=== PATIENT | male | born 1945 | race Caucasian/White ===

== ENCOUNTER → 2017-11-02 11:19 | Outpatient (CLI) | payer MEDICARE, OTHER, SELFPAY ==
--- NOTE | 2017-11-02 | DI.CT.S_ITS ---
PROCEDURE: CT CHEST WO CON INDICATIONS: Pneumonia. TECHNIQUE: Noncontrast 5 mm thick sections acquired from the pulmonary apices to the posterior costophrenic angles. 7 mm thick coronal and sagittal MIP reformats were then acquired. For radiation dose reduction, the following was used: automated exposure control, adjustment of mA and/or kV according to patient size. COMPARISON: None. FINDINGS: Image quality: Excellent. Lungs and pleura: No pleural effusion or pneumothorax. Left basilar subpleural ill-defined nodularity and surrounding groundglass attenuation. Elsewhere, scattered scarring/atelectasis. Central airways appear grossly patent. Mediastinum: Heart size is normal. No pericardial effusion. Coronary artery calcifications. No mediastinal adenopathy by size criteria. Thoracic aorta and central pulmonary arteries are normal in size. Esophagus is normal in caliber. No hiatal hernia. Bones and chest wall: No suspicious bony lesions. No vertebral body compression fractures. No axillary or supraclavicular adenopathy by size criteria. Thyroid gland negative. Abdomen: Visualized upper abdominal solid organs and bowel loops appear normal in the absence of contrast. IMPRESSION: Left basilar subpleural ill-defined 1 cm nodularity and surrounding groundglass attenuation which could represent bronchopneumonia however cannot exclude malignant/metastatic pulmonary nodule; recommend followup noncontrast chest CT in 2 months after treatment. Please correlate clinically. Dictated by: Chris Rico M.D. on 11/02/2017 at 15:23 Approved by: Chris Rico M.D. on 11/02/2017 at 15:32
--- NOTE | 2017-11-03 16:30 | DI.NM.S_ITS ---
DATE OF SERVICE: 11/02/2017 PROCEDURE: Pharmacologic perfusion study. INDICATIONS: Atrial flutter. RADIOPHARMACEUTICAL: 25.1 mCi of technetium-99m Myoview IV was injected at stress, and 24.9 mCi of technetium-99m Myoview IV was injected at rest. CARDIAC STRESS: Initially patient attempted exercise stress test but was able to walk only 1 minute 40 seconds and developed shortness of breath. Oxygen saturation dropped to 88%. The patient was converted to Lexiscan perfusion study. The patient received IV Lexiscan as per standard protocol under the supervision of an attending staff. He remained hemodynamically stable. Baseline rhythm was atypical atrial flutter with controlled ventricular rate with underlying right bundle branch block. There were some nonspecific ST-T changes. During stress, the patient remained in atrial flutter with nonspecific ST-T changes. No new convincing significant inducible ischemic changes or new arrhythmias. The patient didn't have any chest pain; however, he had shortness of breath. RAW DATA: The patient's weight is 220 pounds. There was increased subdiaphragmatic activity. GATED STUDY: Resting LV ejection fraction 58% and stress LV ejection fraction 63%. I don't see any obvious wall motion abnormalities. Resting end-diastolic volume 135 mL. No transient ischemic dilatation. TID ratio is 1.01, which is within normal limits. Lung/heart ratio is 0.32, which is within normal limits. MYOCARDIAL PERFUSION SCAN: Stress supine and resting supine images were compared to each other. Please note that this patient does not have any prone images. The patient was imaged with the right arm down. There appears to be predominantly fixed small-sized mildly decreased perfusion of base-to-mid inferior wall without any obvious reversible ischemia. CONCLUSION: There is a fixed small-sized mildly decreased perfusion of base-to- mid inferior wall. The patient does not have any prone images; hence, it is difficult to comment whether this is a true defect or attenuation artifact. However, inferior wall motion is preserved. There is no significant inferior wall motion abnormality, which goes against a diagnosis of previous transmural myocardial infarction involving inferior wall. His weight is 220 pounds. There is increased subdiaphragmatic activity. Hence, the likelihood that we are dealing with diaphragmatic tissue attenuation artifact is high. There is no reversible ischemia on perfusion scan. Overall LV function is preserved; hence, perfusion scan appears to a low risk myocardial perfusion scan. The patient has poor exercise tolerance. He developed hypoxemia during exertion. I would recommend ruling out a pulmonary etiology. Also, get 2-D echo to rule out any significant structural heart disease or diastolic dysfunction. Clinical correlation is recommended. Sebastien Erickson - EMMANUEL/carmelita/debbi doc#: [id number]/job#: [id number] dd: 11/03/2017 12:56:00 dt: 11/03/2017 15:22:00 DICTATING MD/COPIES TO: Sina Mooney MD COPIES MNE: MIKHAIL
== END ==
PROVIDERS: Family Provider Family Medicine; PCP Family Medicine; Visit Provider Family Medicine
DX: J18.9 Pneumonia, unspecified organism (principal); R91.8 Other nonspecific abnormal finding of lung field; I48.92 Unspecified atrial flutter
CPT/HCPCS: 71250; 78452; 93016; 93017; 93018; A9502; J2785

== ENCOUNTER → 2018-01-24 12:30 | Outpatient (CLI) | payer MEDICARE, OTHER, SELFPAY ==
--- NOTE | 2018-01-24 | DI.CT.S_ITS ---
PROCEDURE: CT CHEST WO CON INDICATIONS: MASS OF LOWER LOBE TECHNIQUE: Noncontrast 5 mm thick sections acquired from the pulmonary apices to the posterior costophrenic angles. 7 mm thick coronal and sagittal MIP reformats were then acquired. For radiation dose reduction, the following was used: automated exposure control, adjustment of mA and/or kV according to patient size. COMPARISON: [facility], CR, CHEST 2 VIEW, 08/25/2014, 17:13. [facility], CT, CT CHEST WO CON, 11/02/2017, 14:07. FINDINGS: Image quality: Excellent. Lungs and pleura: The subpleural nodule in the left lower lobe seen on 11/02/2017 has decreased in size, most likely round atelectasis. There are no bilateral patchy ground glass infiltrates involving both upper and lower lobes, consistent with pneumonitis or pneumonia. No pleural effusions or pneumothorax. Central and peripheral airways are patent and normal in caliber. Mediastinum: Heart size is normal. No pericardial effusion. There is moderate to severe coronary artery calcification. No mediastinal adenopathy by size criteria. Thoracic aorta and central pulmonary arteries are normal in size. Esophagus is normal in caliber. No hiatal hernia. Bones and chest wall: No suspicious bony lesions. No vertebral body compression fractures. No axillary or supraclavicular adenopathy by size criteria. Thyroid gland is normal. Abdomen: Visualized upper abdominal solid organs and bowel loops appear normal in the absence of contrast. IMPRESSION: 1. The subpleural nodular density in the left lower lobe has decreased in size, most likely round atelectasis. 2. New bilateral patchy groundglass infiltrates consistent with pneumonitis or pneumonia. Dictated by: Ady Estrada M.D. on 01/24/2018 at 13:06 Approved by: Ady Estrada M.D. on 01/24/2018 at 13:22
== END ==
PROVIDERS: PCP Family Medicine; Visit Provider Family Medicine
DX: R91.8 Other nonspecific abnormal finding of lung field (principal)
CPT/HCPCS: 71250

== ENCOUNTER → 2020-09-16 09:11 | Outpatient (CLI) | payer MEDICARE, OTHER, SELFPAY ==
--- NOTE | 2020-09-16 | DI.RAD.S_ITS ---
PROCEDURE: XR KNEE LT 3V INDICATIONS: LEFT KNEE PAIN TECHNIQUE: 3 views of the knee were acquired. COMPARISON: None. FINDINGS: Bones: No fractures or dislocations. No suspicious bony lesions. Note is made of a moderately severe degree of medial compartment joint space narrowing and also similar narrowing at the lateral facet of the patellofemoral joint. On the lateral view there is calcification posterior to the knee potentially intra-articular loose bodies. The largest is seen at the knee joint space level, measuring up to 1.6 cm in maximal dimension. Soft tissues: No joint effusion. No suspicious soft tissue calcifications. IMPRESSION: Moderately severe knee joint osteoarthritis at the medial compartment and lateral facet of the patellofemoral joint. Suspect intra-articular loose body at the posterior border of the knee joint measuring up to 1.6 cm. Dictated by: Ham Dixon M.D. on 09/16/2020 at 10:38 Approved by: Ham Dixon M.D. on 09/16/2020 at 10:39
[2020-09-16 09:54] LABS: Bacteria Urine None Seen; WBC Urine None Seen (0-5/HPF)
[2020-09-16 10:31] LABS: Add Manual Diff / Slide Review NO; Basophils Absolute Auto 0 /uL (0-100); Basophils Percent Auto 0.6 % (0-2); Eosinophils Absolute Auto 100 /uL (0-450); Hematocrit 48.6 % (41-53); Lymphocytes Absolute Auto 1600 /uL (1100-4500); Lymphocytes Percent Auto 21.3 % (25-40); Mean Corpuscular HGB Conc 32.9 % (30-36); Mean Corpuscular Hemoglobin 29.8 PG (26-34); Mean Corpuscular Volume 90.5 fL (80-100); Monocytes Absolute Auto 500 /uL (0-900); Monocytes Percent Auto 6.6 % (3-14); Neutrophils Absolute Auto 5100 /uL (1500-7000); Neutrophils Percent Auto 69.5 % (50-75); Platelet Count 198 X10^3/uL (150-400); Red Blood Cell Count 5.37 X10^6/uL (4.5-5.9); Red Cell Distribution Width 14.6 % (11.6-14.8); White Blood Cell Count 7.4 X10^3/uL (4.5-11.0)
[2020-09-16 10:36] LABS: Appearance Urine UA CLEAR; Bilirubin Urine UA NEGATIVE (NEGATIVE); Color Urine UA YELLOW; Glucose Urine UA NEGATIVE (Negative); Ketones Urine UA NEGATIVE (NEGATIVE); Leukocyte Esterase Urine UA NEGATIVE (NEGATIVE); Nitrite Urine UA NEGATIVE (Negative); Occult Blood Urine UA 1+ (Negative); Protein Urine UA NEGATIVE (Negative); Urobilinogen Urine UA 0.2 E.U./dL (0.2)
[2020-09-16 10:44] LABS: Alanine Aminotransferase 22 IU/L (<50); Albumin 4.3 g/dL (3.5-5.0); Albumin Globulin Ratio 1.1 (1.0-2.8); Alkaline Phosphatase 72 U/L (38-126); Aspartate Aminotransferase 27 IU/L (17-59); BUN Creatinine Ratio 28.2 (6-22); Bilirubin Total 1.2 mg/dL (0.2-1.3); Blood Urea Nitrogen 24 mg/dL (9-20); Calcium 9.5 mg/dL (8.4-10.2); Carbon Dioxide 31 mmol/L (22-32); Chloride 99 mmol/L (98-107); Culture Indicated Urine Cult Not Indicated; Estimated Glomerular Filt Rate > 60.0 mL/min (>60); Glucose 112 mg/dL (80-110); HEMOLYSIS < 15 (0-50); Magnesium 1.8 mg/dL (1.6-2.3); Potassium 4.3 mmol/L (3.4-5.1); RBC Urine 0-1/HPF (0-5/HPF); Sodium 137 mmol/L (137-145); Total Protein 8.3 g/dL (6.3-8.2)
[2020-09-16 10:56] LABS: Iron 127 ug/dL (49-181)
[2020-09-16 10:57] LABS: Erythrocyte Sedimentation Rate 2 MM/HR (0-15)
[2020-09-16 11:03] LABS: Creatinine Urine Random 53.5 mg/dL
[2020-09-16 11:06] LABS: Microalbumi Creatinin Ratio Ur 97.1 ug/mg CR (<30); Microalbumin Urine Random 5.2 mg/dL (0-1.6); Total Iron Binding Capacity 390 ug/dL (261-462)
[2020-09-16 11:16] LABS: Ferritin 17 ng/mL (18-464)
[2020-09-16 11:27] LABS: Thyroid Stimulating Hormone 1.27 uIU/mL (0.47-4.68)
[2020-09-16 11:46] LABS: Folate 11.9 ng/mL (2.76-20.0); Vitamin B12 378 pg/mL (239-931)
[2020-09-17 12:09] LABS: Homocysteine 12.3 umol/L (0.0-19.2); PSA Free % 34.4 % (.); PSA, Total 0.9 ng/mL (0.0-4.0)
[2020-09-18 00:56] LABS: Methylmalonic Acid,Serum 257 nmol/L (0-378)
== END ==
PROVIDERS: PCP Family Medicine; Referring Provider Family Medicine; Visit Provider Family Medicine
DX: M25.562 Pain in left knee (principal); M17.12 Unilateral primary osteoarthritis, left knee; I48.91 Unspecified atrial fibrillation; I48.3 Typical atrial flutter
CPT/HCPCS: 36415; 73562; 80053; 81001; 82043; 82570; 82607; 82728; 82746; 83090; 83540; 83550; 83735; 83921; 84153; 84154; 84443; 85025; 85651

== ENCOUNTER → 2020-11-20 13:12 | Outpatient (CLI) | payer MEDICARE, OTHER, SELFPAY ==
--- NOTE | 2020-11-20 | DI.ECHO.S_ITS ---
[facility]---------+ [facility] +---------+ : : [address] [place] : : : : [id number] : : : : Phone: [phone]+ Echocardiogram Report + + :Name: JENNIFER CARLOS Study Date: 11/20/2020 Height: 71 in : :[facility] ReadingLocation: Weight: 215 lb : : Gender: Male BSA: 2.2 m2 : :: 1945 Age: 75 yrs BP: 161/82 mmHg: :Reason For Study: Congestive Heart Failure : :Ordering Physician: SARINA, : :TIP Gordillo Performed By: Stephen Greenberg : :Referring: TIP BRANCH : + + Interpretation Summary Left ventricular systolic function is normal with an estimated ejection fraction of 60 to 65% without any focal wall motion abnormalities although the interventricular septum is flattened, consistent with a right ventricular pressure overload condition. Left ventricular size and wall thickness are normal. Diastolic function could not be accurately assessed because of his relatively rapid heart rate. The right ventricle is moderately enlarged and mildly hypokinetic. There is moderate pulmonary hypertension with the right ventricular systolic pressure estimated at 49 mmHg with a CVP of 3 mmHg. Left atrial size is normal while the right atrium is likely mild to moderately enlarged. There is moderate aortic valve sclerosis but no stenosis and mild to moderate tricuspid regurgitation but no other significant valvular abnormality. Procedure: A two-dimensional transthoracic echocardiogram with color flow and Doppler was performed. The study quality was technically adequate. There is no prior echocardiogram noted for this patient. The patient was in sinus rhythm with heart rates between 90-100 bpm during the exam. Left Ventricle: The left ventricle appears normal in size, wall thickness, and systolic function without any focal wall motion abnormalities. The ejection fraction is estimated to be 60-65%. The interventricular septum is flattened, consistent with a right ventricular pressure overload condition. Diastolic function could not be accurately assessed due to tachycardia. Right Ventricle: The right ventricle is moderately dilated. Right ventricular systolic function is mildly reduced. Atria: The left atrial size is normal. The right atrium is mild to moderately dilated. There is no Doppler evidence for an interatrial shunt. Mitral Valve: The mitral valve is normal in structure and function. There is mild mitral annular calcification. There is no mitral regurgitation noted. Aortic Valve: There is moderate aortic valve sclerosis. The aortic valve is moderately calcified. There is minimally reduced leaflet mobility. No aortic regurgitation is present. Tricuspid Valve: The tricuspid valve is normal in structure and function. There is mild to moderate tricuspid regurgitation. The right ventricular systolic pressure is estimated to be at least 49 mmHg based on an estimated right atrial pressure of 3 mm Hg. Pulmonic Valve: The pulmonic valve is normal in structure and function. There is a trace or physiologic amount of pulmonic regurgitation. Great Vessels: The aortic root is normal size. The dimensions of the ascending aorta are normal. The IVC is of normal diameter and collapses greater than 50% with a sniff. This suggests a low right atrial pressure of 3 mm Hg. Pericardium/ Pleura There is no pericardial effusion. There is no pleural effusion. MMode/2D Measurements & Calculations LVIDd: 5.0 cm LVOT diam: 2.1 cm LVIDs: 3.2 cm Ao root diam: 3.4 cm FS: 36.6 % asc Aorta Diam: 3.1 cm IVSd: 1.2 cm LVPWd: 1.0 cm LV alonzo. diameter/BSA (cm/m^2): 2.3 LV sys. diameter/BSA (cm/m^2): 1.5 LA A2 area: 14.0 cm2 RA area: 23.4 cm2 LA A4 area: 15.0 cm2 IVC diam: 1.5 cm LA length (vol): 4.8 cm LA vol: 37.0 ml LA vol index: 17.0 ml/m2 RVD1 (basal): 4.9 cm TAPSE: 1.5 cm Doppler Measurements & Calculations Ao V2 max: 175.7 cm/sec LVOT Max Chris: 109.9 cm/sec Ao V2 mean: 132.4 cm/sec LV V1 max P.8 mmHg Ao max P.3 mmHg LV V1 VTI: 18.6 cm Ao mean P.6 mmHg ERIC(I,D): 2.3 cm2 Ao V2 VTI: 27.8 cm ERIC(V,D): 2.2 cm2 sev ratio: 0.67 ERIC indexed to BSA (cm^2/m^2): 1.1 MV E max chris: 95.9 cm/sec TR max chris: 337.9 cm/sec MV A max chris: 130.7 cm/sec TR max P.7 mmHg MV E/A: 0.73 PA V2 max: 92.2 cm/sec MV dec time: 0.23 sec PA V2 mean: 65.0 cm/sec PA mean P.9 mmHg PA pr(Accel): 39.6 mmHg [facility] 63.9 ml Reading Physician:05:10 PM
== END ==
PROVIDERS: PCP Family Medicine; Referring Provider Family Medicine; Visit Provider Family Medicine
DX: I50.32 Chronic diastolic (congestive) heart failure (principal)
CPT/HCPCS: 93306

== ENCOUNTER → 2020-12-03 12:55 | Outpatient (CLI) | payer MEDICARE, OTHER, SELFPAY ==
--- NOTE | 2020-12-03 12:57 | DI.CT.S_ITS ---
PROCEDURE: CT CHEST WO CON INDICATIONS: Panlobular emphysema TECHNIQUE: Noncontrast 5 mm thick sections acquired from the pulmonary apices to the posterior costophrenic angles. 1 mm lung window, 5 mm thick coronal and sagittal and 7 mm axial MIP reformats were then acquired. For radiation dose reduction, the following was used: automated exposure control, adjustment of mA and/or kV according to patient size. COMPARISON: [facility], CT, CT CHEST WO CON, 01/24/2018, 12:31. [facility], CT, CT CHEST WO CON, 11/02/2017, 14:07. FINDINGS: Image quality: Excellent. Lungs and pleura: No acute air space opacities found. No evidence of early manifestation of lung malignancy. There is a chronic interstitial prominence and slight alveolitis superimposed, with centrilobular emphysema and no sign of chronic bronchitis or bronchiectasis. No pleural effusions or pneumothorax. Central and peripheral airways are patent and normal in caliber. Mediastinum: Heart size is normal. No pericardial effusion. No mediastinal adenopathy by size criteria. Thoracic aorta and central pulmonary arteries are normal in size. Esophagus is normal in caliber. No hiatal hernia. Bones and chest wall: No suspicious bony lesions. No vertebral body compression fractures. No axillary or supraclavicular adenopathy by size criteria. Thyroid gland is not well seen . Abdomen: Visualized upper abdominal solid organs and bowel loops appear normal in the absence of contrast. IMPRESSION: Stable interstitial lung disease and mild chronic alveolitis, without appreciable change from the earlier study in January of 2018. No sign of progression to pulmonary fibrosis. No pneumonia or neoplasm found. Dictated by: Ham Dixon M.D. on 12/03/2020 at 15:23 Approved by: Ham Dixon M.D. on 12/03/2020 at 15:27
== END ==
PROVIDERS: PCP Family Medicine; Referring Provider Family Medicine; Visit Provider Family Medicine
DX: J43.1 Panlobular emphysema (principal); J84.9 Interstitial pulmonary disease, unspecified; R91.8 Other nonspecific abnormal finding of lung field
CPT/HCPCS: 71250

== ENCOUNTER → 2021-03-26 08:11 | Outpatient (CLI) | payer MEDICARE, OTHER, SELFPAY ==
[2021-03-26 20:43] LABS: COVID19 - ORCAS (NP or Nasal) Negative (Negative)
== END ==
PROVIDERS: PCP Family Medicine; Visit Provider Family Medicine
DX: Z20.822 Contact with and (suspected) exposure to COVID-19 (principal)
CPT/HCPCS: C9803; U0003

== ENCOUNTER → 2021-04-27 11:33 | Outpatient (CLI) | payer MEDICARE, OTHER, SELFPAY ==
[2021-04-27 19:03] LABS: Add Manual Diff / Slide Review NO; Basophils Absolute Auto 0 /uL (0-100); Basophils Percent Auto 0.4 % (0-2); Eosinophils Absolute Auto 200 /uL (0-450); Eosinophils Percent Auto 1.7 % (2-4); Hematocrit 37.9 % (41-53); Hemoglobin 12.5 g/dL (13.5-17.5); Lymphocytes Absolute Auto 2100 /uL (1100-4500); Lymphocytes Percent Auto 23.1 % (25-40); Mean Corpuscular HGB Conc 33.1 % (30-36); Mean Corpuscular Hemoglobin 31.1 PG (26-34); Mean Corpuscular Volume 94.1 fL (80-100); Monocytes Absolute Auto 700 /uL (0-900); Monocytes Percent Auto 7.2 % (3-14); Neutrophils Absolute Auto 6200 /uL (1500-7000); Neutrophils Percent Auto 67.6 % (50-75); Platelet Count 217 X10^3/uL (150-400); Red Blood Cell Count 4.03 X10^6/uL (4.5-5.9); Red Cell Distribution Width 14.1 % (11.6-14.8); White Blood Cell Count 9.2 X10^3/uL (4.5-11.0)
[2021-04-27 19:12] LABS: BUN Creatinine Ratio 31.3 (6-22); Blood Urea Nitrogen 21 mg/dL (9-20); Calcium 9.2 mg/dL (8.4-10.2); Carbon Dioxide 29 mmol/L (22-32); Chloride 101 mmol/L (98-107); Estimated Glomerular Filt Rate > 60.0 mL/min (>60); Glucose 101 mg/dL (80-110); HEMOLYSIS < 15 (0-50); Potassium 4.3 mmol/L (3.4-5.1); Sodium 136 mmol/L (137-145)
== END ==
PROVIDERS: PCP Family Medicine; Referring Provider Internal Medicine Cardiovascular Disease; Visit Provider Internal Medicine Cardiovascular Disease
DX: I25.10 Atherosclerotic heart disease of native coronary artery without angina pectoris (principal); R94.39 Abnormal result of other cardiovascular function study
CPT/HCPCS: 80048; 85025

== ENCOUNTER → 2021-05-24 08:18 | Outpatient (CLI) | payer MEDICARE, OTHER, SELFPAY ==
[2021-05-26 00:26] LABS: COVID19 - ORCAS (NP or Nasal) Negative (Negative)
== END ==
PROVIDERS: PCP Family Medicine; Visit Provider Family Medicine
DX: Z20.822 Contact with and (suspected) exposure to COVID-19 (principal)
CPT/HCPCS: C9803; U0003

== ENCOUNTER → 2021-07-19 09:33 | Outpatient (CLI) | payer MEDICARE, OTHER, SELFPAY ==
[2021-07-19 20:34] LABS: COVID19 - ORCAS (NP or Nasal) Negative (Negative)
== END ==
PROVIDERS: PCP Family Medicine; Visit Provider Physician Assistant
DX: Z01.812 Encounter for preprocedural laboratory examination (principal); Z20.822 Contact with and (suspected) exposure to COVID-19
CPT/HCPCS: C9803; U0003

== ENCOUNTER → 2021-09-10 09:00 | Outpatient (CLI) | payer MEDICARE, OTHER, SELFPAY ==
[2021-09-10 18:38] LABS: Add Manual Diff / Slide Review NO; Basophils Absolute Auto 0 /uL (0-100); Basophils Percent Auto 0.7 % (0-2); Eosinophils Absolute Auto 200 /uL (0-450); Eosinophils Percent Auto 2.9 % (2-4); Hematocrit 40.8 % (41-53); Hemoglobin 12.6 g/dL (13.5-17.5); Lymphocytes Absolute Auto 1800 /uL (1100-4500); Lymphocytes Percent Auto 24.7 % (25-40); Mean Corpuscular HGB Conc 30.9 % (30-36); Mean Corpuscular Hemoglobin 22.9 PG (26-34); Mean Corpuscular Volume 73.9 fL (80-100); Monocytes Absolute Auto 600 /uL (0-900); Monocytes Percent Auto 8.3 % (3-14); Neutrophils Absolute Auto 4600 /uL (1500-7000); Neutrophils Percent Auto 63.4 % (50-75); Platelet Count 180 X10^3/uL (150-400); Red Blood Cell Count 5.53 X10^6/uL (4.5-5.9); Red Cell Distribution Width 19.8 % (11.6-14.8); White Blood Cell Count 7.2 X10^3/uL (4.5-11.0)
[2021-09-10 18:47] LABS: Blood Urea Nitrogen 24 mg/dL (9-20); Calcium 9.1 mg/dL (8.4-10.2); Carbon Dioxide 32 mmol/L (22-32); Chloride 101 mmol/L (98-107); Estimated Glomerular Filt Rate > 60.0 mL/min (>60); Glucose 116 mg/dL (80-110); HEMOLYSIS < 15 (0-50); Potassium 4.5 mmol/L (3.4-5.1); Sodium 139 mmol/L (137-145)
[2021-09-10 18:51] LABS: Hemoglobin A1C% w Est Avg Glu 6.4 % (4.0-6.0)
== END ==
PROVIDERS: PCP Family Medicine; Visit Provider Orthopaedic Surgery
DX: R73.9 Hyperglycemia, unspecified (principal); Z01.812 Encounter for preprocedural laboratory examination
CPT/HCPCS: 80048; 83036; 85025

== ENCOUNTER → 2021-09-13 08:56 | Outpatient (CLI) | payer MEDICARE, OTHER, SELFPAY ==
[2021-09-13 20:50] LABS: COVID19 - ORCAS (NP or Nasal) Negative (Negative)
== END ==
PROVIDERS: PCP Family Medicine; Visit Provider Family Medicine
DX: Z01.818 Encounter for other preprocedural examination (principal)
CPT/HCPCS: C9803; U0003

== ENCOUNTER → 2021-09-16 10:58 | Outpatient (CLI) | payer MEDICARE, OTHER, SELFPAY ==
[2021-09-16 20:01] LABS: Prostate Specific Antigen Scrn 0.799 ng/mL (0.1-4.0)
[2021-09-17 08:26] LABS: Cholesterol 119 mg/dL (140-199); HDL Cholesterol 52 mg/dL (40-60); LDL Cholesterol Calculated 46 mg/dL (<100); Triglycerides 105 mg/dL (35-150)
== END ==
PROVIDERS: PCP Physician Assistant; Visit Provider Physician Assistant
DX: Z12.5 Encounter for screening for malignant neoplasm of prostate (principal); E78.2 Mixed hyperlipidemia
CPT/HCPCS: 80061; G0103

== ENCOUNTER → 2021-10-04 09:36 | Outpatient (CLI) | payer MEDICARE, OTHER, SELFPAY ==
[2021-10-04 18:33] LABS: BUN Creatinine Ratio 30.3 (6-22); Blood Urea Nitrogen 27 mg/dL (9-20); Calcium 9.2 mg/dL (8.4-10.2); Carbon Dioxide 31 mmol/L (22-32); Chloride 103 mmol/L (98-107); Estimated Glomerular Filt Rate > 60 mL/min (>60); Glucose 111 mg/dL (80-110); HEMOLYSIS < 15 (0-50); Potassium 4.5 mmol/L (3.4-5.1); Sodium 141 mmol/L (137-145)
[2021-10-04 18:37] LABS: Add Manual Diff / Slide Review NO; Basophils Absolute Auto 100 /uL (0-100); Basophils Percent Auto 0.7 % (0-2); Eosinophils Absolute Auto 200 /uL (0-450); Eosinophils Percent Auto 2.1 % (2-4); Hematocrit 43.4 % (41-53); Hemoglobin 13.6 g/dL (13.5-17.5); Lymphocytes Absolute Auto 1800 /uL (1100-4500); Lymphocytes Percent Auto 23.8 % (25-40); Mean Corpuscular HGB Conc 31.4 % (30-36); Mean Corpuscular Hemoglobin 24.9 PG (26-34); Mean Corpuscular Volume 79.2 fL (80-100); Monocytes Absolute Auto 600 /uL (0-900); Monocytes Percent Auto 8.3 % (3-14); Neutrophils Absolute Auto 4900 /uL (1500-7000); Neutrophils Percent Auto 65.1 % (50-75); Platelet Count 149 X10^3/uL (150-400); Red Blood Cell Count 5.47 X10^6/uL (4.5-5.9); Red Cell Distribution Width 25.7 % (11.6-14.8); White Blood Cell Count 7.5 X10^3/uL (4.5-11.0)
[2021-10-04 18:38] LABS: Hemoglobin A1C% w Est Avg Glu 5.9 % (4.0-6.0)
[2021-10-04 18:55] LABS: Anisocytosis 2+; Microcytosis 1+; Poikilocytosis 1+; Polychromasia 1+
[2021-10-04 19:52] LABS: COVID19 - ORCAS (NP or Nasal) Negative (Negative)
== END ==
PROVIDERS: Orthopaedic Surgery; PCP Physician Assistant; Visit Provider Physician Assistant
DX: R73.9 Hyperglycemia, unspecified (principal); Z01.812 Encounter for preprocedural laboratory examination; Z20.822 Contact with and (suspected) exposure to COVID-19; I50.9 Heart failure, unspecified; R73.03 Prediabetes; D64.9 Anemia, unspecified
CPT/HCPCS: 80048; 83036; 85025; C9803; U0003

== ENCOUNTER 2021-10-06 09:27 | Day surgery (SDC) | payer MEDICARE, OTHER, SELFPAY ==
[2021-09-28 09:47] VITALS: BMI 31.4
[2021-10-06] VITALS (17 sets, daily range): BP systolic 103–151; BP diastolic 73–93; PULSE 70–93; RESP 10–19; TEMP 36–37; O2SAT 91–98; BMI 31.4
--- NOTE | 2021-10-06 06:00 | DI.RAD.S_ITS ---
PROCEDURE: XR KNEE LT 1TO2V INDICATIONS: postop total knee TECHNIQUE: 2 view(s) of the knee acquired. COMPARISON: [facility], CR, XR KNEE LT 3V, 09/16/2020, 9:21. FINDINGS: Bones: Patient is status post knee joint arthroplasty. Hardware components are in expected positions. Visualized bony structures are intact. Soft tissues: Overlying postoperative changes are noted. Diffuse atherosclerotic vascular calcification noted. IMPRESSION: Left total knee arthroplasty in good position. Approved by: Ronal Davies M.D. on 10/06/2021 at 15:56
[2021-10-06] MEDS: PREGABALIN 75 MG CAPSULE PO (09:58)
[2021-10-06] MEDS: CELECOXIB 200 MG CAPSULE PO (09:58)
[2021-10-06] MEDS: ACETAMINOPHEN 325 MG TABLET 975 MG PO (09:58)
--- NOTE | 2021-10-06 10:40 | PM.PREOP ---
Pre-operative Note COVID-19 COVID-19 status: Negative Result date/Date tested (Pos, Neg/Pending): 10/04/21 Interval Note History & Physical reviewed/Exam performed by Physician: Yes Changes to H&P: No
[2021-10-06] MEDS: CEFAZOLIN 2 GM/20 ML SYRINGE IV (11:49)
[2021-10-06] MEDS: TRANEXAMIC ACID 1,000 MG VIAL 1000 MG INJ ×2 (11:49→12:55)
--- NOTE | 2021-10-06 12:03 | SUR.OPER ---
Supine on padded OR bed. Pillow under head, arms secured on padded armboards <90 degree abduction. Safety belt across torso. Non-operative leg secured with tape over blanket over lower leg. Operative leg secured in [place]. Foam padded brace at thigh of operative leg.
--- NOTE | 2021-10-06 12:05 | SUR.OPER ---
Left calf and ankle with dry, flaky skin and purplish discoloration. No break in skin around surgical site. Small abrasion on left forearm which was present prior to patient arrival to hospital. Covered with band-aid. Not visualized.
[2021-10-06] MEDS: MORPHINE 4 MG/ML INJ INJ (12:42)
[2021-10-06] MEDS: BUPIVACAINE LIPOSOME 266 MG/20 ML VIAL INJ (12:42)
[2021-10-06] MEDS: BUPIVACAINE 0.25% (PF) 60 ML, EPINEPHrine 0.3 MG INJ (12:42)
[2021-10-06] MEDS: LACTATED RINGERS 1,000 ML 42 ML IV (13:18)
--- NOTE | 2021-10-06 13:19 | P.OP_ITS ---
Operative Date/Time/Diagnoses Date of procedure: 10/06/21 Time of procedure: 13:00 Pre-op diagnosis: Left knee osteoarthritis Post-op diagnosis: same Procedure & Clinicians Procedure: Left total knee replacement Same procedure as scheduled: Yes Indications: The patient has had progressively worsening left knee pain with radiographic changes consistent with arthritis. Non-operative management has failed and the patient has requested total knee replacement. The risks, benefits and alternatives to surgery were discussed with the patient prior to proceeding. Risks discussed included, but were not limited to, failure to relieve pain, stiffness, infection, nerve damage, deep venous thrombosis, pulmonary embolism, stroke, coma, heart attack, permanent paralysis and , as well as the potential need for eventual revision of the prosthetic. Surgeon: Gutierrez Torres Chopper Gun Operator: Fay Azevedo Click Yes if Unassisted: No Anesthesia Type: General and Local Operative Notes Findings: Severe medial and patellofemoral osteoarthritis moderate lateral osteoarthritis. Closure Type: primary Specimen(s): none sent Prosthetic devices, grafts, tissues, transplants, or devices: Implants used in this procedure were manufactured by the [employer] and included the BCS II Journey total knee replacement with a size 7 left cobalt chromium femur, size 6 left non porous tibial base plate, a 9 mm cross-linked polyethylene tibial insert and a 35 mm oval Christina II patella. Applied: implant(s) Estimated Blood Loss (mL): 25 Blood products transfused: none Tourniquet time (min): 58 Procedure in detail: The patient was seen in the pre-operative area, where the left knee was identified as the operative site and this was marked with my initials. The patient received pre-operative antibiotics, and was taken to the operating room and placed on the operative table in the supine position. After satisfactory anesthesia, a realtime reporter out was performed. The left leg was encircled with a tourniquet about the proximal thigh, and the leg was prepared from the toes to the tourniquet with ChloroPrep in the usual fashion and draped through sterile drapes. The leg was elevated and exsanguinated with Eschmark bandage and the tourniquet inflated to 250 mmHg pressure. The knee was approached through an approximately 18 cm incision centered over the patella and carried into the knee through a medial parapatellar arthrotomy. The anterior osteophytes and soft tissues were removed. The rotational landmarks of Lissette's line and the transepicondylar axis were marked on the femur with electrocautery, and intramedullary guide holes for the femur and tibia were created. The distal femoral cut was made in 6 degrees of valgus using the intramedullary guide at the +2 cut setting due to a flexion contracture The proximal tibial cut was then made using the intramedullary guide, taking 9 mm of bone off the less involved side. The extension gap was checked and the rotation of the femoral component confirmed with the gap balancing blocks. The anterior, posterior and chamfer cuts were then made. The posterior osteophytes and soft tissues were then removed. The posterior capsule was injected with part of a mixture of 60 ml 0.25% Marcaine mixed with 20 ml Exparel and 4 mg of morphine for post-operative pain control. The remainder of this mixture was injected into the capsule and subcutaneous tissues during cement curing. The tibia was prepared with the rotation set by an extra medullary guide. Trial tibial and femoral components were then placed and the intercondylar notch cut through the femoral trial. Range of motion was 0-135 degrees, with good stability throughout the range. The patella was then cut to accommodate the patellar prosthetic. There was no need for a lateral release. The trials were then removed, and the femoral hole plugged with a bone plug. The bone was prepared with pulsatile lavage, and dried with a sponge. Cement was applied and the final prosthetics placed. Excess cement was removed during and after cement curing. After confirming there was no extruded cement posteriorly, the final tibial insert was placed. The knee was copiously irrigated and the tourniquet deflated. Hemostasis was obtained. The capsule was closed with interrupted # 2 polyester sutures. The subcutaneous layer was closed with 3-0 Vicryl, and the skin with a running 3-0 V-Lock suture and Dermabond. An Aquacel Ag dressing was applied and the patient was taken to recovery having tolerated the procedure well. Complications: none Post-operative Condition: stable Disposition: PACU Plan for aftercare: The patient will be maintained on a standard total knee replacement protocol with weight bearing as tolerated. The patient will receive aspirin and sequential compression devices for DVT prophylaxis. The patient will be discharged home when safe for the home environment.
[2021-10-06] MEDS: fentaNYL 100 MCG/2 ML INJ IV (13:44)
[2021-10-06] MEDS: OXYCODONE IR 5 MG TABLET PO (13:56)
[2021-10-06] MEDS: MEPERIDINE 50 MG/ML INJ 12.5 MG IV (13:58)
[2021-10-06] MEDS: LACTATED RINGERS 1,000 ML 100 ML IV (15:33)
[2021-10-06] MEDS: ACETAMINOPHEN 325 MG TABLET 650 MG PO ×2 (15:33→21:04)
[2021-10-06] MEDS: IBUPROFEN 400 MG TABLET PO ×2 (18:18→21:03)
--- NOTE | 2021-10-06 19:31 | PC.NURSE ---
Pt arrived from PACU at 1510, A&Ox4, VSS on 2L NC. C/o 3/10 pain to L knee, paul wrap to knee c/d/i. Lungs dim to auscultation, CMS intact, no c/o nausea. +1 pitting edema to L foot, pedal pulses bilat intact. Pt resting comfortably in bed, oriented to room and call sesay. Will continue to monitor.
[2021-10-06] MEDS: BUDESONIDE 0.5 MG/2 ML NEB INH (20:00)
[2021-10-06] MEDS: ALBUTEROL 2.5 MG/3 ML NEB (ADULT) INH (20:00)
[2021-10-06] MEDS: ATORVASTATIN 20 MG TABLET 40 MG PO (21:03)
[2021-10-06] MEDS: DOCUSATE 100 MG CAPSULE PO (21:04)
[2021-10-06] MEDS: METFORMIN XR 500 MG TABLET PO (21:52)
[2021-10-07 02:00] VITALS: BP 105/66; PULSE 89; RESP 21; TEMP 36.5; O2SAT 95
[2021-10-07] MEDS: IBUPROFEN 400 MG TABLET PO ×2 (05:16→09:03)
[2021-10-07 06:28] VITALS: BP 150/69; PULSE 80; RESP 19; TEMP 36.6; O2SAT 95
[2021-10-07 07:00] LABS: Hematocrit 38.4 % (41-53); Hemoglobin 11.9 g/dL (13.5-17.5)
[2021-10-07] MEDS: ALBUTEROL 2.5 MG/3 ML NEB (ADULT) INH ×2 (07:53→11:49)
[2021-10-07] MEDS: BUDESONIDE 0.5 MG/2 ML NEB INH (07:54)
[2021-10-07 07:56] VITALS: O2SAT 93
--- NOTE | 2021-10-07 08:05 | PM.DS.1 ---
History of Present Illness History of Present Illness Date Patient Seen: 10/07/21 Time Patient Seen: 08:06 Chief complaint: Left knee pain s/p left TKA Narrative: Patient is complaining of [id number] left knee pain. He denies any nausea or vomiting, no fevers, chills, night sweats. The patient notes his photovoltaic testing technician recommended stopping his Plavix and changing to Xarelto 20 mg daily. He has not worked with physical therapy yet, overall he is feeling good would like to be discharged home today. Discharge Providers Provider Discharge Date: 10/07/21 Primary care physician: Heidi Calzada PA-C Consults: 10/06/21 15:01 Consult to Discharge Planning Routine Comment: Consult to Physical Therapy Evaluate & Treat Comment: Physician Instructions: postop TKA protocol Consult to Respiratory Therapy Evaluate & Treat Comment: Physician Instructions: Evaluate and treat Discharge provider: Fay Azevedo PA-C Summary Hospital Course Discharge Diagnosis: Left knee osteoarthritis Hospital Course: Operative Date/Time/Diagnoses Date of procedure: 10/06/21 Time of procedure: 13:00 Procedure & Clinicians Procedure: Left total knee replacement Same procedure as scheduled: Yes Indications: The patient has had progressively worsening left knee pain with radiographic changes consistent with arthritis. Non-operative management has failed and the patient has requested total knee replacement. The risks, benefits and alternatives to surgery were discussed with the patient prior to proceeding. Risks discussed included, but were not limited to, failure to relieve pain, stiffness, infection, nerve damage, deep venous thrombosis, pulmonary embolism, stroke, coma, heart attack, permanent paralysis and , as well as the potential need for eventual revision of the prosthetic. Surgeon: Gutierrez Torres Sheet Metal Duct Worker Supervisor: Fay Azevedo Click Yes if Unassisted: No Anesthesia Type: General and Local Operative Notes Findings: Severe medial and patellofemoral osteoarthritis moderate lateral osteoarthritis. Closure Type: primary Specimen(s): none sent Prosthetic devices, grafts, tissues, transplants, or devices: Implants used in this procedure were manufactured by the [employer] and included the BCS II Journey total knee replacement with a size 7 left cobalt chromium femur, size 6 left non porous tibial base plate, a 9 mm cross-linked polyethylene tibial insert and a 35 mm oval Christina II patella. Applied: implant(s) Estimated Blood Loss (mL): 25 Blood products transfused: none Tourniquet time (min): 58 Status at Discharge Cognitive/behavioral status at discharge: oriented Functional status at discharge: uses cane/walker Overall status at discharge: patient is progressing back to baseline Exam Vital Signs (past 8 hours): - 10/07/21 02:00 10/07/21 06:28 10/07/21 07:56 Temperature 97.7 F 97.9 F Pulse Rate 89 80 Respiratory Rate 21 19 Blood Pressure 105/66 150/69 H Pulse Oximetry 95 95 93 Oxygen Delivery Method Nasal Cannula Oxygen Flow Rate 2 Narrative Exam Narrative: Pleasant 76-year-old male, resting comfortably in bed, no acute distress. Dressing is clean, dry, intact. Bilateral lower extremity: Motor functions are grossly intact, sensation is grossly intact to light touch, calves are soft and nontender to palpation. Objective Labs Result Diagrams: 10/07/21 06:40 Labs: Laboratory Results - last 24 hr 10/07/21 06:40 Hgb 11.9 L Hct 38.4 L PFSH Medical History Afib (~2017) Anesthesia Anticoagulant long-term use (~2017) CAD (coronary artery disease) COPD (chronic obstructive pulmonary disease) Current every day smoker ILD (interstitial lung disease) Normal esophagogastroduodenoscopy (EGD) (2020) PNA (pneumonia) Psoriasis Surgical History History of arthroplasty of right knee (08/23/16) History of cardiac cath History of surgery Hx of appendectomy Hx of colonoscopy Hx of heart artery stent (03/29/21) Hx of hernia repair Hx of skin graft Social History household members: spouse Smoking Status: Former smoker alcohol intake: current Discharge Assessment & Plan Assessment and Plan Assessment: Stable status post left total knee arthroplasty Plan of Treatment: -mobilize with PT. Weightbearing as tolerated front wheel walker -continue with multimodal pain management -discontinue Plavix and aspirin, begin Xarelto 20 mg daily, per photovoltaic testing technician -continue to monitor oxygen levels, the patient was in the mid 70s this morning. Encourage incentive spirometer more frequently as well as sitting up in a chair. -likely DC home today if cleared by PT in oxygenation is better. Discharge Plan Discharge Plan Patient Disposition: Home Discharge orders & Medications Discharge Orders: Discharge (Order); Ordered 10/07/21 Ordered By: Fay Azevedo Prescriptions: New acetaminophen 500 mg capsule 500 mg PO Q4H MDD Max 3000 mg per day PRN (Reason: fever or pain) Qty: 90 0RF docusate sodium 100 mg Capsule 100 mg PO BID PRN (Reason: constipation) Qty: 20 0RF oxycodone 5 mg Tablet 5 mg PO Q3HR PRN (Reason: Pain, Moderate (4-6)) Qty: 42 0RF Xarelto 20 mg tablet 20 mg PO DAILY Qty: 30 0RF Rx Instructions: must administer with evening meal Continued fluticasone propionate 50 mcg/actuation spray,suspension 2 spray Intranasal QDAY Qty: 16 3RF Breo Ellipta 100-25 mcg/dose blister with device 1 inh inhalation DAILY Qty: 30 5RF rosuvastatin 20 mg Tablet 20 mg PO DAILY 0RF metoprolol succinate 25 mg tablet extended release 24 hr 12.5 mg PO DAILY 0RF albuterol sulfate [Ventolin HFA] 90 mcg/actuation HFA aerosol inhaler 2 puff INHALATION Q4-6H PRN (Reason: Shortness Of Breath) Qty: 8.5 5RF ferrous sulfate 325 mg (65 mg iron) tablet 325 mg PO DAILY Qty: 90 0RF Rx Instructions: Take with Vitamin C ascorbic acid (vitamin C) 500 mg tablet 500 mg PO DAILY Qty: 90 0RF Rx Instructions: Take with iron metformin 500 mg tablet,ER tim.retention 24 hr 500 mg PO BID Qty: 60 5RF Discontinued clopidogrel 75 mg Tablet 75 mg PO DAILY 0RF acetaminophen [Tylenol Extra Strength] 500 mg tablet 500 mg PO Q6H PRN (Reason: Pain) 0RF Follow up/Referrals: Gutierrez Torres MD [Physician] - 2 Weeks Heidi Calzada PA-C [Primary Care Provider] - Diet/Activity/Treatments Diet: Diet as Tolerated Other treatments: Medications: -OTC Tylenol 500 mg 1 tablet every 4 hours as needed for pain/fever. Max 6 tablets per day. -Oxycodone 5 mg take 1-2 tablets every 4 hours as needed for moderate-severe pain (narcotic pain medication). -Xarelto per photovoltaic testing technician to prevent blood clots -As needed medications: -Ducolax and /or MiraLax as needed for constipation from narcotic pain medications. -Pepcid AC as needed for stomach upset (usually from aspirin or ibuprofen). Dressing/Wound care: -Remove the [place] wrap 48 hours after surgery. -Keep Aquacell dressing in place until postoperative follow-up office visit. -Okay to shower. Keep wound out of direct water stream. No soaking or submerging until all the scabs fall off (approximately 6 weeks). -Please call the office if dressing becomes wet, soiled, or saturated. Activities: -Weight-bearing as tolerated. Use front wheeled walker, and progress to cane when safe. -Continue with home exercises as directed by your physical therapist. -Elevate ?toes above the nose if you have significant swelling in your lower leg. (A wedge pillow is easiest.) -Ice your incision as needed for pain/inflammation/swelling. Protect your skin with a folded pillowcase. Follow-up: -Follow-up with your surgeon or PA in the office in 10-14 days after surgery. -Follow-up with your surgeon 6 weeks postoperatively. Call the office if you have chest pain, shortness of breath, significant swelling that will not resolve with elevating, fever over 101?, significantly worsening pain. [facility]: [phone] Skin/Wound/Dressing Care Report to your healthcare provider any signs of infection, such as:: chills, fever, night sweats, unusual drainage and unusual redness Visit Report/Discharge Packet Instructions: DI for Knee Replacement Stand Alone Forms: Surgery Discharge Discharge Data Primary Care Provider: Heidi Calzada Attending Provider: Gutierrez Torres Quality VTE Deep Vein Thrombosis/Pulmonary Embolism Present on Admission: No
[2021-10-07 09:00] VITALS: BP 120/65; PULSE 101; RESP 18; TEMP 36.7; O2SAT 92
[2021-10-07] MEDS: RIVAROXABAN 10 MG TABLET 20 MG PO (09:02)
[2021-10-07] MEDS: FERROUS SULFATE 325 MG TABLET PO (09:02)
[2021-10-07 09:03] VITALS: BP 120/65; PULSE 103
[2021-10-07] MEDS: ASCORBIC ACID 500 MG TABLET PO (09:03)
[2021-10-07] MEDS: METOPROLOL ER 25 MG TABLET 12.5 MG PO (09:03)
[2021-10-07] MEDS: METFORMIN XR 500 MG TABLET PO (09:03)
[2021-10-07] MEDS: ACETAMINOPHEN 325 MG TABLET 650 MG PO ×2 (09:07→14:28)
--- NOTE | 2021-10-07 09:15 | PT.IIE ---
Current Diagnoses Unilateral primary osteoarthritis, left knee (10/06/21) Presence of right artificial knee joint (10/06/21) Surgery Performed Operation Date: 10/06/21 11:00 Actual Procedures p Total Knee Arthroplasty(Left) - Gutierrez Torres MD Medical History (Last Reviewed 10/07/21 @ 08:07 by Fay Azevedo PA-C) Afib (~2017) Anesthesia Anticoagulant long-term use (~2017) CAD (coronary artery disease) COPD (chronic obstructive pulmonary disease) Current every day smoker ILD (interstitial lung disease) Normal esophagogastroduodenoscopy (EGD) (2020) PNA (pneumonia) Psoriasis Physical Therapy Inpatient Evaluation/Re-Eval M1 PT/OT-IP Prior Functional Status Start: 10/07/21 11:31 Freq: NEEDED Status: Active Protocol: Document 10/07/21 09:15 AB (Rec: 10/07/21 11:49 AB [email or web address]) Medical Review Prior Functional Status Medical History Reviewed Yes Communication able to maken needs known Mobility and Gait pt stated that he is modified independent with all mobilities and ambulation using SPC but has been using a FWW for a few weeks due to knee pain Social History Household Members spouse Living Arrangements House Number of Floors (Floors) 3 or More Floors Number of Stairs To Enter/Railing? no steps to enter pt will stay on main level of the house Home Environment High Toilet,Walk in Shower Home Equipment Front Wheel Walker,Straight Cane,Shower Seat with Backrest ,Grab Bars Near Toilet M2 PT-IP Current Condition Start: 10/07/21 11:31 Freq: NEEDED Status: Active Protocol: Document 10/07/21 09:15 AB (Rec: 10/07/21 11:49 AB [email or web address]) Physical Therapy Current Condition Current Condition Evaluation Date 10/07/21 Treatment Diagnosis s/p L TKA; difficulty in walking Onset Date 10/06/21 M3 PT-IP Subjective Start: 10/07/21 11:31 Freq: NEEDED Status: Active Protocol: Document 10/07/21 09:15 AB (Rec: 10/07/21 11:49 AB [email or web address]) Subjective Physical Therapy Visit Type Type Initial Evaluation Visit Start Time 09:15 Visit Stop Time 10:03 Total Visit Minutes 48 Number of GAMBLING COUNSELLOR Visits 0 Physical Therapy Visit Comments Patient Comments agreeable to do PT Therapy Pain Assessment Pain When Pain Assessed At Rest Pain Present Pain Present Pain Reported Location left knee Intensity 2 Scale Used Numeric (0 - 10) Pain Management Techniques Distraction,Modification of Treatment,Re-positioning, Timing of Activity with Medications M4 PT-IP Mobility and Gait Start: 10/07/21 11:31 Freq: NEEDED Status: Active Protocol: Document 10/07/21 09:15 AB (Rec: 10/07/21 11:49 AB [email or web address]) PT-Bed Mobility Assessment Supine to Sit Supine to Sit Standby Assistance PT-Transfer Assessment Sit to and From Stand Sit to and from Stand Contact Guard Assistance, Minimal Assistance Equipment Transfer Assistive Device Gait Belt,Front Wheeled Walker Orthotic/Prosthetic Devices or Brace: No Transfers Transfer Technique ambulated Transfer Ability Level of Assist Contact Guard Assistance, Minimal Assistance,1 Person Assistance,Use of Upper Extremities Comments Mobility Comments pt supine in bed with O2 on and sat 90-92%. pt stated that he does not usually use O2 at home but has one if needed. O2 sat at room air decreases to ~ 81% and O2 put back on and O2 sat backt o ~90 %. pt completed supine to sit SBA. able to sit on EOB SBA. completed sit to stand min A and ambulated ~ 20 ft min A and cues for L quads contraction and upright posture. pt sat on chair. educated on quads contraction and LLE stability. pt completed sit to stand again CGA and ambulated ~ 30 ft using FWW CGA. pt agreed to sit up on chair. positioned on chair. call light and table placed within reach. Gait Assessment Gait Gait Assistance Required: Contact Guard Assist,Minimum Assistance Distance (Feet) 30 Able to Maintain Weight Bearing Status Yes During Gait Assistive Devices Assistive Device Gait Belt,Front Wheeled Walker Orthotic/Prosthetic Devices or Brace: No Gait Deviations General Gait Pattern Antalgic,Decreased Stride Length,Decreased Feet Clearance,Step-to Gait Factors Limiting Gait Function Factors Limiting Gait Function Decreased Activity Tolerance, Decreased Strength,Limited Range of Motion,Pain,Poor Balance,Poor Safety Awareness, Respiratory Distress PT-Balance Assessment Sitting Balance and Reactions Static Sitting Balance Ability Good Dynamic Sitting Balance Ability Good Standing Balance and Reactions Static Standing Balance Ability Fair Dynamic Standing Balance Ability Fair Device Used FWW M5 PT-IP Objective Assessments Start: 10/07/21 11:31 Freq: NEEDED Status: Active Protocol: Document 10/07/21 09:15 AB (Rec: 10/07/21 11:49 AB [email or web address]) Orientation Orientation/Cognition Level of Alertness Alert Orientation Name,Place,Situation Language Function Ability Hard of Hearing Safety Awareness Decreased Safety Awareness Memory Description No Deficits Noted Strength Lower Extremity Strength Assessment Left Impaired Knee 3+/5 Coordination Assessment Gross Coordination Gross Coordination WNL Muscle Tone Muscle Tone WNL Yes M6 PT-IP Treatment Start: 10/07/21 11:31 Freq: NEEDED Status: Active Protocol: Document 10/07/21 09:15 AB (Rec: 10/07/21 11:49 AB [email or web address]) Physical Therapy Treatment Education Education Provided Precautions,Weight Bearing Status,Post-Op Packet,Safety M7 PT-IP Assessment and Plan Start: 10/07/21 11:31 Freq: NEEDED Status: Active Protocol: Document 10/07/21 09:15 AB (Rec: 10/07/21 11:49 AB [email or web address]) PT Summary Assessment and Plan Potential Rehabilitation Potential Good Status of Condition at Evaluation Stable Summary Impairments Pain,ROM,Strength,Balance, Coordination,Sensation,Tone, Cognition,Bed Mobility, Transfers,Gait,Activity Tolerance Assessment Summary pt requiring initially min A for ambulation but able to ambulate using FWW CGA. pt will have his spouse to assist him at home. pt has outpt PT set up. Goals Bed Mobility Goal Independent Transfer Goal Independent,Front Wheeled Walker Gait Goal Independent,Front Wheel Walker Gait Distance 250 Days to Meet Goals 3 Frequency of Treatment Frequency Of Treatment Twice a Day Treatment Plan Physical Therapy Treatment Plan Bed Mobility Training,Transfer Training,Gait Training, Therapeutic Exercise,Balance Retraining,Post Op Education, Discharge Planning,Hot or Cold Pack,Neuromuscular Re-ed, Coordination Retraining,Manual Therapy Weight Bearing Status Weight Bearing Status Weight Bear as Tolerated Allowed Weight Bearing Amount (enter % LLE WBAT or #) (%) Recommendations To Nursing Amount of Assist Needed 1 Person Assist Discharge Recommendations PT Discharge Recommendations Home with Assistance, Outpatient PT Transportation Needs at Discharge Wheelchair/Cabulance
[2021-10-07 11:49] VITALS: PULSE 88; RESP 18; O2SAT 94
--- NOTE | 2021-10-07 12:23 | CM.IDA ---
Initial DCP Assessment Note Pt is a 76 yo male, resident of [facility] , now POD#1 from left knee surgery by Dr Torres PCP: Heidi Calzada Payer: [facility]/[employer] Reviewed chart, pt discussed in multidisciplinary rounds this morning. Therapy has cleared pt for return home w/family to assist and pt has planned for home, DC order from Ortho has already been initiated this morning. No needs expected from DC planning team although will remain available in case this changes today. JIAN Han
[2021-10-07] MEDS: OXYCODONE IR 5 MG TABLET PO (14:29)
--- NOTE | 2021-10-07 14:46 | PC.NURSE ---
Pt discharged at 1440, escorted off floor in wheelchair, accompanied by spouse and nursing staff. IV d/c'd, discharge teaching completed including wound care, new medications, and follow up appointments. Questions and concerns addressed. Pt left floor with all belongings.
== END 2021-10-07 14:47 | disposition home or self-care (01) ==
LOC: OR 09:35 → AC 09:35
PROVIDERS: PCP Physician Assistant; Referring Provider Orthopaedic Surgery; Visit Provider Orthopaedic Surgery
PROC: 0SRD0JZ Replacement of Left Knee Joint with Synthetic Substitute, Open Approach (ICD-10-PCS; CPT 27447; principal; 2021-10-06 11:00)
DX: M17.12 Unilateral primary osteoarthritis, left knee (principal); J44.9 Chronic obstructive pulmonary disease, unspecified; I48.91 Unspecified atrial fibrillation; Z79.01 Long term (current) use of anticoagulants
CPT/HCPCS: 27447; 36415; 73560; 82962; 85014; 85018; 94640; 94760; 97161; 97530; C1776; A9270; C1713; C9290; J0171; J0690; J2175; J2250; J2270; J2274; J2405; J2704; J3010; J7613

== ENCOUNTER 2021-10-13 21:24 | Inpatient (IN) | payer MEDICARE, OTHER, SELFPAY ==
[2021-10-06 15:40] VITALS: BMI 31.4
[2021-10-13 22:07] VITALS: BP 129/77; PULSE 103; RESP 20; TEMP 37.4; O2SAT 92
--- NOTE | 2021-10-13 22:07 | DI.RAD.S_ITS ---
PROCEDURE: XR CHEST 1V INDICATIONS: short of breath fever TECHNIQUE: One view of the chest was acquired. COMPARISON: [facility], , CHEST 2 VIEW, 08/25/2014, 17:13. FINDINGS: Surgical changes and devices: None. Lungs and pleura: Diffuse interstitial thickening bilaterally and increased peribronchial thickening in the left lung greater than right. There is asymmetrically elevated right hemidiaphragm and obscuration of the right lower lung. No pleural effusion or pneumothorax. Mediastinum: The heart is mildly enlarged. Mild central venous congestion. Normal aortic contour. Bones and chest wall: Severe degenerative changes in the left glenohumeral joint and mild changes in the right. IMPRESSION: 1. Chronic interstitial thickening with increased central venous congestion and bronchial wall thickening. This may be edema or bronchitis and/or interstitial pneumonia. 2. Mild cardiomegaly, stable. Consider CHF. Dictated by: Jil Torres M.D. on 10/13/2021 at 23:23 Approved by: Jil Torres M.D. on 10/13/2021 at 23:29
[2021-10-13 22:08] VITALS: PULSE 104; O2SAT 89
[2021-10-13 22:21] LABS: Basophils Absolute Auto 0 /uL (0-100); Basophils Percent Auto 0.5 % (0-2); Eosinophils Absolute Auto 200 /uL (0-450); Eosinophils Percent Auto 2.1 % (2-4); Hematocrit 35.8 % (41-53); Hemoglobin 11.1 g/dL (13.5-17.5); Lymphocytes Absolute Auto 1300 /uL (1100-4500); Lymphocytes Percent Auto 14.8 % (25-40); Mean Corpuscular HGB Conc 30.9 % (30-36); Mean Corpuscular Hemoglobin 25.3 PG (26-34); Mean Corpuscular Volume 81.6 fL (80-100); Monocytes Absolute Auto 700 /uL (0-900); Neutrophils Absolute Auto 6300 /uL (1500-7000); Neutrophils Percent Auto 74.6 % (50-75); Platelet Count 210 X10^3/uL (150-400); Red Blood Cell Count 4.38 X10^6/uL (4.5-5.9); Red Cell Distribution Width 25.9 % (11.6-14.8); White Blood Cell Count 8.5 X10^3/uL (4.5-11.0)
[2021-10-13 22:22] LABS: Lactate (Lactic Acid) 1.6 mmol/L (0.7-2.1)
[2021-10-13 22:23] LABS: Add Manual Diff / Slide Review SLIDE REVIEW; Alanine Aminotransferase 119 IU/L (<50); Albumin 3.5 g/dL (3.5-5.0); Albumin Globulin Ratio 0.9 (1.0-2.8); Alkaline Phosphatase 101 U/L (38-126); Aspartate Aminotransferase 88 IU/L (17-59); BUN Creatinine Ratio 29.8 (6-22); Bilirubin Total 2.8 mg/dL (0.2-1.3); Blood Urea Nitrogen 25 mg/dL (9-20); Calcium 8.4 mg/dL (8.4-10.2); Carbon Dioxide 30 mmol/L (22-32); Chloride 104 mmol/L (98-107); Creatine Kinase 56 U/L (55-170); Estimated Glomerular Filt Rate > 60 mL/min (>60); Glucose 155 mg/dL (80-110); HEMOLYSIS < 15 (0-50); Sodium 141 mmol/L (137-145); Total Protein 7.5 g/dL (6.3-8.2)
--- NOTE | 2021-10-13 22:29 | ED.FEVER ---
HPI - Fever General Chief Complaint: Fever Stated Complaint: lt knee infection s/p surgery Time Seen by Provider: 10/13/21 22:07 Source: patient Mode of arrival: Ambulatory History of Present Illness HPI Narrative: Patient is a 76-year-old male history of atrial fibrillation on Xarelto, COPD, peripheral vascular disease, chronic venous stasis as today with fever and left leg redness. He actually had a total knee arthroplasty on 10/06/2021 is he was discharged the following day. He has been going to physical therapy. In fact yesterday he was he was at physical therapy he scraped his lower leg with his cane he did not think anything of it. However that following night it blistered and today it is red hot swollen it continues to drain and sleep and he developed a fever. He is currently afebrile. He denies any painful or frequent urination. No cough or shortness of breath. He has no chest pain Related Data Home Medications Medication Instructions Recorded Confirmed metoprolol succinate 25 mg 12.5 mg PO DAILY 09/16/21 10/06/21 tablet,extended release 24 hr rosuvastatin 20 mg tablet 20 mg PO DAILY 09/30/21 10/06/21 Previous Rx's Medication Instructions Recorded fluticasone propionate 50 2 spray INTRANASAL QDAY #16 gm 08/31/21 mcg/actuation nasal spray,suspension albuterol sulfate 90 mcg/actuation 2 puff INHALATION Q4-6H PRN #8.5 g 09/16/21 aerosol inhaler (Ventolin HFA) ascorbic acid (vitamin C) 500 mg 500 mg PO DAILY #90 tab 09/16/21 tablet ferrous sulfate 325 mg (65 mg 325 mg PO DAILY #90 tab 09/16/21 iron) tablet metformin 500 mg 24 hr 500 mg PO BID #60 tab 09/16/21 tablet,extended release fluticasone furoate 100 1 inh INHALATION DAILY #30 ea 09/30/21 mcg-vilanterol 25 mcg/dose inhalation powder (Breo Ellipta) acetaminophen 500 mg capsule 500 mg PO Q4H PRN #90 cap MDD Max 10/07/21 3000 mg per day docusate sodium 100 mg capsule 100 mg PO BID PRN #20 cap 10/07/21 oxycodone 5 mg tablet 5 mg PO Q3HR PRN #42 tab 10/07/21 rivaroxaban 20 mg tablet (Xarelto) 20 mg PO DAILY #30 tab 10/07/21 Allergies Allergy/AdvReac Type Severity Reaction Status Date / Time No Known Drug Allergies Allergy Verified 10/06/21 09:23 Review of Systems Review of Systems Narrative: GENERAL: +fever HEENT: Denies sinus pain, ear pain, sore throat, difficulty swallowing, neck pain RESPIRATORY: Denies dyspnea, cough, wheezing, hemoptysis, sputum. CARDIOVASCULAR: Denies chest pain, palpitations, orthopnea, edema GASTROINTESTINAL: Denies nausea, vomiting, abdominal pain, diarrhea, constipation, melena. : Denies dysuria, frequency, incontinence, hematuria, urinary retention, flank pain. MUSCULOSKELETAL: Denies weakness, joint pain, or bony pain SKIN: Left leg red weeping draining recent surgery NEUROLOGIC: Denies weakness, dizziness, headache, numbness, change in speech, confusion PSYCHIATRIC: No concerning psychosocial issues. 12 point review of systems is negative except for those stated above and HPI Patient History Medical History Afib (~2017) Anesthesia Anticoagulant long-term use (~2017) CAD (coronary artery disease) COPD (chronic obstructive pulmonary disease) Current every day smoker ILD (interstitial lung disease) Normal esophagogastroduodenoscopy (EGD) (2020) PNA (pneumonia) Psoriasis Surgical History History of arthroplasty of right knee (08/23/16) History of cardiac cath History of surgery Hx of appendectomy Hx of colonoscopy Hx of heart artery stent (03/29/21) Hx of hernia repair Hx of skin graft Social History household members: spouse Smoking Status: Former smoker alcohol intake: current Smoking Status: Former smoker alcohol intake frequency: 0-2 drinks per day Substance Use Type: does not use Exam Initial Vital Signs Initial Vital Signs: Vital Signs Temperature 99.3 F 10/13/21 22:07 Pulse Rate 103 H 10/13/21 22:07 Respiratory Rate 20 10/13/21 22:07 Blood Pressure 129/77 10/13/21 22:07 Pulse Oximetry 92 10/13/21 22:07 GENERAL: Alert 76-year-old and in no acute distress. HEENT: Head atraumatic,EOMI, pupils reactive, face symmetric, moist mucous membranes CARDIOVASCULAR: Regular rate and rhythm without murmurs, rubs or gallops. RESPIRATORY: Breath sounds equal bilaterally, no wheezes rales or rhonchi. ABDOMEN: Soft, nontender. Normoactive bowel sounds all 4 quadrants. No guarding or rebound. EXTREMITIES: Normal range of motion, no clubbing or edema. Neurovascularly intact NEUROLOGICAL: Alert and oriented x4.Normal gait and speech. SKIN: Left lower leg erythematous blisters drainage weeping swollen incision over left knee bandage is in place there is some a mild swelling no significant erythema Course Orders Ordered: ED Orders 10/13/21 22:00 Blood Culture Stat Complete Blood Count AUTO DIFF Stat Comprehensive Metabolic Panel Stat Lactate (Lactic Acid) Stat NT-proBNP (BNP-Adult 18+) Stat Procalcitonin Stat Troponin & CK Cardiac Panel Stat 10/13/21 22:07 XR chest 1V Stat 10/14/21 02:46 COVID19 -Nasal RAPID/Pre-Proc Stat Ictotest Urine Stat Urinalysis and Microscopic Stat Discontinued Medications Acetaminophen (Acetaminophen 325 Mg Tablet) 650 mg PO NOW ONE Stop: 10/13/21 23:18 Last Admin: 10/13/21 23:25 Dose: 650 mg Documented by: ALFONZO Diphenhydramine HCl (Diphenhydramine 25 Mg Tablet) 25 mg PO NOW ONE Stop: 10/13/21 23:18 Last Admin: 10/13/21 23:26 Dose: 25 mg Documented by: ALFONZO Ceftriaxone Sodium 2,000 mg/ (Sodium Chloride) 100 mls @ 200 mls/hr IV NOW ONE Stop: 10/13/21 22:45 Last Infusion: 10/14/21 00:14 Dose: 0 mls/hr Documented by: Admin: 10/13/21 23:14 Dose: 200 mls/hr Documented by: ALFONZO Oxycodone HCl (Oxycodone Ir 5 Mg Tablet) 5 mg PO NOW ONE Stop: 10/13/21 23:18 Last Admin: 10/13/21 23:26 Dose: 5 mg Documented by: ALFONZO Oxycodone HCl (Oxycodone Ir 5 Mg Tablet) 5 mg PO NOW ONE Stop: 10/14/21 02:39 Last Admin: 04/28/22 02:44 Dose: 5 mg Documented by: ALFONZO Vital Signs Vital signs: Vital Signs - 8 hr 10/13/21 22:07 10/13/21 22:08 10/13/21 22:30 Temperature 99.3 F Pulse Rate 103 H 104 H 107 H Respiratory Rate 20 Blood Pressure 129/77 Pulse Oximetry 92 89 L 92 10/13/21 23:00 10/13/21 23:30 10/14/21 00:03 Temperature Pulse Rate 102 H 100 H 105 H Respiratory Rate Blood Pressure Pulse Oximetry 93 94 83 L 10/14/21 00:30 10/14/21 00:40 10/14/21 01:00 Temperature Pulse Rate 98 H 98 H 99 H Respiratory Rate Blood Pressure 122/75 Pulse Oximetry 96 96 94 10/14/21 01:30 10/14/21 02:00 10/14/21 02:30 Temperature Pulse Rate 99 H 98 H 97 H Respiratory Rate Blood Pressure 122/76 Pulse Oximetry 94 95 95 MDM - Fever Lab Data Result diagrams: 10/13/21 22:00 10/13/21 22:00 Labs: Lab Results 10/13/21 10/13/21 10/13/21 Range/Units 22:00 22:00 22:00 WBC 8.5 (4.5-11.0) X10^3/uL RBC 4.38 L (4.5-5.9) X10^6/uL Hgb 11.1 L (13.5-17.5) g/dL Hct 35.8 L (41-53) % MCV 81.6 (80-100) fL MCH 25.3 L (26-34) PG MCHC 30.9 (30-36) % RDW 25.9 H (11.6-14.8) % Plt Count 210 (150-400) X10^3/uL Neut % (Auto) 74.6 (50-75) % Lymph % (Auto) 14.8 L (25-40) % [place] % (Auto) 8.0 (3-14) % Eos % (Auto) 2.1 (2-4) % Baso % (Auto) 0.5 (0-2) % Neut # (Auto) 6300 (8082-5588) /uL Lymph # (Auto) 1300 (1770-4306) /uL [place] # (Auto) 700 (0-900) /uL Eos # (Auto) 200 (0-450) /uL Baso # (Auto) 0 (0-100) /uL RBC Morphology See below Polychromasia 1+ H Anisocytosis 3+ H Sodium 141 (137-145) mmol/L Potassium 4.0 (3.4-5.1) mmol/L Chloride 104 (98-107) mmol/L Carbon Dioxide 30 (22-32) mmol/L BUN 25 H (9-20) mg/dL Creatinine 0.84 (0.66-1.25) mg/dL Estimated GFR > 60 (>60) mL/min BUN/Creatinine Ratio 29.8 H (6-22) Glucose 155 H (80-110) mg/dL Lactate 1.6 (0.7-2.1) mmol/L Calcium 8.4 (8.4-10.2) mg/dL Total Bilirubin 2.8 H (0.2-1.3) mg/dL AST 88 H (17-59) IU/L ALT 119 H (<50) IU/L Alkaline Phosphatase 101 (38-126) U/L Total Creatine Kinase 56 (55-170) U/L CK-MB (CK-2) TNP CK-MB (CK-2) Rel Index TNP Troponin I 0.025 (0.01-0.034) ng/mL NT-Pro-B Natriuret Pep 1500 H (<450) pg/mL Total Protein 7.5 (6.3-8.2) g/dL Albumin 3.5 (3.5-5.0) g/dL Globulin 4.0 (1.7-4.1) g/dL Albumin/Globulin Ratio 0.9 L (1.0-2.8) Procalcitonin 0.08 (<0.5) ng/mL Urine Color Urine Appearance Urine pH (4.5-8.0) Ur Specific [place] (1.000-1.035) Urine Protein (Negative) Urine Glucose (UA) (Negative) g/dL Urine Ketones (NEGATIVE) Urine Occult Blood (Negative) Urine Nitrate (Negative) Urine Bilirubin (NEGATIVE) Ur Bilirubin Confirm (Negative) Urine Urobilinogen (0.2) E.U./dL Ur Leukocyte Esterase (NEGATIVE) Urine RBC (0-5/HPF) Urine WBC (0-5/HPF) Urine Bacteria (None) Urine Mucus (Negative) Ur Culture Indicated? SARS-CoV-2 (PCR) (Negative) 10/14/21 10/14/21 Range/Units 02:46 02:46 WBC (4.5-11.0) X10^3/uL RBC (4.5-5.9) X10^6/uL Hgb (13.5-17.5) g/dL Hct (41-53) % MCV (80-100) fL MCH (26-34) PG MCHC (30-36) % RDW (11.6-14.8) % Plt Count (150-400) X10^3/uL Neut % (Auto) (50-75) % Lymph % (Auto) (25-40) % [place] % (Auto) (3-14) % Eos % (Auto) (2-4) % Baso % (Auto) (0-2) % Neut # (Auto) (4124-5100) /uL Lymph # (Auto) (7981-8430) /uL [place] # (Auto) (0-900) /uL Eos # (Auto) (0-450) /uL Baso # (Auto) (0-100) /uL RBC Morphology Polychromasia Anisocytosis Sodium (137-145) mmol/L Potassium (3.4-5.1) mmol/L Chloride (98-107) mmol/L Carbon Dioxide (22-32) mmol/L BUN (9-20) mg/dL Creatinine (0.66-1.25) mg/dL Estimated GFR (>60) mL/min BUN/Creatinine Ratio (6-22) Glucose (80-110) mg/dL Lactate (0.7-2.1) mmol/L Calcium (8.4-10.2) mg/dL Total Bilirubin (0.2-1.3) mg/dL AST (17-59) IU/L ALT (<50) IU/L Alkaline Phosphatase (38-126) U/L Total Creatine Kinase (55-170) U/L CK-MB (CK-2) CK-MB (CK-2) Rel Index Troponin I (0.01-0.034) ng/mL NT-Pro-B Natriuret Pep (<450) pg/mL Total Protein (6.3-8.2) g/dL Albumin (3.5-5.0) g/dL Globulin (1.7-4.1) g/dL Albumin/Globulin Ratio (1.0-2.8) Procalcitonin (<0.5) ng/mL Urine Color Yellow Urine Appearance Clear Urine pH 5.0 (4.5-8.0) Ur Specific [place] 1.025 (1.000-1.035) Urine Protein 2+ H (Negative) Urine Glucose (UA) Trace H (Negative) g/dL Urine Ketones Negative (NEGATIVE) Urine Occult Blood 1+ H (Negative) Urine Nitrate Negative (Negative) Urine Bilirubin 1+ H (NEGATIVE) Ur Bilirubin Confirm Negative (Negative) Urine Urobilinogen 2.0 H (0.2) E.U./dL Ur Leukocyte Esterase Negative (NEGATIVE) Urine RBC 0-1/hpf (0-5/HPF) Urine WBC None seen (0-5/HPF) Urine Bacteria None seen (None) Urine Mucus 1+ H (Negative) Ur Culture Indicated? Cult not indicated SARS-CoV-2 (PCR) Negative (Negative) Imaging Data Chest x-ray: Radiologist's Impression: Signed Patient: Sebastien Erickson MR#: [id number] : 1945 Acct:[id number] Age/Sex: 76 / M Date of Service: 10/13/21 Loc: Accession Number: [id number] ?? Procedure: XR chest 1V Ordering Provider: Raquel Garcia D.O. PROCEDURE:? XR CHEST 1V ? INDICATIONS:? short of breath fever ? TECHNIQUE:? One view of the chest was acquired.? ? COMPARISON:? [facility], , CHEST 2 VIEW, 08/25/2014, 17:13. ? FINDINGS:? ? Surgical changes and devices:? None.? ? Lungs and pleura:? Diffuse interstitial thickening bilaterally and increased peribronchial thickening in the left lung greater than right.? There is asymmetrically elevated right hemidiaphragm and obscuration of the right lower lung.? No pleural effusion or pneumothorax. ? Mediastinum:? The heart is mildly enlarged.? Mild central venous congestion.? Normal aortic contour. ? Bones and chest wall:? Severe degenerative changes in the left glenohumeral joint and mild changes in the right. ? IMPRESSION:? ? 1. Chronic interstitial thickening with increased central venous congestion and bronchial wall thickening.? This may be edema or bronchitis and/or interstitial pneumonia. ? 2. Mild cardiomegaly, stable.? Consider CHF.? ? ? Dictated by: Jil Torres M.D. on 10/13/2021 at 23:23 ? ? Approved by: Jil Torres M.D. on 10/13/2021 at 23:29 ? US - DVT: Radiologist's Impression: Negative MDM Narrative Medical decision making narrative: The patient has significant swelling and blister of the right lower leg. He had fever at home. Blood work overall is reassuring. His symptoms are most concerning for a cellulitis. The patient is on Xarelto although his Xarelto was held preoperatively. He says he has started taking now. Ultrasound is negative for DVT. He has significant drainage in oozing from his leg. He has an elevated BNP of 1500 on chest x-ray to suggest cardiomegaly however patient is not having any exacerbation. He is not having any chest pain or shortness of breath. Patient symptoms are consistent with a left leg lower cellulitis. I do not think this is postoperative infection of his knee. Dr. Diaz updated on patient's symptoms and test results agrees probably lower leg cellulitis recommends admitting to hospitalist and he will consult in the morning Dr. Crockett admits patient Discharge Plan Departure Patient Disposition: Admitted as Observation Clinical Impression: Cellulitis Qualifiers: Site of cellulitis: extremity Site of cellulitis of extremity: lower extremity Laterality: left Qualified Code(s): L03.116 - Cellulitis of left lower limb Admit Date/Time: 10/14/21 02:52 Admit Provider: Victor Manuel Crockett
[2021-10-13 22:30] VITALS: PULSE 107; O2SAT 92
[2021-10-13 22:36] LABS: NT-proBNP (BNP-Adult 18+) 1500 pg/mL (<450); Troponin I 0.025 ng/mL (0.01-0.034)
[2021-10-13 22:40] LABS: Procalcitonin 0.08 ng/mL (<0.5)
[2021-10-13 23:00] VITALS: PULSE 102; O2SAT 93
[2021-10-13] MEDS: cefTRIAXone 2,000 MG in SODIUM CHLORIDE 0.9% 100 ML 200 ML IV (23:14)
[2021-10-13] MEDS: ACETAMINOPHEN 325 MG TABLET 650 MG PO (23:25)
[2021-10-13] MEDS: diphenhydrAMINE 25 MG TABLET PO (23:26)
[2021-10-13] MEDS: OXYCODONE IR 5 MG TABLET PO (23:26)
[2021-10-13 23:30] VITALS: PULSE 100; O2SAT 94
[2021-10-14] VITALS (18 sets, daily range): BP systolic 111–126; BP diastolic 67–80; PULSE 95–105; RESP 18–19; TEMP 36.8–37.1; O2SAT 83–96; BMI 32.8
[2021-10-14] MEDS: OXYCODONE IR 5 MG TABLET PO ×5 (02:44→22:12)
[2021-10-14 02:58] LABS: Appearance Urine UA CLEAR; Bilirubin Urine UA 1+ (NEGATIVE); Color Urine UA YELLOW; Glucose Urine UA TRACE g/dL (Negative); Ketones Urine UA NEGATIVE (NEGATIVE); Leukocyte Esterase Urine UA NEGATIVE (NEGATIVE); Nitrite Urine UA NEGATIVE (Negative); Occult Blood Urine UA 1+ (Negative); Protein Urine UA 2+ (Negative); Specific Gravity Urine UA 1.025 (1.000-1.035)
[2021-10-14 03:00] LABS: Ictotest Urine Negative (Negative)
[2021-10-14 03:04] LABS: COVID19 -Nasal RAPID Negative (Negative)
[2021-10-14 03:12] LABS: Bacteria Urine None Seen; Culture Indicated Urine Cult Not Indicated; Mucus Urine 1+ (Negative); RBC Urine 0-1/HPF (0-5/HPF); WBC Urine None Seen (0-5/HPF)
[2021-10-14 03:47] LABS: Anisocytosis 3+; Polychromasia 1+
--- NOTE | 2021-10-14 04:13 | DI.US.S_ITS ---
PROCEDURE: US PERIPH VENOUS LOW EXTREM LT INDICATIONS: POST OP EDEMA TECHNIQUE: Real-time imaging, as well as color and pulse Doppler interrogation, were performed of the lower extremity deep veins from the inguinal ligament to the popliteal fossa. COMPARISON: None. FINDINGS: The common femoral, femoral and popliteal veins are normally compressible, and free of intraluminal thrombus. Color and pulse Doppler demonstrate normal phasic intraluminal flow. There is normal augmentation response to distal compression maneuver. IMPRESSION: No evidence of deep vein thrombosis involving the left lower extremity. Dictated by: Deedee Fernandez MD, PhD on 10/14/2021 at 7:55 Approved by: Deedee Fernandez MD, PhD on 10/14/2021 at 7:55
--- NOTE | 2021-10-14 07:40 | P.HP_ITS ---
History of Present Illness History of Present Illness Date Patient Seen: 10/14/21 Time Patient Seen: 05:00 Chief complaint: lt knee infection s/p surgery Narrative: Mr. Erickson is a 76M with PMH afib on xarelto, COPD, PVD, chronic venous stasis who presents with fevers, left leg blister, and leg swelling and erythema. He was admitted recently with left knee osteoarthrits and underwent elective left knee repair. He did have some expected swelling after surgery and he said he had pain, but it was improving. Two days ago he was working with PT and scratched at his leg with his cane. He then noted a blister subsequently develop in his lower part of his leg, it became draining and weeping. He noted subjective fever and then redness and his leg so came in to the hospital. In the ED workup was done, vitals were notable for a temperature for 99.3, heart rate 103. Labs notable WBC 8.5, hgb 11.1, plts 210. Creatinine 0.84. Lactate 1.6. Bili 2.8, AST 88, ALT 119. Trop 0.025, BNP 1500. UA shows negative leuk esterase, nitrate. Chest xray shows chronic interstitial thickening, mild cardiomegaly. He was given IV antibiotics. Family history: patient denies any significant family history Patient History Medical History Afib (~2017) Anesthesia Anticoagulant long-term use (~2017) CAD (coronary artery disease) COPD (chronic obstructive pulmonary disease) Current every day smoker ILD (interstitial lung disease) Normal esophagogastroduodenoscopy (EGD) (2020) PNA (pneumonia) Psoriasis Surgical History History of arthroplasty of right knee (08/23/16) History of cardiac cath History of surgery Hx of appendectomy Hx of colonoscopy Hx of heart artery stent (03/29/21) Hx of hernia repair Hx of skin graft Family & Social History Social History: household members spouse Tobacco & Substance use: Tobacco type cigarettes Smoking Status Former smoker alcohol intake current alcohol intake frequency 0-2 drinks per day Substance Use Type does not use Meds Home Medications and Allergies Home Medications Medication Instructions Recorded Confirmed Type fluticasone propionate 50 2 spray INTRANASAL QDAY #16 gm 08/31/21 09/28/21 Rx mcg/actuation nasal spray,suspension albuterol sulfate 90 mcg/actuation 2 puff INHALATION Q4-6H PRN #8.5 g 09/16/21 10/06/21 Rx aerosol inhaler (Ventolin HFA) ascorbic acid (vitamin C) 500 mg 500 mg PO DAILY #90 tab 09/16/21 09/28/21 Rx tablet ferrous sulfate 325 mg (65 mg 325 mg PO DAILY #90 tab 09/16/21 10/06/21 Rx iron) tablet metformin 500 mg 24 hr 500 mg PO BID #60 tab 09/16/21 10/06/21 Rx tablet,extended release metoprolol succinate 25 mg 12.5 mg PO DAILY 09/16/21 10/06/21 History tablet,extended release 24 hr fluticasone furoate 100 1 inh INHALATION DAILY #30 ea 09/30/21 10/06/21 Rx mcg-vilanterol 25 mcg/dose inhalation powder (Breo Ellipta) rosuvastatin 20 mg tablet 20 mg PO DAILY 09/30/21 10/06/21 History acetaminophen 500 mg capsule 500 mg PO Q4H PRN #90 cap MDD Max 10/07/21 Rx 3000 mg per day docusate sodium 100 mg capsule 100 mg PO BID PRN #20 cap 10/07/21 Rx oxycodone 5 mg tablet 5 mg PO Q3HR PRN #42 tab 10/07/21 Rx rivaroxaban 20 mg tablet (Xarelto) 20 mg PO DAILY #30 tab 10/07/21 Rx Allergies Allergy/AdvReac Type Severity Reaction Status Date / Time No Known Drug Allergies Allergy Verified 10/06/21 09:23 Review of Systems Review of Systems Narrative: 14 systems reviewed and negative aside from what is noted in HPI Exam Vital Signs (past 8 hours): - 10/14/21 00:03 10/14/21 00:30 10/14/21 00:40 Pulse Rate 105 H 98 H 98 H Blood Pressure 122/75 Pulse Oximetry 83 L 96 96 10/14/21 01:00 10/14/21 01:30 10/14/21 02:00 Pulse Rate 99 H 99 H 98 H Blood Pressure 122/76 Pulse Oximetry 94 94 95 10/14/21 02:30 10/14/21 03:00 10/14/21 03:40 Pulse Rate 97 H 98 H 100 H Blood Pressure Pulse Oximetry 95 95 91 10/14/21 04:00 10/14/21 04:30 10/14/21 05:00 Pulse Rate 100 H 97 H 97 H Blood Pressure 126/79 Pulse Oximetry 95 90 L 92 10/14/21 05:30 10/14/21 05:39 Pulse Rate 99 H 99 H Blood Pressure 121/80 Pulse Oximetry 92 91 Oxygen Delivery Method Room Air Narrative Exam Narrative: GEN: no acute distress HEENT: moist mucous membranes, PERRL NECK: trachea midline, no JVD CV: regular rate and rhythm, no murmurs PULM: clear bilaterally, no wheezes, rhonchi, rales ABD: soft, nontender, nondistended, no organomegaly, normal bowel sounds EXT: warm and well perfused, left leg mahoney erythema, blister draining serosanguinous fluid of leg leg, left knee range of motion intact, knee bandaged NEURO: awake, alert, no focal deficits Objective Labs Result Diagrams: 10/13/21 22:00 10/13/21 22:00 Labs: Laboratory Results - last 24 hr 10/13/21 10/13/21 10/13/21 22:00 22:00 22:00 WBC 8.5 RBC 4.38 L Hgb 11.1 L Hct 35.8 L MCV 81.6 MCH 25.3 L MCHC 30.9 RDW 25.9 H Plt Count 210 Neut % (Auto) 74.6 Lymph % (Auto) 14.8 L [place] % (Auto) 8.0 Eos % (Auto) 2.1 Baso % (Auto) 0.5 Neut # (Auto) 6300 Lymph # (Auto) 1300 [place] # (Auto) 700 Eos # (Auto) 200 Baso # (Auto) 0 RBC Morphology See below Polychromasia 1+ H Anisocytosis 3+ H Sodium 141 Potassium 4.0 Chloride 104 Carbon Dioxide 30 BUN 25 H Creatinine 0.84 Estimated GFR > 60 BUN/Creatinine Ratio 29.8 H Glucose 155 H Lactate 1.6 Calcium 8.4 Total Bilirubin 2.8 H AST 88 H ALT 119 H Alkaline Phosphatase 101 Total Creatine Kinase 56 CK-MB (CK-2) TNP CK-MB (CK-2) Rel Index TNP Troponin I 0.025 NT-Pro-B Natriuret Pep 1500 H Total Protein 7.5 Albumin 3.5 Globulin 4.0 Albumin/Globulin Ratio 0.9 L Procalcitonin 0.08 Urine Color Urine Appearance Urine pH Ur Specific [place] Urine Protein Urine Glucose (UA) Urine Ketones Urine Occult Blood Urine Nitrate Urine Bilirubin Ur Bilirubin Confirm Urine Urobilinogen Ur Leukocyte Esterase Urine RBC Urine WBC Urine Bacteria Urine Mucus Ur Culture Indicated? SARS-CoV-2 (PCR) 10/14/21 10/14/21 02:46 02:46 WBC RBC Hgb Hct MCV MCH MCHC RDW Plt Count Neut % (Auto) Lymph % (Auto) [place] % (Auto) Eos % (Auto) Baso % (Auto) Neut # (Auto) Lymph # (Auto) [place] # (Auto) Eos # (Auto) Baso # (Auto) RBC Morphology Polychromasia Anisocytosis Sodium Potassium Chloride Carbon Dioxide BUN Creatinine Estimated GFR BUN/Creatinine Ratio Glucose Lactate Calcium Total Bilirubin AST ALT Alkaline Phosphatase Total Creatine Kinase CK-MB (CK-2) CK-MB (CK-2) Rel Index Troponin I NT-Pro-B Natriuret Pep Total Protein Albumin Globulin Albumin/Globulin Ratio Procalcitonin Urine Color Yellow Urine Appearance Clear Urine pH 5.0 Ur Specific [place] 1.025 Urine Protein 2+ H Urine Glucose (UA) Trace H Urine Ketones Negative Urine Occult Blood 1+ H Urine Nitrate Negative Urine Bilirubin 1+ H Ur Bilirubin Confirm Negative Urine Urobilinogen 2.0 H Ur Leukocyte Esterase Negative Urine RBC 0-1/hpf Urine WBC None seen Urine Bacteria None seen Urine Mucus 1+ H Ur Culture Indicated? Cult not indicated SARS-CoV-2 (PCR) Negative Assessment & Plan Assessment & Plan narrative: Mr. Erickson is a 76M with PMH afib, DM, COPD with recent left knee elective rep air who presents with subjective fevers, redness consistent with cellulitis. 1. Acute cellulitis -IV vancomycin -ortho consulted to evaluate further given recent knee surgery -doubt there is any joint involvement -follow up cultures -no evidence of sepsis -oral oxycodone for pain control -PT consult 2. Afib -xarelto on hold for now pending ortho consult -continue metoprolol 3. Diabetes -hold metformin -insulin sliding scale 4. COPD with ILD -PRN duonebs -not in exacerbation now CODE: FUll Proxy: Klever Erickson, I have utilized all available resources to reconcile the patient's home medi cations Time Spent With Patient Critical Care time: I spent a total of [] minutes of critical care time on this patient's care today; this time is exclusive of procedural time. Quality MIPS - Admit I confirm the patient?s Advance Care Plan is present, Code status is documented, Surrogate decision maker is in patient?s record [If Yes, STOP here]: Yes
[2021-10-14] MEDS: ACETAMINOPHEN 325 MG TABLET 650 MG PO ×3 (08:27→19:37)
--- NOTE | 2021-10-14 09:05 | PC.NURSE ---
edema to left lower ext. 3+ pitting edema.
--- NOTE | 2021-10-14 10:32 | PC.NURSE ---
late entry 0745, dr mcclellan in room, took off dressing. left no orders rec'd.
[2021-10-14] MEDS: METOPROLOL ER 25 MG TABLET 12.5 MG PO (10:57)
[2021-10-14] MEDS: VANCOMYCIN 1,500 MG/300 ML PIGGYBACK 200 MG IV ×2 (10:57→22:13)
--- NOTE | 2021-10-14 11:37 | PC.NURSE ---
called dr. Singh, pt wanted to know why he is ordered insulin and not his metformin, dr singh states that he wouldn't be ordering his metformin.
--- NOTE | 2021-10-14 15:38 | PT-IP ANOTE ---
reviewed EMR and checked on pt in the ED. Pt awaiting bed on acute floor. Pt refused to do PT eval today and stated that he is not going to get up. c/o LLE soreness and is adamant that he is not going to move or get up today. informed pt that PT will check again tomorrow.
--- NOTE | 2021-10-14 17:36 | PM.CN ---
History of Present Illness Consult details Date Patient Seen: 10/14/21 Time Patient Seen: 17:36 Chief complaint: lt knee infection s/p surgery Reason for consult: cellulitis LLE Requesting provider: Raquel Garcia Narrative: Mr. Erickson is a 76M with PMH of chronic venous stasis who presents with fevers, left leg blister, and leg swelling and erythema. He had a left total knee arthroplasty by Dr Torres at on 10/06/2021. He did well following surgery and was discharged on POD# 1. He did have some expected swelling after surgery and he said he had pain, but it was improving. Two days ago he was working with PT and scratched at his leg with his cane. He then noted a blister subsequently develop in his lower part of his leg, it became draining and weeping. He noted subjective fever and then redness and his leg so came in to the hospital. In the ED workup was done, vitals were notable for a temperature for 99.3, heart rate 103. Labs notable WBC 8.5, hgb 11.1, plts 210. Creatinine 0.84. Lactate 1.6. Bili 2.8, AST 88, ALT 119. Trop 0.025, BNP 1500. UA shows negative leuk esterase, nitrate. Chest xray shows chronic interstitial thickening, mild cardiomegaly. He was given IV antibiotics. Dr Diaz was consulted, and Dr Torres was notified due to the patient's recent surgery. Meds Home Medications and Allergies Home Medications Medication Instructions Recorded Confirmed Type fluticasone propionate 50 2 spray INTRANASAL QDAY #16 gm 08/31/21 09/28/21 Rx mcg/actuation nasal spray,suspension albuterol sulfate 90 mcg/actuation 2 puff INHALATION Q4-6H PRN #8.5 g 09/16/21 10/06/21 Rx aerosol inhaler (Ventolin HFA) ascorbic acid (vitamin C) 500 mg 500 mg PO DAILY #90 tab 09/16/21 09/28/21 Rx tablet ferrous sulfate 325 mg (65 mg 325 mg PO DAILY #90 tab 09/16/21 10/06/21 Rx iron) tablet metformin 500 mg 24 hr 500 mg PO BID #60 tab 09/16/21 10/06/21 Rx tablet,extended release metoprolol succinate 25 mg 12.5 mg PO DAILY 09/16/21 10/06/21 History tablet,extended release 24 hr fluticasone furoate 100 1 inh INHALATION DAILY #30 ea 09/30/21 10/06/21 Rx mcg-vilanterol 25 mcg/dose inhalation powder (Breo Ellipta) rosuvastatin 20 mg tablet 20 mg PO DAILY 09/30/21 10/06/21 History acetaminophen 500 mg capsule 500 mg PO Q4H PRN #90 cap MDD Max 10/07/21 Rx 3000 mg per day docusate sodium 100 mg capsule 100 mg PO BID PRN #20 cap 10/07/21 Rx oxycodone 5 mg tablet 5 mg PO Q3HR PRN #42 tab 10/07/21 Rx rivaroxaban 20 mg tablet (Xarelto) 20 mg PO DAILY #30 tab 10/07/21 Rx Allergies Allergy/AdvReac Type Severity Reaction Status Date / Time No Known Drug Allergies Allergy Verified 10/06/21 09:23 Review of Systems Constitutional Constitutional: Reports system reviewed and no additional complaints, except as documented Exam Vital Signs (past 8 hours): - 10/14/21 10:57 10/14/21 11:19 Temperature 98.8 F Pulse Rate 99 H 95 H Respiratory Rate 18 Blood Pressure 122/73 Blood Pressure [Right Arm] 111/67 Pulse Oximetry 95 Oxygen Delivery Method Nasal Cannula Oxygen Flow Rate 2 Narrative Exam Narrative: Patient was also evaluated by Dr Torres this morning. There is erythema and weeping from the calf; there is no evidence of wound breakdown or infection of the knee. 5/5 strength in hip flexors, quadriceps, hamstrings, DF, PF, EHL. Sensation to light touch intact throughout LLE. Objective Labs Result Diagrams: 10/13/21 22:00 10/13/21 22:00 Labs: Laboratory Results - last 24 hr 10/13/21 10/13/21 10/13/21 22:00 22:00 22:00 WBC 8.5 RBC 4.38 L Hgb 11.1 L Hct 35.8 L MCV 81.6 MCH 25.3 L MCHC 30.9 RDW 25.9 H Plt Count 210 Neut % (Auto) 74.6 Lymph % (Auto) 14.8 L Day % (Auto) 8.0 Eos % (Auto) 2.1 Baso % (Auto) 0.5 Neut # (Auto) 6300 Lymph # (Auto) 1300 Day # (Auto) 700 Eos # (Auto) 200 Baso # (Auto) 0 RBC Morphology See below Polychromasia 1+ H Anisocytosis 3+ H Sodium 141 Potassium 4.0 Chloride 104 Carbon Dioxide 30 BUN 25 H Creatinine 0.84 Estimated GFR > 60 BUN/Creatinine Ratio 29.8 H Glucose 155 H Lactate 1.6 Calcium 8.4 Total Bilirubin 2.8 H AST 88 H ALT 119 H Alkaline Phosphatase 101 Total Creatine Kinase 56 CK-MB (CK-2) TNP CK-MB (CK-2) Rel Index TNP Troponin I 0.025 NT-Pro-B Natriuret Pep 1500 H Total Protein 7.5 Albumin 3.5 Globulin 4.0 Albumin/Globulin Ratio 0.9 L Procalcitonin 0.08 Urine Color Urine Appearance Urine pH Ur Specific [place] Urine Protein Urine Glucose (UA) Urine Ketones Urine Occult Blood Urine Nitrate Urine Bilirubin Ur Bilirubin Confirm Urine Urobilinogen Ur Leukocyte Esterase Urine RBC Urine WBC Urine Bacteria Urine Mucus Ur Culture Indicated? SARS-CoV-2 (PCR) 10/14/21 10/14/21 02:46 02:46 WBC RBC Hgb Hct MCV MCH MCHC RDW Plt Count Neut % (Auto) Lymph % (Auto) Day % (Auto) Eos % (Auto) Baso % (Auto) Neut # (Auto) Lymph # (Auto) Day # (Auto) Eos # (Auto) Baso # (Auto) RBC Morphology Polychromasia Anisocytosis Sodium Potassium Chloride Carbon Dioxide BUN Creatinine Estimated GFR BUN/Creatinine Ratio Glucose Lactate Calcium Total Bilirubin AST ALT Alkaline Phosphatase Total Creatine Kinase CK-MB (CK-2) CK-MB (CK-2) Rel Index Troponin I NT-Pro-B Natriuret Pep Total Protein Albumin Globulin Albumin/Globulin Ratio Procalcitonin Urine Color Yellow Urine Appearance Clear Urine pH 5.0 Ur Specific [place] 1.025 Urine Protein 2+ H Urine Glucose (UA) Trace H Urine Ketones Negative Urine Occult Blood 1+ H Urine Nitrate Negative Urine Bilirubin 1+ H Ur Bilirubin Confirm Negative Urine Urobilinogen 2.0 H Ur Leukocyte Esterase Negative Urine RBC 0-1/hpf Urine WBC None seen Urine Bacteria None seen Urine Mucus 1+ H Ur Culture Indicated? Cult not indicated SARS-CoV-2 (PCR) Negative [facility] Medical History (Updated 10/14/21 @ 17:43 by Katy Gomez PA-C) Afib (~2017) Anesthesia Anticoagulant long-term use (~2017) CAD (coronary artery disease) COPD (chronic obstructive pulmonary disease) Current every day smoker ILD (interstitial lung disease) Normal esophagogastroduodenoscopy (EGD) (2020) PNA (pneumonia) Psoriasis Venous stasis of lower extremity Surgical History History of arthroplasty of right knee (08/23/16) History of cardiac cath History of surgery Hx of appendectomy Hx of colonoscopy Hx of heart artery stent (03/29/21) Hx of hernia repair Hx of skin graft Social History household members: spouse Tobacco & Substance Use Smoking Status: Former smoker alcohol intake: current Assessment & Plan Assessment and plan (1) Cellulitis: Qualifiers: Laterality: left Site of cellulitis: extremity Site of cellulitis of extremity: lower extremity Qualified Code(s): L03.116 - Cellulitis of left lower limb Status: Acute Plan: Antibiotics per hospitalist service. (2) Venous stasis of lower extremity: Status: Acute (3) Hx of total knee arthroplasty: Status: Acute Plan: Place new aquacel dressing. Will continue to follow to ensure there is no progression to wound infection. Case reviewed and plan discussed with Dr Torres. Time Spent With Patient Critical Care time: I spent a total of [] minutes of critical care time on this patient's care today; this time is exclusive of procedural time.
--- NOTE | 2021-10-14 19:42 | PC.NURSE ---
Pt arrived from ED at 1830 A&OX3. VSS, afebrile, placed on 2 LNC as he was 86 % 02 saturation on RA. LLE +3-4 swelling edema, LR foot +2 pitting edema. R leg draining moderate yellow drainage. Pt reported pain 4-5/10 in R knee medicated with PRN pain medications. Settled into room. Admission assessment completed. Endorsed to oncoming RN.
[2021-10-14] MEDS: ZOLPIDEM 5 MG TABLET 10 MG PO (23:05)
--- NOTE | 2021-10-14 23:28 | PC.NURSE ---
Pt was asking for something to help him sleep, Dr. Estes was notify, orders received for ambien 10 mg po as needed for sleep. Home medication list updated. Pt states he hasn't had a BM in a couple of days.
[2021-10-14] MEDS: SODIUM CHLORIDE 0.9% 250 ML 21 ML IV (23:44)
[2021-10-15] VITALS (11 sets, daily range): BP systolic 107–125; BP diastolic 64–86; PULSE 80–105; RESP 18–21; TEMP 36.6–37.3; O2SAT 92–99
[2021-10-15] MEDS: OXYCODONE IR 5 MG TABLET PO ×4 (04:34→18:55)
[2021-10-15] MEDS: ACETAMINOPHEN 325 MG TABLET 650 MG PO ×3 (04:34→18:54)
[2021-10-15 05:23] LABS: Add Manual Diff / Slide Review NO; Basophils Absolute Auto 0 /uL (0-100); Basophils Percent Auto 0.6 % (0-2); Eosinophils Absolute Auto 200 /uL (0-450); Eosinophils Percent Auto 3.3 % (2-4); Hematocrit 34.4 % (41-53); Hemoglobin 10.5 g/dL (13.5-17.5); Lymphocytes Absolute Auto 1100 /uL (1100-4500); Lymphocytes Percent Auto 14.4 % (25-40); Mean Corpuscular HGB Conc 30.6 % (30-36); Mean Corpuscular Hemoglobin 25.4 PG (26-34); Mean Corpuscular Volume 82.8 fL (80-100); Monocytes Absolute Auto 600 /uL (0-900); Monocytes Percent Auto 8.5 % (3-14); Neutrophils Absolute Auto 5400 /uL (1500-7000); Neutrophils Percent Auto 73.2 % (50-75); Platelet Count 218 X10^3/uL (150-400); Red Blood Cell Count 4.16 X10^6/uL (4.5-5.9); Red Cell Distribution Width 25.7 % (11.6-14.8); White Blood Cell Count 7.4 X10^3/uL (4.5-11.0)
[2021-10-15 05:32] LABS: Alanine Aminotransferase 111 IU/L (<50); Albumin 3.2 g/dL (3.5-5.0); Albumin Globulin Ratio 0.8 (1.0-2.8); Alkaline Phosphatase 85 U/L (38-126); Aspartate Aminotransferase 68 IU/L (17-59); BUN Creatinine Ratio 29.3 (6-22); Blood Urea Nitrogen 24 mg/dL (9-20); Calcium 8.3 mg/dL (8.4-10.2); Carbon Dioxide 35 mmol/L (22-32); Chloride 102 mmol/L (98-107); Estimated Glomerular Filt Rate > 60 mL/min (>60); Globulin 3.8 g/dL (1.7-4.1); Glucose 119 mg/dL (80-110); HEMOLYSIS < 15 (0-50); Potassium 4.2 mmol/L (3.4-5.1); Sodium 141 mmol/L (137-145)
[2021-10-15 06:35] LABS: Anisocytosis 3+; Polychromasia 1+
--- NOTE | 2021-10-15 08:41 | PM.PN.1 ---
Subjective Subjective Date Patient Seen: 10/15/21 Time Patient Seen: 08:41 Interval history: Sitting up in bed, complaining of hunger and wanting to go home. Per chart note, did not work with PT yesterday due to pain. Exam Vital Signs (past 8 hours): - 10/15/21 02:00 10/15/21 04:44 10/15/21 07:40 Temperature 98.2 F 99.2 F 97.9 F Pulse Rate 80 104 H 101 H Respiratory Rate 19 18 18 Blood Pressure 117/77 125/86 115/73 Pulse Oximetry 99 92 94 Oxygen Delivery Method Nasal Cannula Oxygen Flow Rate 2 Narrative Exam Narrative: 4/5 hip flexors, quadriceps, hamstrings; 5/5 DF, PF, EHL on left. Sensation to light touch intact throughout LLE. Blood cultures have been negative, pt continues on IV vanco. Objective Labs Result Diagrams: 10/15/21 04:30 10/15/21 04:30 Labs: Laboratory Results - last 24 hr 10/15/21 10/15/21 04:30 04:30 WBC 7.4 RBC 4.16 L Hgb 10.5 L Hct 34.4 L MCV 82.8 MCH 25.4 L MCHC 30.6 RDW 25.7 H Plt Count 218 Neut % (Auto) 73.2 Lymph % (Auto) 14.4 L [place] % (Auto) 8.5 Eos % (Auto) 3.3 Baso % (Auto) 0.6 Neut # (Auto) 5400 Lymph # (Auto) 1100 [place] # (Auto) 600 Eos # (Auto) 200 Baso # (Auto) 0 RBC Morphology See below Polychromasia 1+ H Anisocytosis 3+ H Sodium 141 Potassium 4.2 Chloride 102 Carbon Dioxide 35 H BUN 24 H Creatinine 0.82 Estimated GFR > 60 BUN/Creatinine Ratio 29.3 H Glucose 119 H Calcium 8.3 L Total Bilirubin 2.0 H AST 68 H ALT 111 H Alkaline Phosphatase 85 Total Protein 7.0 Albumin 3.2 L Globulin 3.8 Albumin/Globulin Ratio 0.8 L PFSH Medical History (Updated 10/14/21 @ 17:43 by Katy Gomez PA-C) Afib (~2017) Anesthesia Anticoagulant long-term use (~2018) CAD (coronary artery disease) COPD (chronic obstructive pulmonary disease) Current every day smoker ILD (interstitial lung disease) Normal esophagogastroduodenoscopy (EGD) (2020) PNA (pneumonia) Psoriasis Venous stasis of lower extremity Surgical History History of arthroplasty of right knee (08/23/16) History of cardiac cath History of surgery Hx of appendectomy Hx of colonoscopy Hx of heart artery stent (03/29/21) Hx of hernia repair Hx of skin graft Social History household members: spouse Smoking Status: Former smoker alcohol intake: current Assessment & Plan Assessment and plan (1) Hx of total knee arthroplasty: Status: Acute Plan: No evidence of wound infection. Aquacel dressing replaced. Restarted Xarelto for VTE prophylaxis. PT, WBAT on LLE. F/u in office as scheduled on 10/21/2021. Will continue to follow while pt in hospital. (2) Venous stasis of lower extremity: Status: Acute (3) Cellulitis: Qualifiers: Laterality: left Site of cellulitis: extremity Site of cellulitis of extremity: lower extremity Qualified Code(s): L03.116 - Cellulitis of left lower limb Status: Acute Time Spent With Patient Critical Care time: I spent a total of [] minutes of critical care time on this patient's care today; this time is exclusive of procedural time. Quality VTE Deep Vein Thrombosis/Pulmonary Embolism Present on Admission: No
[2021-10-15] MEDS: RIVAROXABAN 10 MG TABLET 20 MG PO (09:23)
[2021-10-15] MEDS: METOPROLOL ER 25 MG TABLET 12.5 MG PO (09:23)
[2021-10-15] MEDS: SODIUM CHLORIDE 0.9% FLUSH 10 ML IV ×2 (09:41→20:52)
--- NOTE | 2021-10-15 11:02 | PT.IIE ---
Current Diagnoses Other specified disorders of veins (10/14/21) Cellulitis of left lower limb (10/14/21) Presence of unspecified artificial knee joint (10/14/21) Medical History (Last Updated 10/14/21 @ 17:43 by Katy Gomez PA-C) Afib (~2017) Anesthesia Anticoagulant long-term use (~2017) CAD (coronary artery disease) COPD (chronic obstructive pulmonary disease) Current every day smoker ILD (interstitial lung disease) Normal esophagogastroduodenoscopy (EGD) (2020) PNA (pneumonia) Psoriasis Venous stasis of lower extremity Physical Therapy Inpatient Evaluation/Re-Eval M1 PT/OT-IP Prior Functional Status Start: 10/15/21 12:44 Freq: NEEDED Status: Active Protocol: Document 10/15/21 11:02 AB (Rec: 10/15/21 12:56 [facility] Review Prior Functional Status Medical History Reviewed Yes Communication able to make needs known Mobility and Gait pt stated that he is modified independent with all mobilities and ambulation using FWW; stated that he was starting to transition towards SPC Social History Household Members spouse Living Arrangements House Number of Floors (Floors) 3 or More Floors Number of Stairs To Enter/Railing? pt will stay on main level of the house without steps to enter Home Environment High Toilet,Walk in Shower Home Equipment Front Wheel Walker,Straight Cane,Shower Seat with Backrest ,Grab Bars In Shower M2 PT-IP Current Condition Start: 10/15/21 12:44 Freq: NEEDED Status: Active Protocol: Document 10/15/21 11:02 AB (Rec: 10/15/21 12:56 AB [id number]) Physical Therapy Current Condition Current Condition Evaluation Date 10/15/21 Treatment Diagnosis LLE cellulitis; s/p L TKA (); difficulty in walking Onset Date 10/14/21 M3 PT-IP Subjective Start: 10/15/21 12:44 Freq: NEEDED Status: Active Protocol: Document 10/15/21 11:02 AB (Rec: 10/15/21 12:56 AB [email or web address]) Subjective Physical Therapy Visit Type Type Initial Evaluation Visit Start Time 11:02 Visit Stop Time 11:35 Total Visit Minutes 33 Number of ACADEMIC SUPPORT DIRECTOR Visits 0 Physical Therapy Visit Comments Patient Comments agreed to do PT M4 PT-IP Mobility and Gait Start: 10/15/21 12:44 Freq: NEEDED Status: Active Protocol: Document 10/15/21 11:02 AB (Rec: 10/15/21 12:56 AB [email or web address]) PT-Bed Mobility Assessment Supine to Sit Supine to Sit Standby Assistance,Head of Bed Elevated Sit to Supine Sit to Supine Standby Assistance PT-Transfer Assessment Sit to and From Stand Sit to and from Stand Minimal Assistance,1 Person Assistance,Use of Upper Extremities Equipment Transfer Assistive Device Gait Belt,Front Wheeled Walker Orthotic/Prosthetic Devices or Brace: No Comments Mobility Comments O2 with 2L/min O2: 94%, at room air : 93% at rest. completed supine to sit SBA and cues. presents with difficulty completing task. completed sit to stand min A and cues. pt tends to pull on FWW to stand. cued for techniques and safety. ambulated in room using FWW min A. presensts with antalgic gait and pt tends to move FWW too far away from him . (+) SOB. o2 sat at room air after mobility 74%. O2 put back on and sat increased to 88%. pt continues to have (+) SOB. pt refused to it on the chair. completed sit to supine SBA. positioned on the bed. call light and table placed within reach. Gait Assessment Gait Gait Assistance Required: Minimum Assistance Distance (Feet) 20 Able to Maintain Weight Bearing Status Yes During Gait Assistive Devices Assistive Device Gait Belt,Front Wheeled Walker Orthotic/Prosthetic Devices or Brace: No Gait Deviations General Gait Pattern Antalgic,Decreased Stride Length,Decreased Feet Clearance Factors Limiting Gait Function Factors Limiting Gait Function Decreased Activity Tolerance, Decreased Sensation,Decreased Strength,Difficulty Following Directions,Limited Range of Motion,Pain,Poor Balance,Poor Safety Awareness,Respiratory Distress PT-Balance Assessment Sitting Balance and Reactions Static Sitting Balance Ability Good Dynamic Sitting Balance Ability Good Standing Balance and Reactions Static Standing Balance Ability Fair Dynamic Standing Balance Ability Fair Device Used FWW M5 PT-IP Objective Assessments Start: 10/15/21 12:44 Freq: NEEDED Status: Active Protocol: Document 10/15/21 11:02 AB (Rec: 10/15/21 12:56 AB [email or web address]) Orientation Orientation/Cognition Level of Alertness Alert Orientation Name,Day of Week,Situation Language Function Ability No Deficits Noted Safety Awareness Decreased Safety Awareness Memory Description Short Term Impaired Gross Range of Motion Lower Extremity ROM Assessment Left Impaired Impairments L knee flexion: ~ 40 deg Strength Lower Extremity Strength Assessment Left Impaired Hip 4-/5 Knee 3+/5 Coordination Assessment Gross Coordination Gross Coordination WNL Sensation Assessment Sensation Gross Sensation WNL Muscle Tone Muscle Tone WNL Yes M6 PT-IP Treatment Start: 10/15/21 12:44 Freq: NEEDED Status: Active Protocol: Document 10/15/21 11:02 AB (Rec: 10/15/21 12:56 AB [id number]) Physical Therapy Treatment Education Education Provided Precautions,Weight Bearing Status,Safety M7 PT-IP Assessment and Plan Start: 10/15/21 12:44 Freq: NEEDED Status: Active Protocol: Document 10/15/21 11:02 AB (Rec: 10/15/21 12:56 AB [id number]) PT Summary Assessment and Plan Potential Rehabilitation Potential Fair Status of Condition at Evaluation Evolving Summary Impairments Pain,ROM,Strength,Balance, Coordination,Sensation,Tone, Cognition,Bed Mobility, Transfers,Gait,Activity Tolerance Assessment Summary pt requiring min A with mobility and has decrease activity tolerance with (+) SOB and decrease O2 sat with mobility. pt with recent LTKA last 10/06/21 and now in the hospital for LLE cellulitis. pt has his spouse to assist him at home. will continue to assess progress. will conduct caregiver training when appropriate. Goals Bed Mobility Goal Independent Transfer Goal Independent,Front Wheeled Walker Gait Goal Independent,Front Wheel Walker Gait Distance 200 Days to Meet Goals 10 Frequency of Treatment Frequency Of Treatment Once a Day Treatment Plan Physical Therapy Treatment Plan Bed Mobility Training,Transfer Training,Gait Training, Therapeutic Exercise,Balance Retraining,Post Op Education, Discharge Planning,Hot or Cold Pack,Neuromuscular Re-ed, Coordination Retraining,Manual Therapy Recommendations To Nursing Amount of Assist Needed 1 Person Assist Discharge Recommendations PT Discharge Recommendations Home with Assistance,Home Health Transportation Needs at Discharge Private Vehicle
[2021-10-15] MEDS: VANCOMYCIN 1,500 MG/300 ML PIGGYBACK 200 MG IV ×2 (11:05→22:08)
--- NOTE | 2021-10-15 14:57 | CM.IDA ---
Initial DCP Assessment Note Pt is a 76 yo male, resident [facility], arrives with fevers, left leg blister, and leg swelling, found to have LE cellulitis; recently discharged POD#[address] Torres PCP: Heidi Calzada Payer: [facility]/[employer] Reviewed chart, pt discussed in multidisciplinary rounds this morning. Therapy has cleared pt for return home w/family to assist upon medical clearance, HH recommended. Patient eager to return home, will likely require an additional 24-48 hrs of IV abx before cleared for return home on po meds. Attempted assessment and patient busy; will reattempt tomorrow to review DCP Plan: DC home w/family is anticipated, will r/o need for HH ([facility]) closer to DC JIAN Han Discharge Planning/Care Management CM Discharge Assessment Start: 10/15/21 14:54 Freq: Status: Active Protocol: Document 10/15/21 14:54 ASPEN (Rec: 10/15/21 14:56 ASPEN [id number]) Discharge Planning Assessment Assigned Room Service Server JIAN Hopson DPOA/Assigned Designee Name Klever Erickson, spouse Contact Information [phone] Advance Directives? Yes Advance Directives on File No History Provided By Patient,Medical Record Has Patient been admitted in last 30 Yes days? Comment Recent LTKA now with LLE cellulitis Prior Living Arrangements House Household Members spouse Type of transportation used prior to Drives own vehicle admit Independent with ADL's Yes: Mod Indp per PT Is patient alert and oriented? Yes Needs Assistance With Home Chores / Shopping Patient/Family Preference Home with Home Health Barriers to Discharge No Comment Home w/family, likely po abx, r/o need for HH Discharge Plan Home with Home Health Transportation Arrangement Family Referrals Initiated Additional Comment HH if patient and family request Medicare Choice List Provided Yes, [facility]
--- NOTE | 2021-10-15 17:30 | PM.PN.1 ---
Subjective Subjective Interval history: The patient endorses improved pain of his left lower extremity cellulitis. He reports having venous insufficiency for many years. He reports improvement of the skin redness around the infection. Denies fever/chills overnight. Exam Vital Signs (past 8 hours): - 10/15/21 10:00 10/15/21 11:30 10/15/21 15:00 Temperature 98.4 F Pulse Rate 90 99 H Respiratory Rate 18 Blood Pressure 110/70 114/72 Pulse Oximetry 94 96 Oxygen Delivery Method Room Air Oxygen Flow Rate 2 Narrative Exam Narrative: GEN: no acute distress HEENT: moist mucous membranes NECK: trachea midline, no JVD CV: regular rate and rhythm, no murmurs PULM: clear bilaterally, no wheezes, rhonchi, rales ABD: soft, nontender, nondistended, normal bowel sounds EXT: warm and well perfused, left leg mahoney erythema, blister draining serosanguinous fluid of leg leg, left knee range of motion intact, knee bandaged NEURO: awake, alert, oriented Objective Labs Result Diagrams: 10/15/21 04:30 10/15/21 04:30 Labs: Laboratory Results - last 24 hr 10/15/21 10/15/21 04:30 04:30 WBC 7.4 RBC 4.16 L Hgb 10.5 L Hct 34.4 L MCV 82.8 MCH 25.4 L MCHC 30.6 RDW 25.7 H Plt Count 218 Neut % (Auto) 73.2 Lymph % (Auto) 14.4 L [place] % (Auto) 8.5 Eos % (Auto) 3.3 Baso % (Auto) 0.6 Neut # (Auto) 5400 Lymph # (Auto) 1100 [place] # (Auto) 600 Eos # (Auto) 200 Baso # (Auto) 0 RBC Morphology See below Polychromasia 1+ H Anisocytosis 3+ H Sodium 141 Potassium 4.2 Chloride 102 Carbon Dioxide 35 H BUN 24 H Creatinine 0.82 Estimated GFR > 60 BUN/Creatinine Ratio 29.3 H Glucose 119 H Calcium 8.3 L Total Bilirubin 2.0 H AST 68 H ALT 111 H Alkaline Phosphatase 85 Total Protein 7.0 Albumin 3.2 L Globulin 3.8 Albumin/Globulin Ratio 0.8 L PFSH Medical History (Updated 10/14/21 @ 17:43 by Katy Gomez PA-C) Afib (~2018) Anesthesia Anticoagulant long-term use (~2017) CAD (coronary artery disease) COPD (chronic obstructive pulmonary disease) Current every day smoker ILD (interstitial lung disease) Normal esophagogastroduodenoscopy (EGD) (2020) PNA (pneumonia) Psoriasis Venous stasis of lower extremity Surgical History History of arthroplasty of right knee (08/23/16) History of cardiac cath History of surgery Hx of appendectomy Hx of colonoscopy Hx of heart artery stent (03/29/21) Hx of hernia repair Hx of skin graft Social History household members: spouse Smoking Status: Former smoker alcohol intake: current Assessment & Plan Assessment & Plan narrative: Mr. Erickson is a 76M with PMH a fib, DM II, COPD not on home oxygen, with recent elective left knee arthroplasty who presents with subjective fevers, redness consistent with cellulitis. 1. Acute cellulitis, left lower extremity, anterior mahoney - IV vancomycin on-board from October 14, 2021 - Given recent left knee arthroplasty, there does not appear to be left knee joint involvement clinically 2. Atrial fibrillation on Xarelto, stable 3. Non-insulin dependent DM II - Insulin sliding scale inpatient 4. COPD with ILD, not on home oxygen, stable VTE prophylaxis: Xarelto, as above CODE: FUll Proxy: Klever Erickson, I have utilized all available resources to obtain, update, or confirm the patient's home medications. Time Spent With Patient Critical Care time: I spent a total of [] minutes of critical care time on this patient's care today; this time is exclusive of procedural time. Quality VTE Deep Vein Thrombosis/Pulmonary Embolism Present on Admission: No MIPS - Admit I confirm the patient?s Advance Care Plan is present, Code status is documented, Surrogate decision maker is in patient?s record [If Yes, STOP here]: Yes
[2021-10-16] VITALS (7 sets, daily range): BP systolic 122–135; BP diastolic 74–89; PULSE 88–104; RESP 18; TEMP 36.7–37; O2SAT 92–97
[2021-10-16] MEDS: ACETAMINOPHEN 325 MG TABLET 650 MG PO ×4 (00:17→23:07)
[2021-10-16] MEDS: OXYCODONE IR 5 MG TABLET PO ×4 (00:17→23:07)
[2021-10-16] MEDS: ZOLPIDEM 5 MG TABLET 10 MG PO ×2 (00:17→23:08)
--- NOTE | 2021-10-16 07:41 | PM.PN.1 ---
Subjective Subjective Date Patient Seen: 10/16/21 Interval history: He tells me that he lives on the [facility]. He is quite concerned about transportation there and back as regarding his leg. He has apparently had some low oxygenation per PT. He has hemosiderin discoloration of both ankles. The honeycomb dressing on the left knee appears intact. There is thin yellowish drainage on the left leg dressing. The white blood count is 7.4 today. Exam Vital Signs (past 8 hours): - 10/16/21 06:42 Temperature 98.6 F Pulse Rate 90 Respiratory Rate 18 Blood Pressure 135/74 Pulse Oximetry 94 Oxygen Delivery Method Room Air Oxygen Flow Rate 2 Narrative Exam Narrative: He is alert and oriented x3. He says he is unable to look at or assess his own leg and does not know if he is in pain or if the infection is improving or spreading. Heart is regular rate and rhythm without murmur Lungs are clear to auscultation bilaterally Right leg is no edema. Skin hemosiderin discoloration of both lower legs. The left knee has a honeycomb dressing over the recent knee replacement incision. This is intact. The left leg has a thick white Kerlix dressing which dependently is soaked in yellowish fluid. Objective Labs Result Diagrams: 10/15/21 04:30 10/15/21 04:30 [facility] Medical History (Updated 10/15/21 @ 21:33 by Lorene Galvan) Afib (~2017) Anticoagulant long-term use (~2017) CAD (coronary artery disease) Chicken pox COPD (chronic obstructive pulmonary disease) (~2016) Current every day smoker Hearing loss ILD (interstitial lung disease) Measles Mumps Normal esophagogastroduodenoscopy (EGD) (2020) PNA (pneumonia) Psoriasis Shoulder pain (~2006) Venous stasis of lower extremity Wears glasses Surgical History (Updated 10/15/21 @ 21:33 by Lorene Galvan) Anesthesia History of arthroplasty of right knee (08/23/16) History of cardiac cath History of surgery Hx of appendectomy (~1957) Hx of colonoscopy Hx of heart artery stent (03/29/21) Hx of hernia repair Hx of skin graft (~1957) Family History (Updated 10/15/21 @ 21:35 by Lorene Galvan) Brother Cancer Grandfather Accident Grandmother Cancer Grandfather History of heart disease Grandmother Cancer Social History household members: spouse Smoking Status: Former smoker alcohol intake: current Assessment & Plan Assessment & Plan narrative: Mr. Erickson is a 76M with PMH a fib, DM II, COPD not on home oxygen, with recent elective left knee arthroplasty who presents with subjective fevers, redness consistent with cellulitis. 1. Acute cellulitis, left lower extremity, anterior mahoney - improving but still draining copious amounts of serous fluid. ?- IV vancomycin treatment starting onApril 2021 ?- Given recent left knee arthroplasty, there does not appear to be left knee joint involvement clinically - appreciate orthopedics following closely. Discussed with orthopedic PA and Dr. Schneider today. 2. Atrial fibrillation on Xarelto, stable 3. Non-insulin dependent DM II ?- Insulin sliding scale inpatient 4. COPD with ILD, not on home oxygen, stable VTE prophylaxis: Xarelto, as above CODE: FUll Proxy: Klever Erickson, He very well might need fpc facility placement. PT and OT are working with him. Time Spent With Patient Critical Care time: I spent a total of [] minutes of critical care time on this patient's care today; this time is exclusive of procedural time. Quality VTE Deep Vein Thrombosis/Pulmonary Embolism Present on Admission: No
[2021-10-16] MEDS: METOPROLOL ER 25 MG TABLET 12.5 MG PO (08:52)
[2021-10-16] MEDS: SODIUM CHLORIDE 0.9% FLUSH 10 ML IV ×2 (08:53→20:08)
[2021-10-16] MEDS: RIVAROXABAN 10 MG TABLET 20 MG PO (08:53)
--- NOTE | 2021-10-16 09:27 | P.PN_ITS ---
Subjective Subjective Date Patient Seen: 10/16/21 Time Patient Seen: 09:27 Interval history: Pt sitting up in bed, continues to be anxious to go home. Recommended to pt that he stay until leg ceases to drain. IV vanco continues. Exam Vital Signs (past 8 hours): - 10/16/21 06:42 10/16/21 08:52 Temperature 98.6 F Pulse Rate 90 104 H Respiratory Rate 18 Blood Pressure 135/74 135/74 Pulse Oximetry 94 Oxygen Delivery Method Room Air Oxygen Flow Rate 2 Narrative Exam Narrative: Aquacel dressing CDI. There does not appear to be any involvement of cellulitis about the knee joint. 10/21 DF, PF, EHL. Objective Labs Result Diagrams: 10/15/21 04:30 10/15/21 04:30 [facility] Medical History (Updated 10/15/21 @ 21:33 by Lorene Galvan) Afib (~2017) Anticoagulant long-term use (~2017) CAD (coronary artery disease) Chicken pox COPD (chronic obstructive pulmonary disease) (~2016) Current every day smoker Hearing loss ILD (interstitial lung disease) Measles Mumps Normal esophagogastroduodenoscopy (EGD) (2020) PNA (pneumonia) Psoriasis Shoulder pain (~2006) Venous stasis of lower extremity Wears glasses Surgical History (Updated 10/15/21 @ 21:33 by Lorene Galvan) Anesthesia History of arthroplasty of right knee (08/23/16) History of cardiac cath History of surgery Hx of appendectomy (~1957) Hx of colonoscopy Hx of heart artery stent (03/29/21) Hx of hernia repair Hx of skin graft (~1957) Family History (Updated 10/15/21 @ 21:35 by Lorene Galvan) Brother Cancer Grandfather Accident Grandmother Cancer Grandfather History of heart disease Grandmother Cancer Social History household members: spouse Smoking Status: Former smoker alcohol intake: current Assessment & Plan Assessment and plan (1) Hx of total knee arthroplasty: Status: Acute Plan: No evidence of wound infection.? AXarelto for VTE prophylaxis.? PT, WBAT on LL E.? F/u in office as scheduled on 10/21/2021.? Will continue to follow while pt in hospital. (2) Cellulitis: Qualifiers: Laterality: left Site of cellulitis: extremity Site of cellulitis of extremity: lower extremity Qualified Code(s): L03.116 - Cellulitis of left lower limb Status: Acute (3) Venous stasis of lower extremity: Status: Acute Time Spent With Patient Critical Care time: I spent a total of [] minutes of critical care time on this patient's care today; this time is exclusive of procedural time. Quality VTE Deep Vein Thrombosis/Pulmonary Embolism Present on Admission: No
--- NOTE | 2021-10-16 09:58 | PT.IPTN ---
Current Diagnoses Other specified disorders of veins (10/15/21) Cellulitis of left lower limb (10/15/21) Presence of unspecified artificial knee joint (10/15/21) Physical Therapy Treatment Note M2 PT-IP Current Condition Start: 10/15/21 12:44 Freq: NEEDED Status: Active Protocol: Document 10/15/21 11:02 AB (Rec: 10/15/21 12:56 AB [email or web address]) Physical Therapy Current Condition Current Condition Evaluation Date 10/15/21 Treatment Diagnosis LLE cellulitis; s/p L TKA (); difficulty in walking Onset Date 10/14/21 M3 PT-IP Subjective Start: 10/15/21 12:44 Freq: NEEDED Status: Active Protocol: Document 10/16/21 09:58 AB (Rec: 10/16/21 11:02 AB [email or web address]) Subjective Physical Therapy Visit Type Type Treatment Note Visit Start Time 09:58 Visit Stop Time 10:15 Total Visit Minutes 17 Number of RN LABOR DELIVERY Visits 0 Physical Therapy Visit Comments Patient Comments agreed to do PT Therapy Pain Assessment Pain When Pain Assessed At Rest Pain Present Pain Present Pain Reported Location left knee Intensity 8 Scale Used Numeric (0 - 10) Pain Management Techniques Distraction,Elevation, Modification of Treatment,Re- positioning,Timing of Activity with Medications M4 PT-IP Mobility and Gait Start: 10/15/21 12:44 Freq: NEEDED Status: Active Protocol: Document 10/16/21 09:58 AB (Rec: 10/16/21 11:02 AB [email or web address]) PT-Bed Mobility Assessment Supine to Sit Supine to Sit Standby Assistance PT-Transfer Assessment Sit to and From Stand Sit to and from Stand Moderate Assistance,1 Person Assistance,Use of Upper Extremities Equipment Transfer Assistive Device Gait Belt,Front Wheeled Walker Orthotic/Prosthetic Devices or Brace: No Comments Mobility Comments pt c/o increase pain today on LLE and stated that he did not sleep well last night. completed supine to sit SBA with HOB elevated and bed rail used. completed sit to stand x 2 attempts mod A and cues. c/o increase LLE pain. ambulated in room using FWW ~ 10 ft mod A and cues. pt having increase difficulty in moving today with c/o increase pain. pt requested to go back to bed. completed sit to supine SBA. positioned pt in bed. asked pt if pt can do LE exercises. pt refused at this time but stated that he will do it later by himself. educated pt on LE exercises that he has to do. Pt understood. call light and table placed within reach. Gait Assessment Gait Gait Assistance Required: Moderate Assistance,1 Person Assist Distance (Feet) 10 Able to Maintain Weight Bearing Status Yes During Gait Assistive Devices Assistive Device Gait Belt,Front Wheeled Walker Orthotic/Prosthetic Devices or Brace: No Gait Deviations General Gait Pattern Antalgic,Decreased Stride Length,Decreased Feet Clearance Factors Limiting Gait Function Factors Limiting Gait Function Decreased Activity Tolerance, Decreased Sensation,Decreased Strength,Limited Range of Motion,Pain,Poor Balance,Poor Safety Awareness M5 PT-IP Objective Assessments Start: 10/15/21 12:44 Freq: NEEDED Status: Active Protocol: Document 10/15/21 11:02 AB (Rec: 10/15/21 12:[facility] Orientation Orientation/Cognition Level of Alertness Alert Orientation Name,Day of Week,Situation Language Function Ability No Deficits Noted Safety Awareness Decreased Safety Awareness Memory Description Short Term Impaired Gross Range of Motion Lower Extremity ROM Assessment Left Impaired Impairments L knee flexion: ~ 40 deg Strength Lower Extremity Strength Assessment Left Impaired Hip 4-/5 Knee 3+/5 Coordination Assessment Gross Coordination Gross Coordination WNL Sensation Assessment Sensation Gross Sensation WNL Muscle Tone Muscle Tone WNL Yes M6 PT-IP Treatment Start: 10/15/21 12:44 Freq: NEEDED Status: Active Protocol: Document 10/16/21 09:58 AB (Rec: 10/16/21 11:02 [facility]) Physical Therapy Treatment Education Education Provided Safety M7 PT-IP Assessment and Plan Start: 10/15/21 12:44 Freq: NEEDED Status: Active Protocol: Document 10/16/21 09:58 AB (Rec: 10/16/21 11:02 [facility] PT Summary Assessment and Plan Potential Rehabilitation Potential Fair Summary Impairments Pain,ROM,Strength,Balance, Coordination,Sensation,Tone, Cognition,Bed Mobility, Transfers,Gait,Activity Tolerance Progress Towards Goals Slow Progress due to Pain,Slow Progress due to Medical Issues,Slow Progress due to Activity Tolerance Assessment Summary pt requiring increase assistance today with mobility and has increase c/o LLE pain . d/c plan depending on progress but pt may require SNF rehab at this time. will continue to assess for safe d/ c plan. Goals Bed Mobility Goal Independent Transfer Goal Independent,Front Wheeled Walker Gait Goal Independent,Front Wheel Walker Gait Distance 200 Days to Meet Goals 10 Frequency of Treatment Frequency Of Treatment Once a Day Treatment Plan Physical Therapy Treatment Plan Bed Mobility Training,Transfer Training,Gait Training, Therapeutic Exercise,Balance Retraining,Post Op Education, Discharge Planning,Hot or Cold Pack,Neuromuscular Re-ed, Coordination Retraining,Manual Therapy Recommendations To Nursing Amount of Assist Needed 1 Person Assist Discharge Recommendations PT Discharge Recommendations Home with 09/01 Assist Available,Home Health,SNF Rehab,Home vs SNF Transportation Needs at Discharge Private Vehicle
[2021-10-16 11:02] LABS: Vancomycin Trough 9.8 ug/mL (10-20)
[2021-10-16] MEDS: VANCOMYCIN TROUGH 1 REQUEST MISC (11:20)
[2021-10-16] MEDS: VANCOMYCIN 1,500 MG in SODIUM CHLORIDE 0.9% 500 ML 333.333 MG IV (11:20)
[2021-10-16] MEDS: VANCOMYCIN 1,000 MG/200 ML PIGGYBACK 200 MG IV (18:33)
--- NOTE | 2021-10-16 23:25 | PC.NURSE ---
Patient is alert and oriented. Breath sounds diminished at bases but CTA. Denies SOB but states his O2 sats drop when he gets out of bed but does not feel SOB with activity. Currently on oxygen at 2L/min per NC with sat of 97%. HRR. Denies nausea. BT present and abdomen is soft. Denies dysuria, frequency or urgency with urination; voiding per urinal. Is able to move self in bed. Complains of aching pain in left knee and sharp pain in left lower leg with severity of 6/10 so medicated with oxycodone + tylenol. Aquacel dressing to left knee is CDI. Open area on left lower lateral leg with sloughing skin and yellow drainage; erythemic but receding from markings. Has left leg elevated on pillows and foot of bed also elevated to keep leg above heart level. Edema present in bilateral LE. Fall risk score is high and bed alarm is activated.
[2021-10-17] MEDS: VANCOMYCIN 1,000 MG/200 ML PIGGYBACK 200 MG IV ×2 (02:58→10:29)
[2021-10-17] MEDS: SODIUM CHLORIDE 0.9% FLUSH 10 ML IV ×2 (02:59→08:21)
[2021-10-17 07:00] VITALS: BP 129/84; PULSE 105; RESP 18; TEMP 36.6; O2SAT 96
--- NOTE | 2021-10-17 08:02 | PM.PN.1 ---
Subjective Subjective Date Patient Seen: 10/17/21 Time Patient Seen: 08:02 Interval history: He had mild pain over night. He did get up and spent some time in the chair, spent most of yesterday with his leg elevated. He is able to weightbear on the left leg. Exam Vital Signs (past 8 hours): - 10/17/21 07:00 Temperature 97.8 F Pulse Rate 105 H Respiratory Rate 18 Blood Pressure 129/84 Pulse Oximetry 96 Oxygen Delivery Method Nasal Cannula Oxygen Flow Rate 2 Narrative Exam Narrative: Left knee dressing intact, minimal swelling, mild pain with range of motion, left leg swelling blisters on the lateral leg, mild erythema, calf is soft and nontender, serous drainage Objective Labs Result Diagrams: 10/15/21 04:30 10/15/21 04:30 Labs: Laboratory Results - last 24 hr 10/16/21 10:20 Vancomycin Trough 9.8 L [facility] Medical History (Updated 10/15/21 @ 21:33 by Lorene Galvan) Afib (~2017) Anticoagulant long-term use (~2017) CAD (coronary artery disease) Chicken pox COPD (chronic obstructive pulmonary disease) (~2016) Current every day smoker Hearing loss ILD (interstitial lung disease) Measles Mumps Normal esophagogastroduodenoscopy (EGD) (2020) PNA (pneumonia) Psoriasis Shoulder pain (~2006) Venous stasis of lower extremity Wears glasses Surgical History (Updated 10/15/21 @ 21:33 by Lorene Galvan) Anesthesia History of arthroplasty of right knee (08/23/16) History of cardiac cath History of surgery Hx of appendectomy (~1957) Hx of colonoscopy Hx of heart artery stent (03/29/21) Hx of hernia repair Hx of skin graft (~1957) Family History (Updated 10/15/21 @ 21:35 by Lorene Galvan) Brother Cancer Grandfather Accident Grandmother Cancer Grandfather History of heart disease Grandmother Cancer Social History household members: spouse Smoking Status: Former smoker alcohol intake: current Assessment & Plan Assessment and plan (1) Venous stasis of lower extremity: Status: Acute Plan He is clinically improving with the left leg cellulitis and venous stasis issues. His wound is improved in comparison to previously. Has a history of a left total knee arthroplasty. I do not think he has an infection in his left knee. Think it is reasonable to plan to discharge him to home today on oral antibiotics. We can change his Aquacel dressing prior to discharge. He will keep his previously scheduled follow-up Dr. Torres. Time Spent With Patient Critical Care time: I spent a total of [] minutes of critical care time on this patient's care today; this time is exclusive of procedural time. Quality VTE Deep Vein Thrombosis/Pulmonary Embolism Present on Admission: No
[2021-10-17 08:21] VITALS: BP 129/84; PULSE 105
[2021-10-17] MEDS: RIVAROXABAN 10 MG TABLET 20 MG PO (08:21)
[2021-10-17] MEDS: METOPROLOL ER 25 MG TABLET 12.5 MG PO (08:21)
[2021-10-17] MEDS: OXYCODONE IR 5 MG TABLET PO ×2 (08:25→17:32)
[2021-10-17 08:35] VITALS: O2SAT 91
[2021-10-17 08:51] VITALS: PULSE 100
--- NOTE | 2021-10-17 10:29 | CM.DPC ---
DCP Discharge Home Per Ortho MD, pt medically stable to switch to oral abx and stable for discharge. Per Hospitalist, pt stable to discharge today. Per PT, pt still requiring assist and recommending SNF vs HH. LAURA met bedside with pt and explained role and he confirms he is agreeable with d/c to home today and [place] due to ferries adding an additional boat and pt's sons are also local on [facility] and pt denies [employer] [place] as he states Dr. Torres had already given him one for his f/u appoint and still good until tomorrow. SW inquired about SNF or HH and pt strongly declined and states he plans to d/c home and resume his outpt PT and spouse and sons can assist. LAURA updated RN. Plan: Patient to d/c home today via spouse POV and declines any further services and is established with outpt PT. Kathe Sinclair, SEE SUPERVISOR
--- NOTE | 2021-10-17 11:24 | PM.DS.1 ---
History of Present Illness History of Present Illness Chief complaint: lt knee infection s/p surgery Narrative: Mr. Erickson is a 76M with PMH afib on xarelto, COPD, PVD, chronic venous stasis who presents with fevers, left leg blister, and leg swelling and erythema. He was admitted recently with left knee osteoarthrits and underwent elective left knee repair. He did have some expected swelling after surgery and he said he had pain, but it was improving. Two days ago he was working with PT and scratched at his leg with his cane. He then noted a blister subsequently develop in his lower part of his leg, it became draining and weeping. He noted subjective fever and then redness and his leg so came in to the hospital. In the ED workup was done, vitals were notable for a temperature for 99.3, heart rate 103. Labs notable WBC 8.5, hgb 11.1, plts 210. Creatinine 0.84. Lactate 1.6. Bili 2.8, AST 88, ALT 119. Trop 0.025, BNP 1500. UA shows negative leuk esterase, nitrate. Chest xray shows chronic interstitial thickening, mild cardiomegaly. He was given IV antibiotics. Family history: patient denies any significant family history Discharge Providers Provider Date of admission: 10/15/21 09:50 Discharge Date: 10/17/21 Primary care physician: Heidi Calzada PA-C Consults: 10/14/21 06:34 Consult to Orthopedic Surgery Routine Comment: Consulting Provider: Aniyah Diaz Reason for consultation: infection, s/p knee replacement Has provider been notified: Yes 10/14/21 08:05 Consult to Physical Therapy Evaluate & Treat Comment: Physician Instructions: Evaluate and Treat 10/15/21 17:50 Consult to Dietitian, Adult Routine Comment: Reason For Exam: wound to LLE Discharge provider: Victor Manuel Crockett MD Summary Hospital Course Discharge Diagnosis: 1. Acute left leg cellulitis 2. Atrial fibrillation 3. s/p recent left knee replacement 4. Type 2 Diabetes 5. COPD with ILD Hospital Course: Mr. Erickson came in with a left leg cellulitis on his mahoney. He was s/p recent left knee replacement, and he was watched closely but he did not have evidence of any knee involvement. He was initially on IV antibiotics but switched to oral antibiotics on discharge. He was slightly hypoxemic on room air in the high 80s, which he says is his baseline. He was recommended oxygen to be setup at home, but declined and wanted to wait until he was feeling short of breath to be started. He was encouraged to follow up with is PCP. Exam Vital Signs (past 8 hours): Oxygen Delivery Method Nasal Cannula Oxygen Flow Rate 2 Narrative Exam Narrative: GEN: no acute distress CV: regular rate and rhythm, no murmurs PULM: clear bilaterally ABD: soft, nontender EXT: warm and well perfused, left leg mahoney erythema improved, blister draining serosanguinous fluid of leg leg, left knee range of motion intact, knee bandaged Objective Labs Result Diagrams: 10/15/21 04:30 10/15/21 04:30 [facility] Medical History (Updated 10/15/21 @ 21:33 by Lorene Galvan) Afib (~2017) Anticoagulant long-term use (~2017) CAD (coronary artery disease) Chicken pox COPD (chronic obstructive pulmonary disease) (~2016) Current every day smoker Hearing loss ILD (interstitial lung disease) Measles Mumps Normal esophagogastroduodenoscopy (EGD) (2020) PNA (pneumonia) Psoriasis Shoulder pain (~2006) Venous stasis of lower extremity Wears glasses Surgical History (Updated 10/15/21 @ 21:33 by oLrene Galvan) Anesthesia History of arthroplasty of right knee (08/23/16) History of cardiac cath History of surgery Hx of appendectomy (~1957) Hx of colonoscopy Hx of heart artery stent (03/29/21) Hx of hernia repair Hx of skin graft (~1957) Family History (Updated 10/15/21 @ 21:35 by Lorene Galvan) Brother Cancer Grandfather Accident Grandmother Cancer Grandfather History of heart disease Grandmother Cancer Social History household members: spouse Smoking Status: Former smoker alcohol intake: current Discharge Plan Discharge Plan Patient Disposition: Home Health Service Provider Discharge Comment: Mr. Erickson came in to the hospital with a leg infection. It improved with antibiotics. He will follow up with orthopedic surgery in the next few days. He did have low oxygen, which he states is normal for him with COPD. He was offered to be setup with oxygen at home, however he declined. He should follow up with his doctor within a week. Discharge orders & Medications Prescriptions: New cephalexin 500 mg capsule 500 mg PO QID Qty: 16 0RF Continued fluticasone propionate 50 mcg/actuation spray,suspension 2 spray Intranasal QDAY Qty: 16 3RF Breo Ellipta 100-25 mcg/dose blister with device 1 inh inhalation DAILY Qty: 30 5RF rosuvastatin 20 mg Tablet 20 mg PO DAILY 0RF acetaminophen 500 mg capsule 500 mg PO Q4H MDD Max 3000 mg per day PRN (Reason: fever or pain) Qty: 90 0RF docusate sodium 100 mg Capsule 100 mg PO BID PRN (Reason: constipation) Qty: 20 0RF oxycodone 5 mg Tablet 5 mg PO Q3HR PRN (Reason: Pain, Moderate (4-6)) Qty: 42 0RF Xarelto 20 mg tablet 20 mg PO DAILY Qty: 30 0RF Rx Instructions: must administer with evening meal metoprolol succinate 25 mg tablet extended release 24 hr 12.5 mg PO DAILY 0RF albuterol sulfate [Ventolin HFA] 90 mcg/actuation HFA aerosol inhaler 2 puff INHALATION Q4-6H PRN (Reason: Shortness Of Breath) Qty: 8.5 5RF ferrous sulfate 325 mg (65 mg iron) tablet 325 mg PO DAILY Qty: 90 0RF Rx Instructions: Take with Vitamin C ascorbic acid (vitamin C) 500 mg tablet 500 mg PO DAILY Qty: 90 0RF Rx Instructions: Take with iron metformin 500 mg tablet,ER tim.retention 24 hr 500 mg PO BID Qty: 60 5RF Follow up/Referrals: Gutierrez Torres MD [Physician] - As previously scheduled (Follow up with Katy Gomez PA-C, on 10/21/2021 @ 2:30 pm at [facility] office in [place]) Heidi Calzada PA-C [Primary Care Provider] - Discharge Data Primary Care Provider: Heidi Calzada Quality VTE Deep Vein Thrombosis/Pulmonary Embolism Present on Admission: No
--- NOTE | 2021-10-17 12:41 | PT-IP ANOTE ---
Contacted pt for PT treatment but he refused, stating he was discharging soon, had help at home, and planned to return to outpatient PT. Educated pt on benefits of continued mobility and pt agreed but continued to decline PT. Will follow up if pt does not discharge today.
--- NOTE | 2021-10-17 17:58 | PC.NURSE ---
Discharge Note Patient A&O, VSS, RA. Medicated for pain, no complaints of other discomforts. Discharge packet reviewed with patient, all questions/concerns addressed. PIV discontinued. Patient was able to dress self with minimal help. All belongings packed and given to patient. Patient taken down via wheelchair to [facility], accompanied by son.
== END 2021-10-17 18:00 | disposition home or self-care (01) | DRG 603 ==
LOC: ED 22:07 → AC 10-14 02:53
PROVIDERS: Admitting Provider Internal Medicine; Emergency Provider Emergency Medicine; PCP Physician Assistant; Referring Provider Emergency Medicine; Visit Provider Internal Medicine
DX: L03.116 Cellulitis of left lower limb (principal); J84.9 Interstitial pulmonary disease, unspecified; I48.91 Unspecified atrial fibrillation; J44.9 Chronic obstructive pulmonary disease, unspecified; E11.9 Type 2 diabetes mellitus without complications; I73.9 Peripheral vascular disease, unspecified; I87.8 Other specified disorders of veins; Z87.891 Personal history of nicotine dependence; Z79.01 Long term (current) use of anticoagulants; Z20.822 Contact with and (suspected) exposure to COVID-19; Z96.652 Presence of left artificial knee joint; Z79.84 Long term (current) use of oral hypoglycemic drugs
CPT/HCPCS: 36415; 71045; 80053; 80202; 81001; 82550; 82962; 83605; 83880; 84145; 84484; 85025; 87040; 87635; 93971; 94760; 96365; 96366; 96367; 97116; 97162; 97530; 99284; 99285; C9803; G0378; J0696; J1815

== ENCOUNTER 2021-11-09 11:21 | Inpatient (IN) | payer MEDICARE, OTHER, SELFPAY ==
[2021-10-14 18:00] VITALS: BMI 32.8
[2021-11-09] VITALS (42 sets, daily range): BP systolic 107–185; BP diastolic 68–118; PULSE 90–121; RESP 13–30; TEMP 36.1–36.6; O2SAT 66–96; BMI 29.9; BMI 35.3
[2021-11-09 12:09] LABS: INR 3.2 (0.9-1.3); Prothrombin Time 37.3 SECONDS (10.1-12.7)
[2021-11-09 12:10] LABS: Add Manual Diff / Slide Review NO; Basophils Absolute Auto 0 /uL (0-100); Basophils Percent Auto 0.3 % (0-2); Eosinophils Absolute Auto 0 /uL (0-450); Hematocrit 43.1 % (41-53); Hemoglobin 13.6 g/dL (13.5-17.5); Lymphocytes Absolute Auto 700 /uL (1100-4500); Lymphocytes Percent Auto 5.7 % (25-40); Mean Corpuscular HGB Conc 31.5 % (30-36); Mean Corpuscular Volume 88.8 fL (80-100); Monocytes Absolute Auto 900 /uL (0-900); Monocytes Percent Auto 6.9 % (3-14); Neutrophils Absolute Auto 10700 /uL (1500-7000); Neutrophils Percent Auto 87.1 % (50-75); Platelet Count 182 X10^3/uL (150-400); Red Blood Cell Count 4.85 X10^6/uL (4.5-5.9); Red Cell Distribution Width 23.5 % (11.6-14.8); White Blood Cell Count 12.3 X10^3/uL (4.5-11.0)
[2021-11-09 12:12] LABS: PTT Partial Thromboplastin Tim 41 SECONDS (26.4-36.2)
[2021-11-09 12:14] LABS: Alanine Aminotransferase 28 IU/L (<50); Alkaline Phosphatase 80 U/L (38-126); Aspartate Aminotransferase 37 IU/L (17-59); BUN Creatinine Ratio 20.4 (6-22); Bilirubin Total 2.1 mg/dL (0.2-1.3); Blood Urea Nitrogen 29 mg/dL (9-20); Calcium 8.6 mg/dL (8.4-10.2); Carbon Dioxide 30 mmol/L (22-32); Chloride 101 mmol/L (98-107); Estimated Glomerular Filt Rate 51 mL/min (>60); Globulin 4.1 g/dL (1.7-4.1); Glucose 153 mg/dL (80-110); HEMOLYSIS 19 (0-50); Lipase 31 U/L (23-300); Potassium 4.9 mmol/L (3.4-5.1); Sodium 139 mmol/L (137-145); Total Protein 8.1 g/dL (6.3-8.2)
[2021-11-09 12:37] LABS: Anisocytosis 1+
--- NOTE | 2021-11-09 13:21 | PC.NURSE ---
1310 Checked pt r/t spo2 reading 87% on central monitor, pt appears asleep, rouses easily to voice, spo2 increased to 91% while talking with pt, oriented x3, reports drowsy following pain medication, MD notified, placed on 4l NC
[2021-11-09 13:53] LABS: Bacteria Urine None Seen; Hyaline Casts Urine 1-5/LPF; RBC Urine None Seen (0-5/HPF); WBC Urine None Seen (0-5/HPF)
[2021-11-09 13:54] LABS: Culture Indicated Urine Cult Not Indicated; Mucus Urine 2+ (Negative)
--- NOTE | 2021-11-09 14:05 | ED.GENADULT ---
HPI - General Adult General Chief complaint: Abdominal Pain Stated complaint: Rt. abdominal pain Time Seen by Provider: 11/09/21 11:28 Source: patient and EMS Mode of arrival: EMS History of Present Illness HPI narrative: Gentleman with history of atrial fibrillation on Xarelto, history of COPD, peripheral vascular disease, osteoarthritis with left knee replacement in September and then subsequent left ankle infection presents with tachypnea, hypoxia hypertension and significant abdominal pain. The pain was initially noted 2 days ago starting in the right flank yesterday moved to include the mid abdominal area in today includes the entire abdomen. Was transferred via [facility] from [facility] for further evaluation. On arrival he is noted to be significantly tachypneic, tachycardic, hypertensive with decreased PaO2 as well as saturations. Exceptionally sensitive to Dilaudid in terms of respiratory depression. Does not describe significant cough, fevers, diarrhea, vomiting. He has not noticed any palpitations or headaches. Related Data Home Medications Medication Instructions Recorded Confirmed metoprolol succinate 25 mg 25 mg PO DAILY 09/16/21 11/09/21 tablet,extended release 24 hr rosuvastatin 20 mg tablet 20 mg PO DAILY 09/30/21 11/09/21 oxycodone 5 mg tablet 5 mg PO QID PRN 11/09/21 11/09/21 Previous Rx's Medication Instructions Recorded fluticasone propionate 50 2 spray INTRANASAL QDAY #16 gm 08/31/21 mcg/actuation nasal spray,suspension albuterol sulfate 90 mcg/actuation 2 puff INHALATION Q4-6H PRN #8.5 g 09/16/21 aerosol inhaler (Ventolin HFA) ascorbic acid (vitamin C) 500 mg 500 mg PO DAILY #90 tab 09/16/21 tablet ferrous sulfate 325 mg (65 mg 325 mg PO DAILY #90 tab 09/16/21 iron) tablet metformin 500 mg 24 hr 500 mg PO BID #60 tab 09/16/21 tablet,extended release fluticasone furoate 100 1 inh INHALATION DAILY #30 ea 09/30/21 mcg-vilanterol 25 mcg/dose inhalation powder (Breo Ellipta) acetaminophen 500 mg capsule 500 mg PO Q4H PRN #90 cap MDD Max 10/07/21 3000 mg per day docusate sodium 100 mg capsule 100 mg PO BID PRN #20 cap 04/21/22 rivaroxaban 20 mg tablet (Xarelto) 20 mg PO DAILY #30 tab 10/07/21 Allergies Allergy/AdvReac Type Severity Reaction Status Date / Time No Known Drug Allergies Allergy Verified 10/06/21 09:23 Review of Systems Review of Systems Narrative: Remainder of complete review of systems is otherwise unremarkable except for that included in the HPI. Patient History Medical History Afib (~2017) Anticoagulant long-term use (~2017) CAD (coronary artery disease) Chicken pox COPD (chronic obstructive pulmonary disease) (~2016) Current every day smoker Hearing loss ILD (interstitial lung disease) Measles Mumps Normal esophagogastroduodenoscopy (EGD) (2020) PNA (pneumonia) Psoriasis Shoulder pain (~2006) Venous stasis of lower extremity Wears glasses Surgical History Anesthesia History of arthroplasty of right knee (08/23/16) History of cardiac cath History of surgery Hx of appendectomy (~1957) Hx of colonoscopy Hx of heart artery stent (03/29/21) Hx of hernia repair Hx of skin graft (~1957) Family History Brother Cancer Grandfather Accident Grandmother Cancer Grandfather History of heart disease Grandmother Cancer Social History household members: spouse Smoking Status: Former smoker alcohol intake: current Smoking Status: Former smoker alcohol intake frequency: 0-2 drinks per day Substance Use Type: does not use Exam Initial Vital Signs Initial Vital Signs: Vital Signs Blood Pressure 161/101 H 11/09/21 11:29 General: In mild distress with tachypnea and hypoxia but able to speak in full sentences. Able to give a complete and coherent history. Well-nourished well-developed HEENT: Moist mucous membranes, normal sclera with reactive pupils, Neck: supple Respiratory: Lungs are clear to auscultation, no wheezing no rales no rhonchi. Full and symmetrical air movement Cardiac: Tachy, rate and rhythm no murmurs no bruits Abdomen: Soft, tender in all quadrants without rebound or guarding Skin: Warm and dry, chronic venous stasis changes of the lower extremities, left knee total knee incision is healing nicely Neurologic: Grossly neurologically intact with no obvious asymmetries or abnormalities Extremities: No trauma, Psych: Cooperative, appropriate insight and affect Course Orders Ordered: ED Orders 11/09/21 11:51 BNP [NT-proBNP (BNP-Adult 18+)] Stat Complete Blood Count AUTO DIFF Stat Comprehensive Metabolic Panel Stat Lipase Stat Partial Thromboplastin Time Stat Procalcitonin Stat Prothrombin Time INR Stat 11/09/21 13:09 Urine Microscopic Stat 11/09/21 13:57 ABG [Arterial Blood Gas] Stat 11/09/21 14:14 DD [D Dimer] Stat 11/09/21 14:27 CT abdomen pelvis w con Stat CT angio chest PE protocol Stat 11/09/21 15:45 COVID19 -Nasal RAPID/Pre-Proc Stat Discontinued Medications Ceftriaxone Sodium 2,000 mg/ (Sodium Chloride) 100 mls @ 200 mls/hr IV NOW ONE Stop: 11/09/21 16:24 Last Admin: 11/09/21 16:39 Dose: 200 mls/hr Documented by: Azithromycin 500 mg/ Dextrose 250 mls @ 250 mls/hr IV NOW ONE Stop: 11/09/21 16:24 Methylprednisolone (Methylprednisolone 125 Mg/2 Ml Vial) 125 mg IV NOW ONE Stop: 11/09/21 16:24 Last Admin: 11/09/21 16:39 Dose: 125 mg Documented by: Metoprolol Tartrate (Metoprolol Tartrate 5 Mg/5 Ml Inj) 5 mg IV Q5M [facility] Stop: 11/09/21 15:26 Last Admin: 11/09/21 15:48 Dose: 5 mg Documented by: Admin: 11/09/21 15:23 Dose: 5 mg Documented by: Admin: 11/09/21 15:10 Dose: 5 mg Documented by: RICK Tamsulosin HCl (Tamsulosin 0.4 Mg Capsule) 0.4 mg PO NOW ONE Stop: 11/09/21 17:03 Vital Signs Vital signs: Vital Signs - 8 hr 11/09/21 11:29 11/09/21 11:30 11/09/21 11:31 Temperature 97.8 F Pulse Rate 114 H 114 H Respiratory Rate 25 H 20 Blood Pressure 161/101 H 161/101 H Pulse Oximetry 95 94 11/09/21 11:54 11/09/21 12:00 11/09/21 12:30 Temperature Pulse Rate 115 H 115 H 116 H Respiratory Rate 20 19 16 Blood Pressure 170/110 H 165/107 H 168/107 H Pulse Oximetry 93 92 91 11/09/21 13:00 11/09/21 13:30 11/09/21 14:00 Temperature Pulse Rate 121 H 112 H 112 H Respiratory Rate 20 18 22 Blood Pressure 158/95 H 174/118 H 166/104 H Pulse Oximetry 66 L 91 91 11/09/21 14:30 11/09/21 14:58 11/09/21 15:00 Temperature Pulse Rate 111 H 111 H 110 H Respiratory Rate 19 25 H 21 Blood Pressure 168/105 H 170/110 H 175/110 H Pulse Oximetry 91 94 94 11/09/21 15:15 11/09/21 15:20 11/09/21 15:25 Temperature Pulse Rate 101 H 99 H 98 H Respiratory Rate 17 18 15 Blood Pressure 165/104 H 185/112 H 165/103 H Pulse Oximetry 94 93 93 11/09/21 15:30 11/09/21 15:44 11/09/21 15:45 Temperature Pulse Rate 94 H 96 H Respiratory Rate 18 18 Blood Pressure 162/101 H 147/93 H Pulse Oximetry 91 70 L 96 11/09/21 15:50 11/09/21 15:55 11/09/21 16:00 Temperature Pulse Rate 91 H 90 90 Respiratory Rate 14 15 16 Blood Pressure 146/94 H 142/88 H 137/81 Pulse Oximetry 93 89 L 93 11/09/21 16:05 11/09/21 16:10 11/09/21 16:15 Temperature Pulse Rate 90 91 H 91 H Respiratory Rate 18 15 15 Blood Pressure 127/84 132/90 134/93 H Pulse Oximetry 88 L 92 93 11/09/21 16:20 11/09/21 16:25 11/09/21 16:30 Temperature Pulse Rate 91 H 92 H 92 H Respiratory Rate 16 15 16 Blood Pressure 132/84 109/83 139/92 H Pulse Oximetry 92 90 L 93 11/09/21 16:36 11/09/21 16:40 Temperature Pulse Rate 93 H 93 H Respiratory Rate 16 17 Blood Pressure 134/89 126/84 Pulse Oximetry 94 94 Medical Decision Making Lab Data Result diagrams: 11/09/21 11:51 11/09/21 11:51 Labs: Lab Results 11/09/21 11/09/21 11/09/21 Range/Units 11:51 11:51 11:51 WBC 12.3 H (4.5-11.0) X10^3/uL RBC 4.85 (4.5-5.9) X10^6/uL Hgb 13.6 (13.5-17.5) g/dL Hct 43.1 (41-53) % MCV 88.8 (80-100) fL MCH 28.0 (26-34) PG MCHC 31.5 (30-36) % RDW 23.5 H (11.6-14.8) % Plt Count 182 (150-400) X10^3/uL Neut % (Auto) 87.1 H (50-75) % Lymph % (Auto) 5.7 L (25-40) % [place] % (Auto) 6.9 (3-14) % Eos % (Auto) 0.0 L (2-4) % Baso % (Auto) 0.3 (0-2) % Neut # (Auto) 92804 H (9724-6513) /uL Lymph # (Auto) 700 L (9361-8710) /uL [place] # (Auto) 900 (0-900) /uL Eos # (Auto) 0 (0-450) /uL Baso # (Auto) 0 (0-100) /uL RBC Morphology Not Reportable Anisocytosis 1+ H PT 37.3 H (10.1-12.7) SECONDS INR 3.2 H (0.9-1.3) APTT 41 H (26.4-36.2) SECONDS D-Dimer (<230) ng/mL ABG pH (7.35-7.45) ABG pCO2 (35-45) mmHg ABG pO2 (80-100) mmHg ABG HCO3 (22-26) mmol/L ABG Total CO2 (21-31) mmol/L ABG O2 Saturation (95-100) % ABG Base Excess (-2-2) mmol/L FiO2 Sodium 139 (137-145) mmol/L Potassium 4.9 (3.4-5.1) mmol/L Chloride 101 (98-107) mmol/L Carbon Dioxide 30 (22-32) mmol/L BUN 29 H (9-20) mg/dL Creatinine 1.42 H (0.66-1.25) mg/dL Estimated GFR 51 L (>60) mL/min BUN/Creatinine Ratio 20.4 (6-22) Glucose 153 H (80-110) mg/dL Calcium 8.6 (8.4-10.2) mg/dL Total Bilirubin 2.1 H (0.2-1.3) mg/dL AST 37 (17-59) IU/L ALT 28 (<50) IU/L Alkaline Phosphatase 80 (38-126) U/L NT-Pro-B Natriuret Pep (<450) pg/mL Total Protein 8.1 (6.3-8.2) g/dL Albumin 4.0 (3.5-5.0) g/dL Globulin 4.1 (1.7-4.1) g/dL Albumin/Globulin Ratio 1.0 (1.0-2.8) Lipase 31 (23-300) U/L Procalcitonin (<0.5) ng/mL Urine RBC (0-5/HPF) Urine WBC (0-5/HPF) Urine Bacteria (None) Hyaline Casts (None) Urine Mucus (Negative) Ur Culture Indicated? SARS-CoV-2 (PCR) (Negative) 11/09/21 11/09/21 11/09/21 Range/Units 11:51 13:09 13:57 WBC (4.5-11.0) X10^3/uL RBC (4.5-5.9) X10^6/uL Hgb (13.5-17.5) g/dL Hct (41-53) % MCV (80-100) fL MCH (26-34) PG MCHC (30-36) % RDW (11.6-14.8) % Plt Count (150-400) X10^3/uL Neut % (Auto) (50-75) % Lymph % (Auto) (25-40) % [place] % (Auto) (3-14) % Eos % (Auto) (2-4) % Baso % (Auto) (0-2) % Neut # (Auto) (6707-0630) /uL Lymph # (Auto) (2309-7919) /uL [place] # (Auto) (0-900) /uL Eos # (Auto) (0-450) /uL Baso # (Auto) (0-100) /uL RBC Morphology Anisocytosis PT (10.1-12.7) SECONDS INR (0.9-1.3) APTT (26.4-36.2) SECONDS D-Dimer (<230) ng/mL ABG pH 7.29 L* (7.35-7.45) ABG pCO2 59.3 H (35-45) mmHg ABG pO2 70 L (80-100) mmHg ABG HCO3 29 H (22-26) mmol/L ABG Total CO2 30 (21-31) mmol/L ABG O2 Saturation 91 L (95-100) % ABG Base Excess 2.0 (-2-2) mmol/L FiO2 34 Sodium (137-145) mmol/L Potassium (3.4-5.1) mmol/L Chloride (98-107) mmol/L Carbon Dioxide (22-32) mmol/L BUN (9-20) mg/dL Creatinine (0.66-1.25) mg/dL Estimated GFR (>60) mL/min BUN/Creatinine Ratio (6-22) Glucose (80-110) mg/dL Calcium (8.4-10.2) mg/dL Total Bilirubin (0.2-1.3) mg/dL AST (17-59) IU/L ALT (<50) IU/L Alkaline Phosphatase (38-126) U/L NT-Pro-B Natriuret Pep 3170 H (<450) pg/mL Total Protein (6.3-8.2) g/dL Albumin (3.5-5.0) g/dL Globulin (1.7-4.1) g/dL Albumin/Globulin Ratio (1.0-2.8) Lipase (23-300) U/L Procalcitonin 0.09 (<0.5) ng/mL Urine RBC None seen (0-5/HPF) Urine WBC None seen (0-5/HPF) Urine Bacteria None seen (None) Hyaline Casts 1-5/lpf (None) Urine Mucus 2+ H (Negative) Ur Culture Indicated? Cult not indicated SARS-CoV-2 (PCR) (Negative) 11/09/21 11/09/21 Range/Units 14:14 15:45 WBC (4.5-11.0) X10^3/uL RBC (4.5-5.9) X10^6/uL Hgb (13.5-17.5) g/dL Hct (41-53) % MCV (80-100) fL MCH (26-34) PG MCHC (30-36) % RDW (11.6-14.8) % Plt Count (150-400) X10^3/uL Neut % (Auto) (50-75) % Lymph % (Auto) (25-40) % [place] % (Auto) (3-14) % Eos % (Auto) (2-4) % Baso % (Auto) (0-2) % Neut # (Auto) (8728-4621) /uL Lymph # (Auto) (0194-3119) /uL [place] # (Auto) (0-900) /uL Eos # (Auto) (0-450) /uL Baso # (Auto) (0-100) /uL RBC Morphology Anisocytosis PT (10.1-12.7) SECONDS INR (0.9-1.3) APTT (26.4-36.2) SECONDS D-Dimer 649 H (<230) ng/mL ABG pH (7.35-7.45) ABG pCO2 (35-45) mmHg ABG pO2 (80-100) mmHg ABG HCO3 (22-26) mmol/L ABG Total CO2 (21-31) mmol/L ABG O2 Saturation (95-100) % ABG Base Excess (-2-2) mmol/L FiO2 Sodium (137-145) mmol/L Potassium (3.4-5.1) mmol/L Chloride (98-107) mmol/L Carbon Dioxide (22-32) mmol/L BUN (9-20) mg/dL Creatinine (0.66-1.25) mg/dL Estimated GFR (>60) mL/min BUN/Creatinine Ratio (6-22) Glucose (80-110) mg/dL Calcium (8.4-10.2) mg/dL Total Bilirubin (0.2-1.3) mg/dL AST (17-59) IU/L ALT (<50) IU/L Alkaline Phosphatase (38-126) U/L NT-Pro-B Natriuret Pep (<450) pg/mL Total Protein (6.3-8.2) g/dL Albumin (3.5-5.0) g/dL Globulin (1.7-4.1) g/dL Albumin/Globulin Ratio (1.0-2.8) Lipase (23-300) U/L Procalcitonin (<0.5) ng/mL Urine RBC (0-5/HPF) Urine WBC (0-5/HPF) Urine Bacteria (None) Hyaline Casts (None) Urine Mucus (Negative) Ur Culture Indicated? SARS-CoV-2 (PCR) Negative (Negative) Urine Dip Bedside Urine Glucose Negative Bedside Urine Bilirubin - Negative Bedside Urine Ketone +/- 5 Urine Specific [place] 1.030 Bedside Urine Occult Blood + Bedside Urine pH 5.5 Bedside Urine Protein ++ 100 Bedside Urine Urobilinogen - Negative Bedside Urine Nitrite - Negative Point of care testing: Urine Dip Bedside Urine Glucose Negative Bedside Urine Bilirubin - Negative Bedside Urine Ketone +/- 5 Urine Specific [place] 1.030 Bedside Urine Occult Blood + Bedside Urine pH 5.5 Bedside Urine Protein ++ 100 Bedside Urine Urobilinogen - Negative Bedside Urine Nitrite - Negative Imaging Data CT scan - chest: Radiologist's Impression: FINDINGS:? Image quality:? Excellent.? ? Pulmonary arteries:? Pulmonary arteries are normal in size, and demonstrate no intraluminal filling defects to suggest central pulmonary embolism.? ? Lungs and pleura:? Bilateral interstitial and ground-glass infiltrates.? Elevation of the right hemidiaphragm with right basilar atelectasis.? No pleural effusions or pneumothorax.? Central and peripheral airways are patent.? ? Mediastinum:? Heart size is mildly increased.? No pericardial effusion.? Moderate coronary artery calcification.? There is a stent in LAD.? Mildly enlarged mediastinal and hilar lymph nodes are present.? For example, there is a AP window lymph node measuring 1.5 cm.? A right paratracheal lymph node measures 1.0 cm in short axis.? A 1.5 cm right hilar lymph node is identified.? Thoracic aorta is normal in caliber and enhancement.? Esophagus is normal in caliber.? Small hernia.? ? Bones and chest wall:? No suspicious bony lesions.? Ribs and thoracic spine appear intact throughout.? Thyroid gland is normal.? No axillary or supraclavicular adenopathy.? ? Abdomen:? Please see separate report for CT abdomen/pelvis.? ? IMPRESSION:? ? 1. No evidence for pulmonary embolism. 2. Bilateral interstitial and ground-glass infiltrates may be secondary to pulmonary edema or bilateral pneumonia. 3. Mild cardiomegaly.? There is moderate coronary artery atherosclerosis.? A stent is seen within the LAD. 4. Mild mediastinal and hilar lymphadenopathy, most likely reactive. 5. Small hiatal hernia. ? ? ? Dictated by: Ady Estrada M.D. on 11/09/2021 at 15:09? ?? CT scan - abdomen/pelvis: Radiologist's Impression: FINDINGS:? Image quality:? Excellent.? ? Lung bases:? Bibasilar ground-glass and interstitial infiltrates.? Small hiatal hernia.? Please separate CT chest report for detail.? ? Heart:? Moderate cardiomegaly. ? ? ABDOMEN: Liver:? Unremarkable.? ? Gallbladder:? Unremarkable.? ? Biliary ducts:? Unremarkable.? ? Pancreas:? Focal stranding in the area of pancreatic head, most likely secondary to spread of inflammation from adjacent duodenitis.? ? Spleen:? Unremarkable.? ? Adrenal Glands:? Unremarkable.? ? Kidneys and Ureters:? Mild right hydronephrosis.? There is a 3 mm stone in the distal right ureter near the right UVJ.? No other renal calculi.? No left hydronephrosis. ? Stomach and Bowel:? Stomach is mildly distended.? There is mild thickening and stranding around the 2nd and 3rd portion of duodenum compatible with duodenitis.? Diverticulosis.? No CT findings to suggest acute diverticulitis.? There is a moderate amount of stool in colon. Peritoneum:? There is a small amount of free fluid around the liver, in the lesser sac and the right pericolic gutter.? No free peritoneal air.? ? Ventral Wall: ? No hernia.? Diffuse body wall edema in abdomen and upper thigh. Abdominal Nodes:? No retroperitoneal or mesenteric adenopathy by size criteria.? Vessels:? Aorta and inferior vena cava are normal in size.? There is [id number] atherosclerotic calcifications. ? PELVIS: Pelvic Organs:? Unremarkable.? ? Bladder:? Unremarkable.? ? Pelvic Nodes: No enlarged lymph nodes.? Miscellaneous: No inguinal hernias are seen.? Bilateral hydroceles in scrotum. ? ? Bones:? Moderate to severe degenerative changes in lumbar spine ? ? IMPRESSION:? ? 1. There is thickening and stranding involving the 2nd and 3rd portion of the duodenum, compatible with duodenitis.? A differential diagnosis is pancreatitis involving the pancreatic head with direct spread of inflammation to duodenum.? Recommend clinical correlation and imaging follow-up.? 2. A small amount of ascites. 3. A 3 mm obstructive stone is seen in the distal right ureter near the right UVJ.? There is mild right hydronephrosis. 4. Please see separate CT chest report. ? ? ? Dictated by: Ady Estrada M.D. on 11/09/2021 at 15:42? ?? ECG Data Interpretation: Tachycardia at 1:15 a.m. with 1st degree AV block, question atrial flutter Right bundle branch block No acute ischemic changes Repeated after IV metoprolol given. Rate is down to 91 and T and P-waves are now and he is in a sinus rhythm with first-degree block. Right bundle branch block persist. No ischemia. MDM Narrative Medical decision making narrative: 76-year-old gentleman with initial right flank pain now localizing to the center abdomen with increasing cough and hypoxia. History of chronic COPD and had been trying to get cleared for home oxygen. On arrival his oxygen saturations are in the upper 70s and is nasal pH is 7.29 with a CO2 of 59 and an O2 of 70. Slightly elevated white blood cell count with left shift and CT scan of the chest suggesting patchy bilateral infiltrates consistent with pneumonia. He started on ceftriaxone and azithromycin for community-acquired pneumonia. He does not have COVID-[address] scan also confirms 3 mm obstructive stone in the distal right ureter with mild right hydronephrosis. He also has duodenitis involving the 2nd and 3rd portions of the duodenum. Question of pancreatitis including the pancreatic head however his lipase is normal. Will need admission for bilateral pneumonia with hypoxia in the setting of chronic COPD, pain secondary to 3 mm obstructive stone in the right ureter. Urine does not appear to be acutely infected but will review with Urology. He was mildly tachycardic on arrival and with his chronic hypoxia certainly fit criteria for PE. CT scan does not confirm this. He has not taken his metoprolol today. He was given IV metoprolol and his heart rate has come down to the 90s. Will need admission for acute COPD exacerbation with bacterial pneumonia and complicating congestive heart failure. Incidental ureteral stone without obstruction. Reviewed with Nephrology, recommended tamsulosin until stone is passed follow-up with Dr. Sweeney as an outpatient. Duodenitis of uncertain etiology without evidence for acute pancreatitis . No evidence of pulmonary embolism or acute coronary syndrome. Care will be reviewed with the hospitalist service. Discharge Plan Departure Patient Disposition: Admitted As Inpatient Clinical Impression: Acute exacerbation of chronic obstructive pulmonary disease, Congestive heart failure, Community acquired pneumonia, Ureterolithiasis, Acute kidney injury, Acute duodenitis
[2021-11-09 14:06] LABS: Fractionated Inspired Oxygen 34; HCO3 ABG 29 mmol/L (22-26); Oxygen Saturation ABG 91 % (95-100); PCO2 ABG 59.3 mmHg (35-45); PO2 ABG 70 mmHg (80-100); TCO2 ABG 30 mmol/L (21-31)
[2021-11-09 14:07] LABS: pH ABG 7.29 (7.35-7.45)
--- NOTE | 2021-11-09 14:27 | DI.CT.S_ITS ---
PROCEDURE: CT ABDOMEN PELVIS W CON INDICATIONS: abdominal pain, leukocytosis TECHNIQUE: After the administration of oral and IV contrast, axial sections were acquired from the lung bases to the pubic symphysis. Coronal and sagittal reformats were performed. For radiation dose reduction, the following was used: automated exposure control, adjustment of mA and/or kV according to patient size. COMPARISON: None. FINDINGS: Image quality: Excellent. Lung bases: Bibasilar ground-glass and interstitial infiltrates. Small hiatal hernia. Please separate CT chest report for detail. Heart: Moderate cardiomegaly. ABDOMEN: Liver: Unremarkable. Gallbladder: Unremarkable. Biliary ducts: Unremarkable. Pancreas: Focal stranding in the area of pancreatic head, most likely secondary to spread of inflammation from adjacent duodenitis. Spleen: Unremarkable. Adrenal Glands: Unremarkable. Kidneys and Ureters: Mild right hydronephrosis. There is a 3 mm stone in the distal right ureter near the right UVJ. No other renal calculi. No left hydronephrosis. Stomach and Bowel: Stomach is mildly distended. There is mild thickening and stranding around the 2nd and 3rd portion of duodenum compatible with duodenitis. Diverticulosis. No CT findings to suggest acute diverticulitis. There is a moderate amount of stool in colon. Peritoneum: There is a small amount of free fluid around the liver, in the lesser sac and the right pericolic gutter. No free peritoneal air. Ventral Wall: No hernia. Diffuse body wall edema in abdomen and upper thigh. Abdominal Nodes: No retroperitoneal or mesenteric adenopathy by size criteria. Vessels: Aorta and inferior vena cava are normal in size. There is [id number] atherosclerotic calcifications. PELVIS: Pelvic Organs: Unremarkable. Bladder: Unremarkable. Pelvic Nodes: No enlarged lymph nodes. Miscellaneous: No inguinal hernias are seen. Bilateral hydroceles in scrotum. Bones: Moderate to severe degenerative changes in lumbar spine IMPRESSION: 1. There is thickening and stranding involving the 2nd and 3rd portion of the duodenum, compatible with duodenitis. A differential diagnosis is pancreatitis involving the pancreatic head with direct spread of inflammation to duodenum. Recommend clinical correlation and imaging follow-up. 2. A small amount of ascites. 3. A 3 mm obstructive stone is seen in the distal right ureter near the right UVJ. There is mild right hydronephrosis. 4. Please see separate CT chest report. Dictated by: Ady Estrada M.D. on 11/09/2021 at 15:42 Approved by: Ady Estrada M.D. on 11/09/2021 at 15:53
--- NOTE | 2021-11-09 14:27 | DI.CT.S_ITS ---
PROCEDURE: CT ANGIO CHEST PE PROTOCOL [facility], hypoxic, recent surgery, dyspnic TECHNIQUE: After the administration of intravenous contrast, 2 mm thick sections acquired from the pulmonary apices to the posterior costophrenic angles. 3-dimensional maximum intensity projection (MIP) coronal and sagittal reformats were then acquired through the thorax. For radiation dose reduction, the following was used: automated exposure control, adjustment of mA and/or kV according to patient size. COMPARISON: [facility], CR, XR CHEST 1V, 10/13/2021, 22:22. CT, CT CHEST WO CON, 01/24/2018, 12:31. CT, CT CHEST WO CON, 11/02/2017, 14:07. [facility], CT, CT CHEST WO CON, 12/03/2020, 13:03. FINDINGS: Image quality: Excellent. Pulmonary arteries: Pulmonary arteries are normal in size, and demonstrate no intraluminal filling defects to suggest central pulmonary embolism. Lungs and pleura: Bilateral interstitial and ground-glass infiltrates. Elevation of the right hemidiaphragm with right basilar atelectasis. No pleural effusions or pneumothorax. Central and peripheral airways are patent. Mediastinum: Heart size is mildly increased. No pericardial effusion. Moderate coronary artery calcification. There is a stent in LAD. Mildly enlarged mediastinal and hilar lymph nodes are present. For example, there is a AP window lymph node measuring 1.5 cm. A right paratracheal lymph node measures 1.0 cm in short axis. A 1.5 cm right hilar lymph node is identified. Thoracic aorta is normal in caliber and enhancement. Esophagus is normal in caliber. Small hernia. Bones and chest wall: No suspicious bony lesions. Ribs and thoracic spine appear intact throughout. Thyroid gland is normal. No axillary or supraclavicular adenopathy. Abdomen: Please see separate report for CT abdomen/pelvis. IMPRESSION: 1. No evidence for pulmonary embolism. 2. Bilateral interstitial and ground-glass infiltrates may be secondary to pulmonary edema or bilateral pneumonia. 3. Mild cardiomegaly. There is moderate coronary artery atherosclerosis. A stent is seen within the LAD. 4. Mild mediastinal and hilar lymphadenopathy, most likely reactive. 5. Small hiatal hernia. Dictated by: Ady Estrada M.D. on 11/09/2021 at 15:09 Approved by: Ady Estrada M.D. on 11/09/2021 at 15:31
[2021-11-09 14:42] LABS: D Dimer 649 ng/mL (<230)
[2021-11-09] MEDS: METOPROLOL TARTRATE 5 MG/5 ML INJ IV ×3 (15:10→15:48)
[2021-11-09 16:20] LABS: COVID19 -Nasal RAPID Negative (Negative)
[2021-11-09] MEDS: methylPREDNISolone 125 MG/2 ML VIAL IV (16:39)
[2021-11-09] MEDS: cefTRIAXone 2,000 MG in SODIUM CHLORIDE 0.9% 100 ML 200 MG IV (16:39)
[2021-11-09 16:50] LABS: NT-proBNP (BNP-Adult 18+) 3170 pg/mL (<450)
[2021-11-09 16:58] LABS: Procalcitonin 0.09 ng/mL (<0.5)
[2021-11-09] MEDS: TAMSULOSIN 0.4 MG CAPSULE PO (17:25)
[2021-11-09] MEDS: AZITHROMYCIN 500 MG in DEXTROSE 5% IN WATER 250 ML 250 MG IV (17:25)
--- NOTE | 2021-11-09 18:12 | PC.NURSE ---
Pt given a sandwich, pudding, apple sauce, and water. Pt ate 100%
--- NOTE | 2021-11-09 21:14 | P.HP_ITS ---
History of Present Illness History of Present Illness Date Patient Seen: 11/09/21 Time Patient Seen: 21:15 Chief complaint: Rt. abdominal pain Narrative: Shine Colbert is a 76 y.o. male with a history of atrial fibrillation anticoagulated on Xarelto, COPD, peripheral vascular disease, osteoarthritis with left knee replacement in September and then subsequent left ankle infection presented to the ED with tachypnea, hypoxia hypertension and significant abdominal pain.? The pain was initially noted 2 days ago starting in the right flank yesterday and and moved to include the mid abdominal area in today includes the entire abdomen. He was transferred via [facility] from [facility] for further evaluation.? On arrival he is noted to be significantly tachypneic, tachycardic, hypertensive with decreased PaO2 as well as saturations.? He endorses shortness of breath pain below waistline across back no n/v, chest pain, cough, he does endorse abdominal bloating, denies lower extremity swelling/neuropathy, no diarrhea or constipation. He is currently afebrile, blood pressure 120/86, heart rate 104, respiratory rate 18, oxygen saturation of 93% on 4 L he weighs 114.8 kg with a BMI of 35.3. His presenting white count was 12.3, he has a left shift of almost 11,000, his D-dimer was initially 649, pH 7.29, with ABG O2 saturation of 91%, creatinine was 1.42, EGFR is 51, glucose 153 with a normal A1c, T bili was 2.1, an a proBNP of 3170. Lipase was normal procalcitonin was also normal, UA was negative for UTI, and COVID-19 PCR is negative. Patient History Medical History Afib (~2017) Anticoagulant long-term use (~2017) CAD (coronary artery disease) Chicken pox COPD (chronic obstructive pulmonary disease) (~2016) Current every day smoker Hearing loss ILD (interstitial lung disease) Measles Mumps Normal esophagogastroduodenoscopy (EGD) (2020) PNA (pneumonia) Psoriasis Shoulder pain (~2006) Venous stasis of lower extremity Wears glasses Surgical History Anesthesia History of arthroplasty of right knee (08/23/16) History of cardiac cath History of surgery Hx of appendectomy (~1957) Hx of colonoscopy Hx of heart artery stent (03/29/21) Hx of hernia repair Hx of skin graft (~1957) Family & Social History Family History Brother Cancer Grandfather Accident Grandmother Cancer Grandfather History of heart disease Grandmother Cancer Social History: household members spouse Safety & Behavioral: Feels Safe in Current Yes Environment Tobacco & Substance use: Tobacco type 1-1/2 ppd Smoking Status Former smoker, quit 3 months ago alcohol intake current alcohol intake frequency 0-2 drinks per day Substance Use Type does not use Meds Home Medications and Allergies Home Medications Medication Instructions Recorded Confirmed Type fluticasone propionate 50 2 spray INTRANASAL QDAY #16 gm 08/31/21 11/09/21 Rx mcg/actuation nasal spray,suspension albuterol sulfate 90 mcg/actuation 2 puff INHALATION Q4-6H PRN #8.5 g 09/16/21 11/09/21 Rx aerosol inhaler (Ventolin HFA) ascorbic acid (vitamin C) 500 mg 500 mg PO DAILY #90 tab 09/16/21 11/09/21 Rx tablet ferrous sulfate 325 mg (65 mg 325 mg PO DAILY #90 tab 09/16/21 11/09/21 Rx iron) tablet metformin 500 mg 24 hr 500 mg PO BID #60 tab 09/16/21 11/09/21 Rx tablet,extended release metoprolol succinate 25 mg 25 mg PO DAILY 09/16/21 11/09/21 History tablet,extended release 24 hr fluticasone furoate 100 1 inh INHALATION DAILY #30 ea 09/30/21 11/09/21 Rx mcg-vilanterol 25 mcg/dose inhalation powder (Breo Ellipta) rosuvastatin 20 mg tablet 20 mg PO DAILY 09/30/21 11/09/21 History acetaminophen 500 mg capsule 500 mg PO Q4H PRN #90 cap MDD Max 10/07/21 11/09/21 Rx 3000 mg per day docusate sodium 100 mg capsule 100 mg PO BID PRN #20 cap 10/07/21 11/09/21 Rx rivaroxaban 20 mg tablet (Xarelto) 20 mg PO DAILY #30 tab 10/07/21 11/09/21 Rx oxycodone 5 mg tablet 5 mg PO QID PRN 11/09/21 11/09/21 History Allergies Allergy/AdvReac Type Severity Reaction Status Date / Time No Known Drug Allergies Allergy Verified 10/06/21 09:23 Review of Systems Review of Systems ROS: Yes All systems reviewed with the patient and are negative except as otherwise documented Exam Vital Signs (past 8 hours): - 11/09/21 13:30 11/09/21 14:00 11/09/21 14:30 Temperature Pulse Rate 112 H 112 H 111 H Respiratory Rate 18 22 19 Blood Pressure 174/118 H 166/104 H 168/105 H Pulse Oximetry 91 91 91 11/09/21 14:58 11/09/21 15:00 11/09/21 15:15 Temperature Pulse Rate 111 H 110 H 101 H Respiratory Rate 25 H 21 17 Blood Pressure 170/110 H 175/110 H 165/104 H Pulse Oximetry 94 94 94 11/09/21 15:20 11/09/21 15:25 11/09/21 15:30 Temperature Pulse Rate 99 H 98 H 94 H Respiratory Rate 18 15 18 Blood Pressure 185/112 H 165/103 H 162/101 H Pulse Oximetry 93 93 91 11/09/21 15:44 11/09/21 15:45 11/09/21 15:50 Temperature Pulse Rate 96 H 91 H Respiratory Rate 18 14 Blood Pressure 147/93 H 146/94 H Pulse Oximetry 70 L 96 93 11/09/21 15:55 11/09/21 16:00 11/09/21 16:05 Temperature Pulse Rate 90 90 90 Respiratory Rate 15 16 18 Blood Pressure 142/88 H 137/81 127/84 Pulse Oximetry 89 L 93 88 L 11/09/21 16:10 11/09/21 16:15 11/09/21 16:20 Temperature Pulse Rate 91 H 91 H 91 H Respiratory Rate 15 15 16 Blood Pressure 132/90 134/93 H 132/84 Pulse Oximetry 92 93 92 11/09/21 16:25 11/09/21 16:30 11/09/21 16:36 Temperature Pulse Rate 92 H 92 H 93 H Respiratory Rate 15 16 16 Blood Pressure 109/83 139/92 H 134/89 Pulse Oximetry 90 L 93 94 11/09/21 16:40 11/09/21 16:45 11/09/21 16:50 Temperature Pulse Rate 93 H 92 H 93 H Respiratory Rate 17 16 17 Blood Pressure 126/84 128/83 136/96 H Pulse Oximetry 94 93 93 11/09/21 16:55 11/09/21 17:00 11/09/21 17:05 Temperature Pulse Rate 93 H 92 H 93 H Respiratory Rate 16 15 14 Blood Pressure 135/97 H 132/93 H 129/85 Pulse Oximetry 91 93 92 11/09/21 17:10 11/09/21 17:15 11/09/21 17:20 Temperature Pulse Rate 93 H 94 H 93 H Respiratory Rate 16 16 16 Blood Pressure 127/83 134/86 126/81 Pulse Oximetry 92 91 90 L 11/09/21 17:25 11/09/21 17:30 11/09/21 18:00 Temperature Pulse Rate 94 H 96 H 96 H Respiratory Rate 14 30 H 13 Blood Pressure 135/87 124/84 107/72 Pulse Oximetry 92 91 90 L 11/09/21 18:30 11/09/21 20:10 Temperature 97.5 F L 97.0 F L Pulse Rate 98 H 96 H Respiratory Rate 17 18 Blood Pressure 108/68 164/89 H Pulse Oximetry 92 93 Oxygen Delivery Method Nasal Cannula Oxygen Flow Rate 4 Narrative Exam Narrative: Gen: Alert, oriented, obese 76 y.o. male, appears uncomfortable HEENT: normocephalic, atraumatic, conjunctiva clear, sclera non-icteric, oral mucosa pink and moist Neck: supple, full ROM, no JVD, trachea is midline Resp: Lungs CTA, non-labored breathing CV: RRR, no murmur or rubs Abd: obese, mildly distended, non-tender, normoactive BTs Skin: no lesions or rashes, dry and intact Neuro: Alert and oriented X 4 w/no focal deficits. Speech clear and coherent. Extremities: moves all 4 extremities, is ambulatory, negative Delano?s sign Psyche: normal mood and affect. Objective Labs Result Diagrams: 11/09/21 11:51 11/09/21 11:51 Labs: Laboratory Results - last 24 hr 11/09/21 11/09/21 11/09/21 11:51 11:51 11:51 WBC 12.3 H RBC 4.85 Hgb 13.6 Hct 43.1 MCV 88.8 MCH 28.0 MCHC 31.5 RDW 23.5 H Plt Count 182 Neut % (Auto) 87.1 H Lymph % (Auto) 5.7 L [place] % (Auto) 6.9 Eos % (Auto) 0.0 L Baso % (Auto) 0.3 Neut # (Auto) 25431 H Lymph # (Auto) 700 L [place] # (Auto) 900 Eos # (Auto) 0 Baso # (Auto) 0 RBC Morphology Not Reportable Anisocytosis 1+ H PT 37.3 H INR 3.2 H APTT 41 H D-Dimer ABG pH ABG pCO2 ABG pO2 ABG HCO3 ABG Total CO2 ABG O2 Saturation ABG Base Excess FiO2 Sodium 139 Potassium 4.9 Chloride 101 Carbon Dioxide 30 BUN 29 H Creatinine 1.42 H Estimated GFR 51 L BUN/Creatinine Ratio 20.4 Glucose 153 H Calcium 8.6 Total Bilirubin 2.1 H AST 37 ALT 28 Alkaline Phosphatase 80 NT-Pro-B Natriuret Pep Total Protein 8.1 Albumin 4.0 Globulin 4.1 Albumin/Globulin Ratio 1.0 Lipase 31 Procalcitonin Urine RBC Urine WBC Urine Bacteria Hyaline Casts Urine Mucus Ur Culture Indicated? SARS-CoV-2 (PCR) 11/09/21 11/09/21 11/09/21 11:51 13:09 13:57 WBC RBC Hgb Hct MCV MCH MCHC RDW Plt Count Neut % (Auto) Lymph % (Auto) [place] % (Auto) Eos % (Auto) Baso % (Auto) Neut # (Auto) Lymph # (Auto) [place] # (Auto) Eos # (Auto) Baso # (Auto) RBC Morphology Anisocytosis PT INR APTT D-Dimer ABG pH 7.29 L* ABG pCO2 59.3 H ABG pO2 70 L ABG HCO3 29 H ABG Total CO2 30 ABG O2 Saturation 91 L ABG Base Excess 2.0 FiO2 34 Sodium Potassium Chloride Carbon Dioxide BUN Creatinine Estimated GFR BUN/Creatinine Ratio Glucose Calcium Total Bilirubin AST ALT Alkaline Phosphatase NT-Pro-B Natriuret Pep 3170 H Total Protein Albumin Globulin Albumin/Globulin Ratio Lipase Procalcitonin 0.09 Urine RBC None seen Urine WBC None seen Urine Bacteria None seen Hyaline Casts 1-5/lpf Urine Mucus 2+ H Ur Culture Indicated? Cult not indicated SARS-CoV-2 (PCR) 11/09/21 11/09/21 14:14 15:45 WBC RBC Hgb Hct MCV MCH MCHC RDW Plt Count Neut % (Auto) Lymph % (Auto) [place] % (Auto) Eos % (Auto) Baso % (Auto) Neut # (Auto) Lymph # (Auto) [place] # (Auto) Eos # (Auto) Baso # (Auto) RBC Morphology Anisocytosis PT INR APTT D-Dimer 649 H ABG pH ABG pCO2 ABG pO2 ABG HCO3 ABG Total CO2 ABG O2 Saturation ABG Base Excess FiO2 Sodium Potassium Chloride Carbon Dioxide BUN Creatinine Estimated GFR BUN/Creatinine Ratio Glucose Calcium Total Bilirubin AST ALT Alkaline Phosphatase NT-Pro-B Natriuret Pep Total Protein Albumin Globulin Albumin/Globulin Ratio Lipase Procalcitonin Urine RBC Urine WBC Urine Bacteria Hyaline Casts Urine Mucus Ur Culture Indicated? SARS-CoV-2 (PCR) Negative Assessment & Plan Assessment & Plan narrative: Shine Erickson is admitted for bilateral pneumonia, COPD exacerbation, CHF exacerbation, suspected GEETA, and a incidental finding of a right-sided nonobstr ucting urethrovesical stone 1. Bilateral pneumonia * IV ceftriaxone and his oral azithromycin, received 1st doses in the ED 2. Heart failure with preserved ejection fraction, exacerbation * Chads Vasc score of 7 * Last echo was done in late September 2020 he had a normal ejection fraction * ProBNP is severely elevated at 3170 * Limited echo in the morning 3. COPD exacerbation * DuoNeb and albuterol as needed * Have requested RT to see the patient 4. Suspected GEETA * Patient was snoring loudly when I entered into the room * Requested RT evaluate for CPAP 5. Incidental finding of right nonobstructing urethrovesical stone * Patient denies having any hematuria or pain currently 6. CAD * History of stenting this year * Sees Dr. Yeung, flame cutter 7. Diabetes type 2 * A1c is 5.1 8. Dyslipidemia * Continue home dose of rosuvastatin 20 mg p.o. daily VTE Prophylaxis: Wells risk score 1.5 [X] Bilateral SCDs Patient is currently anticoagulated on Xarelto. Patient is admitted to the inpatient service due to the severity of disease, risks of further disease progression and this stay is expected to exceed 2 midnights. FEN: IV fluids: saline lock, diet: carb controlled diet, labs: CBC, C/BMP, liver enzymes, Mag Consultants None Dispo: probable d/c to home Code status: Full Code as discussed with the patient who identifies his , Klever as his surrogate and POA. [X] I have utilized all available immediate resources to obtain, update, or review of the patient's current medications COVID-19 COVID-19 status: Negative Result date/Date tested (Pos, Neg/Pending): 11/09/21 Scores CHADS-VASc Congestive heart failure: yes Hypertension: yes Age 75 years or older: yes Diabetes mellitus: yes Stroke, TIA, or TE: no Vascular disease: yes Age 65 to 74 years: yes Sex category (female): Male CHADS-VASc Score: 7 Wells' Criteria for PE Clinical signs and symptoms of DVT: No PE is #1 Dx or equally likely: No Heart rate > 100: Yes Immobilization at least 3 days or surg in previous 4 weeks: No History of PE or DVT: No Hemoptysis: No Malignancy w/Treatment within 6 months or palliative: No Wells' PE Score total: 1.5 Quality VTE Deep Vein Thrombosis/Pulmonary Embolism Present on Admission: No MIPS - Admit I confirm the patient?s Advance Care Plan is present, Code status is documented, Surrogate decision maker is in patient?s record [If Yes, STOP here]: Yes MIPS - DC The patient has current or prior documentation of left ventricular ejection fraction (LVEF) less than 40%, or moderate or severely depressed left ventricular systolic function.: No
[2021-11-09 21:38] LABS: Magnesium 1.9 mg/dL (1.6-2.3)
[2021-11-09 22:02] LABS: Hemoglobin A1C% w Est Avg Glu 5.6 % (4.0-6.0)
[2021-11-09] MEDS: RIVAROXABAN 10 MG TABLET 20 MG PO (22:38)
[2021-11-10] VITALS (9 sets, daily range): BP systolic 120–138; BP diastolic 72–86; PULSE 101–108; RESP 16–18; TEMP 36.4–36.8; O2SAT 90–95
[2021-11-10 04:04] LABS: BUN Creatinine Ratio 22.7 (6-22); Basophils Absolute Auto 0 /uL (0-100); Basophils Percent Auto 0.1 % (0-2); Blood Urea Nitrogen 32 mg/dL (9-20); Calcium 8.3 mg/dL (8.4-10.2); Carbon Dioxide 28 mmol/L (22-32); Chloride 102 mmol/L (98-107); Eosinophils Absolute Auto 0 /uL (0-450); Estimated Glomerular Filt Rate 51 mL/min (>60); Glucose 185 mg/dL (80-110); HEMOLYSIS < 15 (0-50); Hematocrit 42.2 % (41-53); Hemoglobin 13.2 g/dL (13.5-17.5); Lymphocytes Absolute Auto 500 /uL (1100-4500); Lymphocytes Percent Auto 3.2 % (25-40); Mean Corpuscular HGB Conc 31.3 % (30-36); Mean Corpuscular Volume 89.4 fL (80-100); Monocytes Absolute Auto 800 /uL (0-900); Monocytes Percent Auto 5.9 % (3-14); Neutrophils Absolute Auto 12700 /uL (1500-7000); Neutrophils Percent Auto 90.8 % (50-75); Platelet Count 152 X10^3/uL (150-400); Potassium 5.2 mmol/L (3.4-5.1); Red Blood Cell Count 4.72 X10^6/uL (4.5-5.9); Red Cell Distribution Width 23.6 % (11.6-14.8); Sodium 138 mmol/L (137-145); White Blood Cell Count 13.9 X10^3/uL (4.5-11.0)
[2021-11-10 04:09] LABS: Add Manual Diff / Slide Review SLIDE REVIEW
--- NOTE | 2021-11-10 05:41 | PC.NURSE ---
2300: assumed care of patient from YULIYA MCCOY. patient is drowsy, oriented. [place]- states he lost a hearing aid on the floor but so far have not located it. anticipate it is in his bed. will pass on to the next shift (when he gets OOB). continues w/ o2 4lpm via NC. sats dropped easily as he breathes thru his mouth. hands are cold to touch. spo2 difficult to read at times. warm blanket applied to BUE's to keep saturation readings accurate. 0540: patient requesting oxycodone for reported generalized (back and bilat knees- hx of arthoplasty) call to DOCUMENT ADVISOR requesting pain med. oxycodone 5mg x 1 now order received. kcl is 5.2, notified her of this as well.
[2021-11-10] MEDS: OXYCODONE IR 5 MG TABLET PO (05:52)
[2021-11-10 07:04] LABS: Anisocytosis 2+
[2021-11-10 07:05] LABS: Polychromasia 1+
[2021-11-10] MEDS: AZITHROMYCIN 250 MG TABLET 500 MG PO (09:00)
[2021-11-10] MEDS: METOPROLOL ER 25 MG TABLET PO (09:00)
--- NOTE | 2021-11-10 15:36 | CM.DANOTE ---
Patient is a 76 yo male who was admitted on 11/09/21 for Abd Pain. Pt has [employer] and [employer] for insurance and his PCP is Heidi Calzada. EMR was reviewed. Per MD, pt has hx of recent knee replacement and ankle infection and now admitted for Bilateral pneumonia, COPD, CHF. Pt has a hx of opioid dependence from prior surgeries and MD recommends possible pain contract. SW met bedside with pt and explained role and remember this pt from his admission last month after his Knee replacement and then ankle infection. Pt declined HH last month and discharged home via spouse POV. Pt confirms he still resides with spouse on [facility] and is independent at baseline with ADL's and denies any needs for d/c beyond realizing he may now need home oxygen set up at discharge. SW discussed process of having RT assess for home O2 closer to d/c. Pt inquired about pain medication as he brought his own home med of pain medication and used in the ED without initially informing staff before home meds were stored and he has concerns that he will now be short a couple doses. SW discussed though that he is receiving his medications here at the hospital to make up for his home med shortage. Pt preference is home tomorrow via spouse POV and declines need for HH again. Plan: SW to follow closely for likely pt d/c home via spouse POV and possible need for RT to assess for new home O2. JIAN Locke Discharge Planning/Care Management CM Discharge Assessment Start: 11/10/21 15:35 Freq: Status: Active Protocol: Document 11/10/21 15:35 BF (Rec: 11/10/21 15:36 BF [id number]) Discharge Planning Assessment Assigned Road Driver JIAN Archuleta Advance Directives? Yes Advance Directives on File No History Provided By Patient,Medical Record Has Patient been admitted in last 30 Yes days? Household Members spouse Type of transporation used prior to Drives own vehicle admit Independent with ADL's Yes Is patient alert and oriented? Yes Caregiver for Another No Barriers to Discharge No Comment Lives on [facility], spouse can transport Discharge Plan Home Transportation Arrangement Family Referrals Initiated None needed Additional Comment pt declines HH but may need RT to assess for home O2 Whiteboard Updated in Patient Room with Yes name and ext. # of Road Driver Review Status In Process Please Provide Date Initial DC 11/10/21 Assessment Was Performed Next Review Type Continued Stay Review
[2021-11-10] MEDS: cefTRIAXone 1,000 MG in SODIUM CHLORIDE 0.9% 100 ML 200 MG IV (16:05)
[2021-11-10] MEDS: RIVAROXABAN 10 MG TABLET 20 MG PO (16:05)
--- NOTE | 2021-11-10 18:06 | PC.NURSE ---
Pt is AxOx4, VSS, pt is now on 4L sats mid 90s but sometimes desat to 88-87%, it can be due to position of his finger in pulse ox. Pt is encouraged doing IS, no c/o pain. Pt is eating well. No other changes.
--- NOTE | 2021-11-10 19:21 | P.PN_ITS ---
Subjective Subjective Date Patient Seen: 11/10/21 Interval history: PATIENT BEING TREATED FOR AN OBSTRUCTIVE KIDNEY STONE. ALSO HAS COPD WITH ACUTE EXACERBATION. TODAY FEELING MUCH BETTER. DENIES ANY INCREASING SHORTNESS OF BREATH NO CHEST PAIN. NO CHEST PRESSURE NO NAUSEA OR VOMITING WOULD LIKE TO GO HOME IN THE MORNING Exam Vital Signs (past 8 hours): - 11/10/21 12:00 11/10/21 13:22 11/10/21 18:00 Temperature 98.2 F 97.9 F Pulse Rate 106 H 106 H 101 H Respiratory Rate 16 18 Blood Pressure 131/86 131/86 138/77 Pulse Oximetry 95 95 Oxygen Delivery Method Nasal Cannula Oxygen Flow Rate 0 Narrative Exam Narrative: NO ACUTE DISTRESS. PATIENT IS ALERT ORIENTED X3. VITAL SIGNS STABLE HEAD ATRAUMATIC NORMOCEPHALIC NECK : SUPPLE WITHOUT ADENOPATHY NO CAROTID BRUITS EYE: EOMI, PERRLA, NORMAL CONJUNCTIVA; NO JAUNDICE CHEST: REGULAR RATE. NO RUBS. PMI IS NON DISPLACED. NO MURMURS; NORMAL S1- S2 PULMONARY: DECREASED BS OVER THE BASES. MILD BIBASILAR CRACKLES NOTED; NO INCREASED DULLNESS TO PERCUSSION ABDOMEN: SOFT. NONTENDER. NONDISTENDED. BOWEL SOUNDS ARE PRESENT IN ALL 4 QUADRANTS. NO MASS. EXTREMITIES: NO EDEMA.. NO CYANOSIS CLUBBING NOTED. NEURO: CRANIAL NERVES 2-12 GROSSLY INTACT. NO FOCAL NEUROLOGICAL DEFICIT NOTED. MSK: NORMAL RANGE OF MOTION FOR AGE. NO JOINT EFFUSION. SKIN: NORMAL FOR ETHNICITY; NO ECCHYMOSIS. NO LESION. GOOD TURGOR.; NO RASHES : NORMAL EXTERNAL GENITALIA. PSYCH : APPROPRIATE MOOD AND AFFECT. ALERT AWAKE ORIENTED X3 Objective Labs Result Diagrams: 11/10/21 03:37 11/10/21 03:37 Labs: Laboratory Results - last 24 hr 11/09/21 11/09/21 11/10/21 11:51 11:51 03:37 WBC 13.9 H RBC 4.72 Hgb 13.2 L Hct 42.2 MCV 89.4 MCH 28.0 MCHC 31.3 RDW 23.6 H Plt Count 152 Neut % (Auto) 90.8 H Lymph % (Auto) 3.2 L [place] % (Auto) 5.9 Eos % (Auto) 0.0 L Baso % (Auto) 0.1 Neut # (Auto) 83618 H Lymph # (Auto) 500 L [place] # (Auto) 800 Eos # (Auto) 0 Baso # (Auto) 0 RBC Morphology See below Polychromasia 1+ H Anisocytosis 2+ H Sodium Potassium Chloride Carbon Dioxide BUN Creatinine Estimated GFR BUN/Creatinine Ratio Glucose Hemoglobin A1c 5.6 Calcium Magnesium 1.9 11/10/21 03:37 WBC RBC Hgb Hct MCV MCH MCHC RDW Plt Count Neut % (Auto) Lymph % (Auto) [place] % (Auto) Eos % (Auto) Baso % (Auto) Neut # (Auto) Lymph # (Auto) [place] # (Auto) Eos # (Auto) Baso # (Auto) RBC Morphology Polychromasia Anisocytosis Sodium 138 Potassium 5.2 H Chloride 102 Carbon Dioxide 28 BUN 32 H Creatinine 1.41 H Estimated GFR 51 L BUN/Creatinine Ratio 22.7 H Glucose 185 H Hemoglobin A1c Calcium 8.3 L Magnesium 2.0 PFSH Medical History Afib (~2017) Anticoagulant long-term use (~2017) CAD (coronary artery disease) Chicken pox COPD (chronic obstructive pulmonary disease) (~2016) Current every day smoker Hearing loss ILD (interstitial lung disease) Measles Mumps Normal esophagogastroduodenoscopy (EGD) (2020) PNA (pneumonia) Psoriasis Shoulder pain (~2006) Venous stasis of lower extremity Wears glasses Surgical History Anesthesia History of arthroplasty of right knee (08/23/16) History of cardiac cath History of surgery Hx of appendectomy (~1957) Hx of colonoscopy Hx of heart artery stent (03/29/21) Hx of hernia repair Hx of skin graft (~1957) Family History Brother Cancer Grandfather Accident Grandmother Cancer Grandfather History of heart disease Grandmother Cancer Social History household members: spouse Smoking Status: Former smoker alcohol intake: current Assessment & Plan Assessment & Plan narrative: IMPRESSION ACUTE ON CHRONIC HYPOXIC RESPIRATORY FAILURE ACUTE COPD EXACERBATION. ON ANTIBIOTICS AND OXYGEN THERAPY NONOBSTRUCTIVE KIDNEY STONE. UROLOGY TO SEE OUTPATIENT REACTIVE LEUKOCYTOSIS. ON ANTIBIOTICS POSSIBLE ANEMIA OF CHRONIC DISEASE. MONITOR HEMOGLOBIN CLOSELY HYPERKALEMIA. LIKELY HEMOLYSIS. MONITOR CLOSELY ACUTE KIDNEY INJURY. MONITOR CLOSELY PLAN CONTINUE CURRENT ANTIBIOTICS FOR NOW ON ROCEPHIN AND AZITHROMYCIN FOLLOW WITH SERIAL CHEST X-RAY OR ABG IF INDICATED CONTINUE DUONEB TREATMENT PREVIOUSLY ORDERED WILL CONSULT RESPIRATORY THERAPIST FOR HOME OXYGEN WILL ORDER INCENTIVE SPIROMETER. PATIENT TO USE INCENTIVE SPIROMETER DEVICE WHILE AWAKE RESPIRATORY COELLO, HE APPEARS IMPROVED. IN REGARD TO HIS NONOBSTRUCTIVE RENAL CALCULI PATIENT WILL SEE UROLOGIST OUTPATIENT. ADDITIONAL MANAGEMENT PER CLINICAL COURSE POSSIBLE DISCHARGE IN THE MORNING IF CLINICALLY STABLE Time Spent With Patient Critical Care time: I spent a total of [] minutes of critical care time on this patient's care today; this time is exclusive of procedural time. Quality VTE Deep Vein Thrombosis/Pulmonary Embolism Present on Admission: No
[2021-11-11] VITALS: BP 109/69; PULSE 103; RESP 18; TEMP 36.5; O2SAT 96
--- NOTE | 2021-11-11 02:02 | PC.NURSE ---
Shift Note: Patient was alert and orientedx4, denies any pain/discomfort this time, no signs of distress, vital signs are stable and within acceptable limits. With O2 support by nasal cannula at 4lpm, with O2 sat at 96%. Patient uses urinal, with adequate urine output noted. +2 bipedal non-pitting edema noted, pulses are palpable. Will continue to monitor.
[2021-11-11 03:59] LABS: Add Manual Diff / Slide Review NO; Basophils Absolute Auto 0 /uL (0-100); Eosinophils Absolute Auto 0 /uL (0-450); Hematocrit 41.2 % (41-53); Hemoglobin 12.7 g/dL (13.5-17.5); Lymphocytes Absolute Auto 500 /uL (1100-4500); Lymphocytes Percent Auto 4.1 % (25-40); Mean Corpuscular HGB Conc 30.9 % (30-36); Mean Corpuscular Hemoglobin 27.8 PG (26-34); Mean Corpuscular Volume 90.1 fL (80-100); Monocytes Absolute Auto 500 /uL (0-900); Monocytes Percent Auto 4.4 % (3-14); Neutrophils Absolute Auto 10400 /uL (1500-7000); Neutrophils Percent Auto 91.5 % (50-75); Platelet Count 160 X10^3/uL (150-400); Red Blood Cell Count 4.57 X10^6/uL (4.5-5.9); Red Cell Distribution Width 23.4 % (11.6-14.8); White Blood Cell Count 11.4 X10^3/uL (4.5-11.0)
[2021-11-11 04:00] VITALS: BP 110/74; PULSE 103; RESP 17; TEMP 36.8; O2SAT 92
[2021-11-11 04:16] LABS: BUN Creatinine Ratio 27.4 (6-22); Blood Urea Nitrogen 43 mg/dL (9-20); Calcium 8.6 mg/dL (8.4-10.2); Carbon Dioxide 32 mmol/L (22-32); Chloride 98 mmol/L (98-107); Estimated Glomerular Filt Rate 45 mL/min (>60); Glucose 158 mg/dL (80-110); HEMOLYSIS < 15 (0-50); Magnesium 2.2 mg/dL (1.6-2.3); Sodium 138 mmol/L (137-145)
[2021-11-11 04:35] LABS: Potassium 5.4 mmol/L (3.4-5.1)
[2021-11-11 07:09] LABS: Anisocytosis 2+
[2021-11-11 08:23] VITALS: BP 125/80; PULSE 110
[2021-11-11] MEDS: METOPROLOL ER 25 MG TABLET PO (08:23)
[2021-11-11] MEDS: AZITHROMYCIN 250 MG TABLET 500 MG PO (08:23)
[2021-11-11] MEDS: OXYCODONE IR 5 MG TABLET PO ×2 (08:52→17:52)
[2021-11-11 08:56] VITALS: BP 130/84; PULSE 101; RESP 18; TEMP 36.8; O2SAT 93
--- NOTE | 2021-11-11 09:31 | P.DS_ITS ---
History of Present Illness History of Present Illness Date Patient Seen: 11/11/21 Chief complaint: Rt. abdominal pain Narrative: History of Present Illness History of Present Illness Date Patient Seen: 11/09/21 Time Patient Seen: 21:15 Chief complaint: Rt. abdominal pain Narrative: Shine Colbert is a 76 y.o. male with a history of atrial fibrillation anticoag ulated on Xarelto, COPD, peripheral vascular disease, osteoarthritis with left knee replacement in September and then subsequent left ankle infection presented to the ED with tachypnea, hypoxia hypertension and significant abdominal pain.? The pain was initially noted 2 days ago starting in the right flank yesterday and and moved to include the mid abdominal area in today includes the entire abdomen.? He was transferred via [facility] to [facility] for further evaluation.? On arrival he is noted to be significantly tachypneic, tachycardic, hypertensive with decreased PaO2 as well as saturations.? He endorses shortness of breath pain below waistline across back no n/v, chest pain, cough, he does endorse abdominal bloating, denies lower extremity swelling/neuropathy, no diarrhea or constipation. He is currently afebrile, blood pressure 120/86, heart rate 104, respiratory rate 18, oxygen saturation of 93% on 4 L he weighs 114.8 kg with a BMI of 35.3.? His presenting white count was 12.3, he has a left shift of almost 11,000, his D-dimer was initially 649, pH 7.29, with ABG O2 saturation of 91%, creatinine was 1.42, EGFR is 51, glucose 153 with a normal A1c, T bili was 2.1, an a proBNP of 3170.? Lipase was normal procalcitonin was also normal, UA was negative for UTI, and COVID-19 PCR is negative. Discharge Providers Provider Date of admission: 11/09/21 18:01 Discharge Date: 11/11/21 Primary care physician: Heidi Calzada PA-C Consults: 11/10/21 19:15 Consult to Respiratory Therapy Evaluate & Treat Comment: ambulatory pulse ox for home oxygen PLZ Physician Instructions: Evaluate and treat Discharge provider: Areli Lopez DO Summary Hospital Course Discharge Diagnosis: ACUTE ON CHRONIC HYPOXIC RESPIRATORY FAILURE; RESOLVING ACUTE COPD EXACERBATION.?DC ON ANTIBIOTICS AND STEROIDS NONOBSTRUCTIVE KIDNEY STONE.? UROLOGY TO SEE OUTPATIENT REACTIVE LEUKOCYTOSIS.? ON ANTIBIOTICS ? POSSIBLE ANEMIA OF CHRONIC DISEASE.? MONITOR HEMOGLOBIN CLOSELY HYPERKALEMIA.? LIKELY HEMOLYSIS.? MONITOR CLOSELY ACUTE KIDNEY INJURY.? MONITOR CLOSELY Hospital Course: THIS IS A 76-YEAR-OLD MALE ADMITTED TO THE HOSPITAL WITH REPORTED ABDOMINAL PAIN AND SIGN OF RESPIRATORY FAILURE. HE DOES HAVE A HISTORY OF COPD AND WAS TREATED FOR AN ACUTE COPD EXACERBATION. PATIENT WILL BE DISCHARGED ON DUAL ANTIBIOTIC THERAPY WELL A SHORT STEROID TAPER DOSE. PATIENT WILL BE CONTINUE ON HIS HOME INHALERS AT THIS TIME. HE HAS ALBUTEROL ORDERED NEEDED WHICH SHOULD BE FAIRLY ADEQUATE PATIENT ALSO REPORTED SOME LOWER ABDOMINAL PAIN ON ADMISSION. WHICH WAS WORKED UP BY CT SCAN A NONOBSTRUCTIVE KIDNEY STONE WAS NOTED IN THE CT. HE WILL NEED TO FOLLOW UP WITH UROLOGY OUTPATIENT. PRIMARY CARE TO ENSURE THAT PATIENT FOLLOW-UP. WOULD NEED TO CALL THE UROLOGIST'S OFFICE AND SCHEDULE FOLLOW-UP APPOINTMENT SOON POSSIBLE. OF NOTE, PRIOR TO DISCHARGE PATIENT WILL BE DC ON OXYGEN TO BE USED AT HOME BY RESPIRATORY THERAPY RECOMMENDATIONS HE WILL NEED TO FOLLOW WITH HIS PCPC TO CONTINUE HOME O2 THERAPY O2 AT 5-6 LITERS NEEDED ON EXERTION AND 2-3 AT REST ALSO THIS PROVIDER PATIENT ASKED TO STAY IN HOSPITAL OVERNIGHT BUT HE IS REFUSING ADDITIONAL MANAGEMENT WILL BE DEFERRED TO OUTPATIENT PROVIDERS AT THIS TIME. Status at Discharge Cognitive/behavioral status at discharge: oriented Functional status at discharge: independent ambulation Overall status at discharge: patient is progressing back to baseline Time Spent with Patient Time spent: Greater than 30 minutes Exam Vital Signs (past 8 hours): - 11/11/21 04:00 11/11/21 08:23 11/11/21 08:56 Temperature 98.2 F 98.3 F Pulse Rate 103 H 110 H 101 H Respiratory Rate 17 18 Blood Pressure 110/74 125/80 130/84 Pulse Oximetry 92 93 Oxygen Delivery Method Nasal Cannula Oxygen Flow Rate 5 Narrative Exam Narrative: NO ACUTE DISTRESS.? PATIENT IS ALERT ORIENTED X3. VITAL SIGNS STABLE HEAD ATRAUMATIC NORMOCEPHALIC NECK : SUPPLE WITHOUT ADENOPATHY NO CAROTID BRUITS EYE:? EOMI, PERRLA, NORMAL CONJUNCTIVA; NO JAUNDICE CHEST:? REGULAR RATE.? ? NO RUBS.? PMI IS NON DISPLACED.? NO MURMURS; NORMAL S1- S2 PULMONARY:? DECREASED BS OVER THE BASES.? MILD BIBASILAR CRACKLES NOTED; NO INCREASED DULLNESS TO PERCUSSION ABDOMEN:? SOFT.? NONTENDER.? NONDISTENDED.? BOWEL SOUNDS ARE PRESENT IN ALL 4 QUADRANTS.? NO MASS. EXTREMITIES: NO EDEMA..? NO CYANOSIS CLUBBING NOTED. NEURO:? CRANIAL NERVES 2-12 GROSSLY INTACT. NO FOCAL NEUROLOGICAL DEFICIT NOTED. MSK:? NORMAL RANGE OF MOTION FOR AGE.? NO JOINT EFFUSION. SKIN:? NORMAL FOR ETHNICITY; NO ECCHYMOSIS.? NO LESION. ? GOOD? TURGOR.; NO RASHES :? NORMAL EXTERNAL GENITALIA. PSYCH :? APPROPRIATE MOOD AND AFFECT.? ALERT AWAKE ORIENTED X3 Objective Labs Result Diagrams: 11/11/21 03:30 11/11/21 03:30 Labs: Laboratory Results - last 24 hr 11/11/21 11/11/21 03:30 03:30 WBC 11.4 H RBC 4.57 Hgb 12.7 L Hct 41.2 MCV 90.1 MCH 27.8 MCHC 30.9 RDW 23.4 H Plt Count 160 Neut % (Auto) 91.5 H Lymph % (Auto) 4.1 L [place] % (Auto) 4.4 Eos % (Auto) 0.0 L Baso % (Auto) 0.0 Neut # (Auto) 54902 H Lymph # (Auto) 500 L [place] # (Auto) 500 Eos # (Auto) 0 Baso # (Auto) 0 RBC Morphology See below Anisocytosis 2+ H Sodium 138 Potassium 5.4 H Chloride 98 Carbon Dioxide 32 BUN 43 H Creatinine 1.57 H Estimated GFR 45 L BUN/Creatinine Ratio 27.4 H Glucose 158 H Calcium 8.6 Magnesium 2.2 PFSH Medical History Afib (~2017) Anticoagulant long-term use (~2017) CAD (coronary artery disease) Chicken pox COPD (chronic obstructive pulmonary disease) (~2016) Current every day smoker Hearing loss ILD (interstitial lung disease) Measles Mumps Normal esophagogastroduodenoscopy (EGD) (2020) PNA (pneumonia) Psoriasis Shoulder pain (~2006) Venous stasis of lower extremity Wears glasses Surgical History Anesthesia History of arthroplasty of right knee (08/23/16) History of cardiac cath History of surgery Hx of appendectomy (~1957) Hx of colonoscopy Hx of heart artery stent (03/29/21) Hx of hernia repair Hx of skin graft (~1957) Family History Brother Cancer Grandfather Accident Grandmother Cancer Grandfather History of heart disease Grandmother Cancer Social History household members: spouse Smoking Status: Former smoker alcohol intake: current Discharge Plan Discharge Plan Patient Disposition: Home Nursing Discharge Comment: NEED AMBULATORY PULSE OX FOR POSSIBLE HOME OXYGEN PRIOR TO DISCHARGE PLEASE Discharge orders & Medications Prescriptions: New azithromycin 500 mg tablet 500 mg PO DAILY Qty: 7 0RF cefdinir 300 mg capsule 300 mg PO BID 10 Days Qty: 20 0RF prednisone 10 mg tablet 10 mg PO . DIRECTED Qty: 30 0RF Rx Instructions: 40MG PO X 2 DAYS 30MG PO X 2 DAYS 20MG PO X 2 DAYS 10MG PO X 2 DAYS 5MG PO X 2 DAYS Continued fluticasone propionate 50 mcg/actuation spray,suspension 2 spray Intranasal QDAY Qty: 16 3RF Breo Ellipta 100-25 mcg/dose blister with device 1 inh inhalation DAILY Qty: 30 5RF rosuvastatin 20 mg Tablet 20 mg PO DAILY 0RF acetaminophen 500 mg capsule 500 mg PO Q4H MDD Max 3000 mg per day PRN (Reason: fever or pain) Qty: 90 0RF docusate sodium 100 mg Capsule 100 mg PO BID PRN (Reason: constipation) Qty: 20 0RF Xarelto 20 mg tablet 20 mg PO DAILY Qty: 30 0RF Rx Instructions: must administer with evening meal oxycodone 5 mg tablet 5 mg PO QID PRN (Reason: Moderate Pain (Scale Score 5-6)) 0RF metoprolol succinate 25 mg tablet extended release 24 hr 25 mg PO DAILY 0RF albuterol sulfate [Ventolin HFA] 90 mcg/actuation HFA aerosol inhaler 2 puff INHALATION Q4-6H PRN (Reason: Shortness Of Breath) Qty: 8.5 5RF ferrous sulfate 325 mg (65 mg iron) tablet 325 mg PO DAILY Qty: 90 0RF Rx Instructions: Take with Vitamin C ascorbic acid (vitamin C) 500 mg tablet 500 mg PO DAILY Qty: 90 0RF Rx Instructions: Take with iron metformin 500 mg tablet,ER tim.retention 24 hr 500 mg PO BID Qty: 60 5RF Follow up/Referrals: Heidi Calzada PA-C [Primary Care Provider] - Diet/Activity/Treatments Diet: Low-fat, Low-sodium and Low-cholesterol Activity: TOLERATED Discharge Data Primary Care Provider: Heidi Calzada Quality VTE Deep Vein Thrombosis/Pulmonary Embolism Present on Admission: No
[2021-11-11 09:37] VITALS: BP 130/84; PULSE 101
--- NOTE | 2021-11-11 09:55 | PC.NURSE ---
Patient awake, alert, and pleasantly cooperative. Continue on O2 at 4L via [place], sats mid 90's. Sporadic cough noted. Notified RT regarding evaluation for home O2 placed on 11/10. Updated patients regarding plan of care, and plans to arrive after 1400.
[2021-11-11 12:00] VITALS: BP 116/85; PULSE 105; RESP 17; TEMP 36.9; O2SAT 94
[2021-11-11] MEDS: RIVAROXABAN 10 MG TABLET 20 MG PO (17:52)
--- NOTE | 2021-11-11 19:01 | PC.NURSE ---
Discharge note: Discharge instructions given to both patient and spouse, discussed importance of F/U with PMD, new medications adherence, safe O2 home use, and signs of worsening symptoms. O2 evaluation performed by RT. Awaiting for O2 company for home set up prior to discharge.
--- NOTE | 2021-11-11 19:58 | PC.NURSE ---
pt was discharge at 194 after the oxygen [employer] came in.
== END 2021-11-11 19:45 | disposition home or self-care (01) | DRG 190 ==
LOC: ED 17:07 → AC 18:03
PROVIDERS: Nurse Practitioner Family; Admitting Provider Hospitalist; Emergency Provider Emergency Medicine; PCP Physician Assistant; Referring Provider Emergency Medicine; Visit Provider Hospitalist
DX: J44.1 Chronic obstructive pulmonary disease with (acute) exacerbation (principal); J96.21 Acute and chronic respiratory failure with hypoxia; I50.33 Acute on chronic diastolic (congestive) heart failure; F11.20 Opioid dependence, uncomplicated; N17.9 Acute kidney failure, unspecified; I48.91 Unspecified atrial fibrillation; E78.5 Hyperlipidemia, unspecified; I11.0 Hypertensive heart disease with heart failure; E11.9 Type 2 diabetes mellitus without complications; D64.9 Anemia, unspecified; N20.0 Calculus of kidney; I25.10 Atherosclerotic heart disease of native coronary artery without angina pectoris; Z87.891 Personal history of nicotine dependence; Z79.01 Long term (current) use of anticoagulants; Z20.822 Contact with and (suspected) exposure to COVID-19; Z79.84 Long term (current) use of oral hypoglycemic drugs; Z95.5 Presence of coronary angioplasty implant and graft
CPT/HCPCS: 36415; 36600; 71275; 74177; 80048; 80053; 81003; 81015; 82805; 82962; 83036; 83690; 83735; 83880; 84145; 85025; 85379; 85610; 85730; 87635; 93005; 94618; 96365; 96367; 96375; 99285; C9803; A9270; J0696; J1815; J2920; J2930; Q9967

== ENCOUNTER → 2021-11-23 15:23 | Outpatient (CLI) | payer MEDICARE, OTHER, SELFPAY ==
[2021-11-09 23:34] VITALS: BMI 35.3
== END ==
PROVIDERS: PCP Physician Assistant; Visit Provider Physician Assistant
DX: R73.03 Prediabetes (principal); R31.9 Hematuria, unspecified
CPT/HCPCS: 87086

== ENCOUNTER → 2021-11-30 13:43 | Outpatient (CLI) | payer MEDICARE, OTHER, SELFPAY ==
[2021-11-09 23:34] VITALS: BMI 35.3
[2021-11-30 19:35] LABS: Add Manual Diff / Slide Review NO; Basophils Absolute Auto 100 /uL (0-100); Basophils Percent Auto 0.6 % (0-2); Eosinophils Absolute Auto 100 /uL (0-450); Eosinophils Percent Auto 1.2 % (2-4); Hematocrit 40.4 % (41-53); Hemoglobin 13.4 g/dL (13.5-17.5); Lymphocytes Absolute Auto 3700 /uL (1100-4500); Lymphocytes Percent Auto 33.6 % (25-40); Mean Corpuscular HGB Conc 33.3 % (30-36); Mean Corpuscular Hemoglobin 29.6 PG (26-34); Mean Corpuscular Volume 88.9 fL (80-100); Monocytes Absolute Auto 700 /uL (0-900); Monocytes Percent Auto 6.5 % (3-14); Neutrophils Absolute Auto 6400 /uL (1500-7000); Neutrophils Percent Auto 58.1 % (50-75); Platelet Count 226 X10^3/uL (150-400); Red Blood Cell Count 4.54 X10^6/uL (4.5-5.9); Red Cell Distribution Width 17.8 % (11.6-14.8); White Blood Cell Count 11.1 X10^3/uL (4.5-11.0)
[2021-11-30 19:49] LABS: HEMOLYSIS < 15 (0-50); Iron 124 ug/dL (49-181)
[2021-11-30 20:01] LABS: Alanine Aminotransferase 112 IU/L (<50); Albumin 3.9 g/dL (3.5-5.0); Albumin Globulin Ratio 0.9 (1.0-2.8); Alkaline Phosphatase 132 U/L (38-126); Aspartate Aminotransferase 69 IU/L (17-59); BUN Creatinine Ratio 54.3 (6-22); Bilirubin Total 0.8 mg/dL (0.2-1.3); Blood Urea Nitrogen 63 mg/dL (9-20); Calcium 9.2 mg/dL (8.4-10.2); Chloride 88 mmol/L (98-107); Estimated Glomerular Filt Rate > 60 mL/min (>60); Globulin 4.3 g/dL (1.7-4.1); Glucose 123 mg/dL (80-110); HEMOLYSIS < 15 (0-50); Potassium 3.8 mmol/L (3.4-5.1); Sodium 137 mmol/L (137-145); Total Protein 8.2 g/dL (6.3-8.2)
[2021-11-30 20:02] LABS: Percent Iron Saturation 33 % (20-50); Total Iron Binding Capacity 380 ug/dL (261-462); Transferrin 275 mg/dL (206-381)
[2021-11-30 20:07] LABS: Carbon Dioxide 38 mmol/L (22-32)
[2021-11-30 20:10] LABS: NT-proBNP (BNP-Adult 18+) 868 pg/mL (<450)
[2021-11-30 20:35] LABS: Ferritin 131 ng/mL (18-464)
== END ==
PROVIDERS: PCP Physician Assistant; Visit Provider Physician Assistant
DX: R73.03 Prediabetes (principal); I50.9 Heart failure, unspecified; D64.9 Anemia, unspecified; J44.1 Chronic obstructive pulmonary disease with (acute) exacerbation; N17.9 Acute kidney failure, unspecified
CPT/HCPCS: 80053; 82728; 83036; 83540; 83550; 83880; 85025

== ENCOUNTER → 2022-01-07 14:17 | Outpatient (CLI) | payer MEDICARE, OTHER, SELFPAY ==
[2021-11-09 23:34] VITALS: BMI 35.3
[2022-01-07 15:06] LABS: Blood Urea Nitrogen 52 mg/dL (9-20); Calcium 9.5 mg/dL (8.4-10.2); Carbon Dioxide 37 mmol/L (22-32); Chloride 94 mmol/L (98-107); Estimated Glomerular Filt Rate > 60 mL/min (>60); Glucose 110 mg/dL (80-110); HEMOLYSIS < 15 (0-50); Sodium 139 mmol/L (137-145)
== END ==
PROVIDERS: PCP Physician Assistant; Referring Provider Internal Medicine Cardiovascular Disease; Visit Provider Internal Medicine Cardiovascular Disease
DX: I50.812 Chronic right heart failure (principal)
CPT/HCPCS: 36415; 80048

== ENCOUNTER → 2022-01-12 13:36 | Outpatient (CLI) | payer MEDICARE, OTHER, SELFPAY ==
[2021-11-09 23:34] VITALS: BMI 35.3
[2022-01-12 20:44] LABS: Alanine Aminotransferase 24 IU/L (<50); Albumin 4.2 g/dL (3.5-5.0); Alkaline Phosphatase 69 U/L (38-126); Aspartate Aminotransferase 58 IU/L (17-59); BUN Creatinine Ratio 39.3 (6-22); Blood Urea Nitrogen 44 mg/dL (9-20); Calcium 9.4 mg/dL (8.4-10.2); Carbon Dioxide 36 mmol/L (22-32); Chloride 94 mmol/L (98-107); Estimated Glomerular Filt Rate > 60 mL/min (>60); Gamma Glutamyl Transpeptidase 43 U/L (15-73); Globulin 4.1 g/dL (1.7-4.1); Glucose 117 mg/dL (80-110); HEMOLYSIS 15 (0-50); Potassium 4.2 mmol/L (3.4-5.1); Sodium 139 mmol/L (137-145); Total Protein 8.3 g/dL (6.3-8.2)
[2022-01-12 21:05] LABS: Add Manual Diff / Slide Review NO; Basophils Absolute Auto 0 /uL (0-100); Basophils Percent Auto 0.4 % (0-2); Eosinophils Absolute Auto 100 /uL (0-450); Eosinophils Percent Auto 1.5 % (2-4); Hematocrit 38.8 % (41-53); Lymphocytes Absolute Auto 3000 /uL (1100-4500); Lymphocytes Percent Auto 35.6 % (25-40); Mean Corpuscular HGB Conc 33.5 % (30-36); Mean Corpuscular Volume 92.5 fL (80-100); Monocytes Absolute Auto 700 /uL (0-900); Monocytes Percent Auto 8.1 % (3-14); Neutrophils Absolute Auto 4600 /uL (1500-7000); Neutrophils Percent Auto 54.4 % (50-75); Platelet Count 188 X10^3/uL (150-400); Red Blood Cell Count 4.19 X10^6/uL (4.5-5.9); Red Cell Distribution Width 15.3 % (11.6-14.8); White Blood Cell Count 8.4 X10^3/uL (4.5-11.0)
== END ==
PROVIDERS: PCP Physician Assistant; Visit Provider Physician Assistant
DX: E78.2 Mixed hyperlipidemia (principal); I50.9 Heart failure, unspecified; R74.8 Abnormal levels of other serum enzymes
CPT/HCPCS: 80053; 82977; 85025

== ENCOUNTER → 2022-02-01 11:47 | Outpatient (CLI) | payer MEDICARE, OTHER, SELFPAY ==
[2021-11-09 23:34] VITALS: BMI 35.3
[2022-02-01 20:22] LABS: BUN Creatinine Ratio 48.3 (6-22); Blood Urea Nitrogen 57 mg/dL (9-20); Calcium 9.3 mg/dL (8.4-10.2); Carbon Dioxide 31 mmol/L (22-32); Chloride 98 mmol/L (98-107); Estimated Glomerular Filt Rate > 60 mL/min (>60); Glucose 105 mg/dL (80-110); HEMOLYSIS 19 (0-50); Potassium 4.9 mmol/L (3.4-5.1); Sodium 138 mmol/L (137-145)
== END ==
PROVIDERS: PCP Physician Assistant; Visit Provider Internal Medicine Cardiovascular Disease
DX: I50.812 Chronic right heart failure (principal)
CPT/HCPCS: 80048

== ENCOUNTER → 2022-02-11 11:23 | Outpatient (CLI) | payer MEDICARE, OTHER, SELFPAY ==
[2021-11-09 23:34] VITALS: BMI 35.3
== END ==
PROVIDERS: PCP Physician Assistant; Visit Provider Physician Assistant
DX: S81.802A Unspecified open wound, left lower leg, initial encounter (principal)
CPT/HCPCS: 87070; 87075; 87205

== ENCOUNTER → 2022-02-15 11:13 | Outpatient (CLI) | payer MEDICARE, OTHER, SELFPAY ==
[2021-11-09 23:34] VITALS: BMI 35.3
--- NOTE | 2022-02-15 | DI.CT.S_ITS ---
PROCEDURE: CT IVP A/P W/WO INDICATIONS: Ureteral cancer staging TECHNIQUE: Optional 5 mm thick noncontrast images acquired from the diaphragm to the symphysis pubis. After the administration of intravenous contrast, 5 mm thick images acquired from the diaphragm to the symphysis pubis after a 10-minute delay. 2 mm thick coronal and sagittal reformats were then performed of the kidneys and ureters. For radiation dose reduction, the following was used: automated exposure control, adjustment of mA and/or kV according to patient size. COMPARISON: [facility], CT, CT ABDOMEN PELVIS W CON, 11/09/2021, 14:37. FINDINGS: Lower thorax: Chronic interstitial changes noted both lung bases. Dense coronary artery vascular calcification present no text degenerative disc disease moderate central stenosis L 3 4 and L4-5 good reproductive Liver: Normal in size and attenuation. No contour deformity present. Biliary system: No calcified cholelithiasis or pericholecystic inflammation. No intra or extrahepatic bile duct dilatation. Pancreas: Unremarkable without mass or inflammation evident. Spleen: Normal in size and density. Adrenals: Normal morphology and density. Reproductive system: Unremarkable as visualized. Urinary system: Normal renal size and attenuation. No renal calculi, hydronephrosis, or solid mass present. Urinary bladder unremarkable. Gastrointestinal system: The bowel is unremarkable without evidence of bowel obstruction or inflammation. The stomach appears unremarkable. Multiple diverticula arise from the sigmoid colon without evidence of diverticulitis. Appendix: No findings to suggest acute appendicitis. Peritoneal spaces: No mesenteric or retroperitoneal adenopathy. No free air. No free fluid. Vasculature: Aortic atherosclerotic vascular calcification noted without evidence of aneurysm. Abdominal wall: Abdominal wall intact without evidence of ventral or inguinal hernias. Musculoskeletal: Normal bone mineralization. Degenerative disc disease and arthropathy noted in lower lumbar spine. No acute fractures. IMPRESSION: 1. Both ureters, bladder and kidneys are unremarkable. No adenopathy. 2. Degenerative changes as above. Approved by: Ronal Davies M.D. on 02/15/2022 at 17:02
== END ==
PROVIDERS: PCP Physician Assistant; Referring Provider Urology; Visit Provider Urology
DX: C66.9 Malignant neoplasm of unspecified ureter (principal); R93.41 Abnormal radiologic findings on diagnostic imaging of renal pelvis, ureter, or bladder
CPT/HCPCS: 74178

== ENCOUNTER → 2022-05-05 09:13 | Outpatient (CLI) | payer MEDICARE, OTHER, SELFPAY ==
[2021-11-09 23:34] VITALS: BMI 35.3
[2022-05-05 20:00] LABS: Add Manual Diff / Slide Review NO; Basophils Absolute Auto 100 /uL (0-100); Basophils Percent Auto 0.9 % (0-2); Eosinophils Absolute Auto 200 /uL (0-450); Hematocrit 26.7 % (41-53); Hemoglobin 8.3 g/dL (13.5-17.5); Lymphocytes Absolute Auto 1200 /uL (1100-4500); Lymphocytes Percent Auto 19.5 % (25-40); Mean Corpuscular Volume 77.4 fL (80-100); Monocytes Absolute Auto 400 /uL (0-900); Monocytes Percent Auto 6.9 % (3-14); Neutrophils Absolute Auto 4400 /uL (1500-7000); Neutrophils Percent Auto 69.7 % (50-75); Platelet Count 211 X10^3/uL (150-400); Red Blood Cell Count 3.45 X10^6/uL (4.5-5.9); Red Cell Distribution Width 19.1 % (11.6-14.8); White Blood Cell Count 6.4 X10^3/uL (4.5-11.0)
[2022-05-05 20:02] LABS: BUN Creatinine Ratio 32.8 (6-22); Blood Urea Nitrogen 40 mg/dL (9-20); Calcium 9.1 mg/dL (8.4-10.2); Carbon Dioxide 33 mmol/L (22-32); Chloride 93 mmol/L (98-107); Cholesterol 106 mg/dL (140-199); Estimated Glomerular Filt Rate > 60 mL/min (>60); Glucose 115 mg/dL (80-110); HDL Cholesterol 44 mg/dL (40-60); HEMOLYSIS < 15 (0-50); LDL Cholesterol Calculated 40 mg/dL (<100); Potassium 4.5 mmol/L (3.4-5.1); Sodium 136 mmol/L (137-145); Triglycerides 108 mg/dL (35-150)
== END ==
PROVIDERS: PCP Physician Assistant; Visit Provider Internal Medicine Cardiovascular Disease
DX: I50.812 Chronic right heart failure (principal); E78.5 Hyperlipidemia, unspecified
CPT/HCPCS: 80048; 80061; 85025

== ENCOUNTER → 2022-05-11 13:48 | Outpatient (CLI) | payer MEDICARE, OTHER, SELFPAY ==
[2021-11-09 23:34] VITALS: BMI 35.3
[2022-05-11 19:33] LABS: HEMOLYSIS < 15 (0-50); Iron 171 ug/dL (49-181)
[2022-05-11 19:35] LABS: Add Manual Diff / Slide Review NO; Basophils Absolute Auto 0 /uL (0-100); Basophils Percent Auto 0.5 % (0-2); Eosinophils Absolute Auto 200 /uL (0-450); Hematocrit 28.7 % (41-53); Hemoglobin 8.8 g/dL (13.5-17.5); Lymphocytes Absolute Auto 1600 /uL (1100-4500); Lymphocytes Percent Auto 19.7 % (25-40); Mean Corpuscular HGB Conc 30.7 % (30-36); Mean Corpuscular Hemoglobin 23.7 PG (26-34); Mean Corpuscular Volume 77.3 fL (80-100); Monocytes Absolute Auto 600 /uL (0-900); Monocytes Percent Auto 8.2 % (3-14); Neutrophils Absolute Auto 5500 /uL (1500-7000); Neutrophils Percent Auto 69.6 % (50-75); Platelet Count 260 X10^3/uL (150-400); Red Blood Cell Count 3.71 X10^6/uL (4.5-5.9); Red Cell Distribution Width 19.8 % (11.6-14.8); White Blood Cell Count 7.9 X10^3/uL (4.5-11.0)
[2022-05-11 19:41] LABS: Alanine Aminotransferase 20 IU/L (<50); Albumin Globulin Ratio 1.1 (1.0-2.8); Alkaline Phosphatase 74 U/L (38-126); Aspartate Aminotransferase 25 IU/L (17-59); BUN Creatinine Ratio 36.1 (6-22); Bilirubin Total 1.3 mg/dL (0.2-1.3); Blood Urea Nitrogen 44 mg/dL (9-20); Calcium 8.9 mg/dL (8.4-10.2); Carbon Dioxide 31 mmol/L (22-32); Chloride 95 mmol/L (98-107); Estimated Glomerular Filt Rate > 60 mL/min (>60); Globulin 3.7 g/dL (1.7-4.1); Glucose 103 mg/dL (80-110); HEMOLYSIS < 15 (0-50); Potassium 4.9 mmol/L (3.4-5.1); Sodium 135 mmol/L (137-145); Total Protein 7.7 g/dL (6.3-8.2)
[2022-05-11 19:52] LABS: Percent Iron Saturation 34 % (20-50); Total Iron Binding Capacity 510 ug/dL (261-462); Transferrin 383 mg/dL (206-381)
[2022-05-11 20:19] LABS: Prostate Specific Antigen Scrn 0.859 ng/mL (0.1-4.0)
[2022-05-11 20:24] LABS: Ferritin 13 ng/mL (18-464)
== END ==
PROVIDERS: PCP Physician Assistant; Visit Provider Physician Assistant
DX: I49.9 Cardiac arrhythmia, unspecified (principal); Z12.5 Encounter for screening for malignant neoplasm of prostate; D64.9 Anemia, unspecified; R74.8 Abnormal levels of other serum enzymes
CPT/HCPCS: 80053; 82728; 83540; 83550; 85025; G0103

== ENCOUNTER → 2022-06-15 08:52 | Outpatient (CLI) | payer MEDICARE, OTHER, SELFPAY ==
[2021-11-09 23:34] VITALS: BMI 35.3
--- NOTE | 2022-06-15 | DI.NM.S_ITS ---
PROCEDURE: NM BONE 3 PHASE RADIOPHARMACEUTICAL: 20.3 mCi Tc-99m MDP IV. INDICATIONS: Bilateral post-traumatic osteoarthritis of knee TECHNIQUE: Multiple bone scintigrams were obtained after intravenous injection of Tc-99m MDP, including flow, blood pool, and delayed images centered to the region of interest. COMPARISON: [facility] (DEXTER), CR, XR KNEE LT 3V, 05/25/2022, 15:31. FINDINGS: There is normal blood pool and flow activity within the bilateral knees. Left knee arthroplasty has been performed. Mildly increased radiotracer uptake within the distal femur and proximal tibia adjacent to the arthroplasty hardware. IMPRESSION: 1. No evidence of infection. 2. Mildly increased radiotracer uptake adjacent to the left knee arthroplasty hardware, which could represent mild loosening in the appropriate clinical setting. Dictated by: Lorena Carty M.D. on 06/15/2022 at 14:24 Transcribed by: BAIRON on 06/15/2022 at 14:26 Approved by: Lorena Carty M.D. on 06/15/2022 at 16:36
== END ==
PROVIDERS: PCP Physician Assistant; Referring Provider Orthopaedic Surgery; Visit Provider Orthopaedic Surgery
DX: M17.12 Unilateral primary osteoarthritis, left knee (principal); Z96.652 Presence of left artificial knee joint
CPT/HCPCS: 78315; A9503

== ENCOUNTER → 2022-08-17 13:33 | Outpatient (CLI) | payer MEDICARE, OTHER, SELFPAY ==
[2021-11-09 23:34] VITALS: BMI 35.3
[2022-08-17 20:08] LABS: Add Manual Diff / Slide Review NO; Basophils Absolute Auto 0 /uL (0-100); Basophils Percent Auto 0.6 % (0-2); Eosinophils Absolute Auto 100 /uL (0-450); Eosinophils Percent Auto 1.6 % (2-4); Hematocrit 43.1 % (41-53); Hemoglobin 14.1 g/dL (13.5-17.5); Lymphocytes Absolute Auto 2200 /uL (1100-4500); Lymphocytes Percent Auto 27.8 % (25-40); Mean Corpuscular HGB Conc 32.8 % (30-36); Mean Corpuscular Hemoglobin 27.8 PG (26-34); Mean Corpuscular Volume 84.7 fL (80-100); Monocytes Absolute Auto 600 /uL (0-900); Monocytes Percent Auto 8.3 % (3-14); Neutrophils Absolute Auto 4800 /uL (1500-7000); Neutrophils Percent Auto 61.7 % (50-75); Platelet Count 162 X10^3/uL (150-400); Red Blood Cell Count 5.09 X10^6/uL (4.5-5.9); Red Cell Distribution Width 18.6 % (11.6-14.8); White Blood Cell Count 7.8 X10^3/uL (4.5-11.0)
[2022-08-17 20:45] LABS: Hemoglobin A1C% w Est Avg Glu 5.9 % (4.0-6.0)
[2022-08-18 03:31] LABS: Alanine Aminotransferase 17 IU/L (<50); Albumin 4.2 g/dL (3.5-5.0); Albumin Globulin Ratio 1.1 (1.0-2.8); Alkaline Phosphatase 70 U/L (38-126); Aspartate Aminotransferase 23 IU/L (17-59); BUN Creatinine Ratio 38.5 (6-22); Bilirubin Total 1.1 mg/dL (0.2-1.3); Blood Urea Nitrogen 40 mg/dL (9-20); Calcium 9.3 mg/dL (8.4-10.2); Carbon Dioxide 30 mmol/L (22-32); Chloride 99 mmol/L (98-107); Estimated Glomerular Filt Rate > 60 mL/min (>60); Globulin 3.8 g/dL (1.7-4.1); Glucose 85 mg/dL (80-110); HEMOLYSIS < 15 (0-50); Potassium 4.3 mmol/L (3.4-5.1); Sodium 140 mmol/L (137-145)
[2022-08-18 04:05] LABS: Ferritin 25 ng/mL (18-464)
== END ==
PROVIDERS: PCP Physician Assistant; Visit Provider Physician Assistant
DX: R73.03 Prediabetes (principal); I49.9 Cardiac arrhythmia, unspecified; D64.9 Anemia, unspecified; E11.69 Type 2 diabetes mellitus with other specified complication; E66.9 Obesity, unspecified
CPT/HCPCS: 80053; 82728; 83036; 85025

== ENCOUNTER → 2022-10-26 13:22 | Outpatient (CLI) | payer MEDICARE, OTHER, SELFPAY ==
[2021-11-09 23:34] VITALS: BMI 35.3
[2022-10-26 14:54] LABS: Add Manual Diff / Slide Review NO; Basophils Absolute Auto 0 /uL (0-100); Basophils Percent Auto 0.5 % (0-2); Eosinophils Absolute Auto 100 /uL (0-450); Eosinophils Percent Auto 1.7 % (2-4); Hematocrit 42.7 % (41-53); Hemoglobin 14.5 g/dL (13.5-17.5); Lymphocytes Absolute Auto 2300 /uL (1100-4500); Lymphocytes Percent Auto 26.7 % (25-40); Mean Corpuscular HGB Conc 33.9 % (30-36); Mean Corpuscular Hemoglobin 30.6 PG (26-34); Mean Corpuscular Volume 90.3 fL (80-100); Monocytes Absolute Auto 600 /uL (0-900); Monocytes Percent Auto 7.2 % (3-14); Neutrophils Absolute Auto 5400 /uL (1500-7000); Neutrophils Percent Auto 63.9 % (50-75); Platelet Count 167 X10^3/uL (150-400); Red Blood Cell Count 4.73 X10^6/uL (4.5-5.9); Red Cell Distribution Width 13.4 % (11.6-14.8); White Blood Cell Count 8.5 X10^3/uL (4.5-11.0)
[2022-10-26 15:25] LABS: BUN Creatinine Ratio 37.2 (6-22); Blood Urea Nitrogen 45 mg/dL (9-20); Calcium 9.5 mg/dL (8.4-10.2); Carbon Dioxide 29 mmol/L (22-32); Chloride 97 mmol/L (98-107); Estimated Glomerular Filt Rate > 60 mL/min (>60); Glucose 101 mg/dL (80-110); HEMOLYSIS < 15 (0-50); Potassium 4.6 mmol/L (3.4-5.1); Sodium 137 mmol/L (137-145); Uric Acid 9.4 mg/dL (3.5-8.5)
== END ==
PROVIDERS: Family Medicine; PCP Physician Assistant; Referring Provider Internal Medicine Cardiovascular Disease; Visit Provider Internal Medicine Cardiovascular Disease
DX: M10.072 Idiopathic gout, left ankle and foot (principal); D64.9 Anemia, unspecified; I25.10 Atherosclerotic heart disease of native coronary artery without angina pectoris; I10 Essential (primary) hypertension; E11.69 Type 2 diabetes mellitus with other specified complication; E66.9 Obesity, unspecified; M10.9 Gout, unspecified; N17.9 Acute kidney failure, unspecified; R74.8 Abnormal levels of other serum enzymes
CPT/HCPCS: 36415; 80048; 84550; 85025

== ENCOUNTER → 2022-11-25 14:25 | Outpatient (CLI) | payer MEDICARE, OTHER, SELFPAY ==
[2021-11-09 23:34] VITALS: BMI 35.3
--- NOTE | 2022-11-25 | DI.ECHO.S_ITS ---
[facility]---------+ [facility] +---------+ : : [address] : : : : [id number] : : : : Phone: [phone]---------+ Echocardiogram Report + + :Name: JENNIFER CARLOS Study Date: 11/25/2022 Height: 71 in : :[facility] ReadingLocation: Weight: 220 lb : : Gender: Male BSA: 2.2 m2 : :: 1945 Age: 77 yrs BP: 117/84 mmHg: :Reason For Study: Chronic Right Heart Failure : :Ordering Physician: Gamal, : :[place] Performed By: Jocelyn Moreno : :Referring: BEATRIS YEUNG : + + Interpretation Summary 1) Normal left ventricular size and thickness with mildly to moderately reduced systolic function (EF 40-45%). 2) Poor visualization of the LV melton but suspect global hypokinesis. Interventricular septum is flattened 3) Moderately enlarged right ventricle with mildly reduced function. 4) No significant valvular abnormalities. 5) The right ventricular systolic pressure is estimated to be at least 25 mmHg based on an estimated right atrial pressure of 3 mm Hg. 6) Compared to the Echo done 11/20/2020, LVEF has decreased from 60-65% to 40- 45% on this study. Procedure: A two-dimensional transthoracic echocardiogram with color flow and Doppler was attempted. Patient did not tolerate laying on their left side and heavy breathing affected the ability to aquire quality images. Patient also declined the use of Definity to enhance echo images. Left Ventricle: The left ventricle is normal in size and wall thickness. The ejection fraction is estimated to be 40-45%. Poor visualization of the LV melton but suspect global hypokinesis. Right Ventricle: The right ventricle is moderately dilated. Right ventricular systolic function is mildly reduced. Atria: The left atrial size is normal. The right atrium appears to be mild to moderately dilated. Mitral Valve: The mitral valve is normal. There is no mitral valve stenosis. There is no mitral regurgitation noted. Aortic Valve: The aortic valve is not well visualized. There is no aortic valve stenosis. There is trace aortic regurgitation. Tricuspid Valve: The tricuspid valve is not well visualized. There is trace tricuspid regurgitation. The right ventricular systolic pressure is estimated to be at least 25 mmHg based on an estimated right atrial pressure of 3 mm Hg. Pulmonic Valve: The pulmonic valve is not well visualized. Great Vessels: The aortic root is not well visualized. The ascending aorta could not be visualized. The pulmonary is not well visualized. The IVC is of normal diameter and collapses greater than 50% with a sniff. This suggests a low right atrial pressure of 3 mm Hg. Pericardium/ Pleura There is no pericardial effusion. There is no pleural effusion. MMode/2D Measurements & Calculations RA area: 22.2 cm2 RVD1 (basal): 4.7 cm TAPSE: 2.1 cm LVAd ap4: 28.7 cm2 LVAd ap2: 26.7 cm2 LVAs ap4: 19.7 cm2 LVLd ap2: 6.9 cm LVLs ap4: 6.3 cm LVAs ap2: 18.1 cm2 LVLs ap2: 5.8 cm Doppler Measurements & Calculations TR max meghan: 238.0 cm/sec TR max P.7 mmHg Reading Physician:12:35 PM
== END ==
PROVIDERS: PCP Physician Assistant; Referring Provider Internal Medicine Cardiovascular Disease; Visit Provider Internal Medicine Cardiovascular Disease
DX: I50.812 Chronic right heart failure (principal)
CPT/HCPCS: 93306

== ENCOUNTER 2023-01-17 13:48 | Inpatient (IN) | payer MEDICARE, OTHER, SELFPAY ==
[2021-11-09 23:34] VITALS: BMI 35.3
[2022-12-28 07:46] VITALS: BMI 30.4
[2023-01-17] VITALS (11 sets, daily range): BP systolic 96–128; BP diastolic 61–93; PULSE 81–112; RESP 14–20; TEMP 35.9–36.8; O2SAT 93–98; BMI 30.4
--- NOTE | 2023-01-17 | DI.RAD.S_ITS ---
PROCEDURE: XR PELVIS 1-2V INDICATIONS: left hip intra op TECHNIQUE: Intra-operative view of the pelvis and hip acquired. COMPARISON: [facility], CR, XR PELVIS WITH LATERAL HIP LEFT, 10/26/2022, 12:48. [facility], CR, XR HIP W PEL IF DONE LT 2V, 01/17/2023, 16:53. FINDINGS: Bones: Intraoperative devices prior to placement of arthroplasty prostheses are in expected positions. No fractures or suspicious bony lesions. Soft tissues: Overlying surgical retractors are present, along with other intraoperative changes. IMPRESSION: Normal intraoperative examination. Dictated by: Leonid Tobar M.D. on 01/17/2023 at 16:16 Approved by: Leonid Tobar M.D. on 01/17/2023 at 16:16
--- NOTE | 2023-01-17 10:59 | DI.RAD.S_ITS ---
PROCEDURE: XR HIP W PEL IF DONE LT 2V INDICATIONS: left DIANNE TECHNIQUE: AP pelvis and lateral view of the left hip acquired. COMPARISON: [facility], SARAH, XR PELVIS 1-2V, 01/17/2023, 15:07. FINDINGS: Bones: Patient is status post left hip arthroplasty, with hardware components in expected positions. The hip joint appears congruent. The visualized bony structures appear intact. Soft tissues: Overlying postoperative changes are noted. No suspicious soft tissue densities. IMPRESSION: Postoperative changes demonstrating left hip arthroplasty. Dictated by: Keyla Stuart M.D. on 01/17/2023 at 17:27 Approved by: Keyla Stuart M.D. on 01/17/2023 at 17:27
[2023-01-17] MEDS: ACETAMINOPHEN 325 MG TABLET 975 MG PO (12:09)
[2023-01-17] MEDS: LACTATED RINGERS 1,000 ML 42 ML IV ×2 (12:09→15:38)
[2023-01-17] MEDS: VANCOMYCIN 1,000 MG/200 ML PIGGYBACK 200 MG IV (12:16)
[2023-01-17] MEDS: CEFAZOLIN 2 GM/100 ML PREMIX 100 ML IV ×2 (13:13→21:18)
--- NOTE | 2023-01-17 13:13 | PM.PREOP ---
Pre-operative Note Interval Note History & Physical reviewed/Exam performed by Physician: Yes Changes to H&P: No
--- NOTE | 2023-01-17 13:15 | P.OP_ITS ---
Operative Date/Time/Diagnoses Date of procedure: 01/17/23 Time of procedure: 13:30 Pre-op diagnosis: Severe left hip OA with AVN Post-op diagnosis: same Procedure & Clinicians Procedure: Left total hip arthroplasty posterior approach Same procedure as scheduled: Yes Indications: The patient has had progressively worsening left hip pain with radiographic changes consistent with arthritis and avascular necrosis. He has severe pain to the extent that he has been essentially wheelchair bound for about a year. It has been getting progressively worse. Non-operative management has failed and the patient has requested total hip replacement. The risks, benefits and alternatives to surgery were discussed with the patient prior to proceeding. Risks discussed included, but were not limited to, failure to relieve pain, leg length discrepancy, dislocation, stiffness, infection, nerve damage, deep venous thrombosis, pulmonary embolism, stroke, coma, heart attack, permanent paralysis and , as well as the potential need for eventual revision of the prosthetic. Surgeon: Saskia Schneider Hotel Receptionist: Thomas Adamson Anesthesia Type: General Operative Notes Findings: Soft bone, severe osteoarthritis, adequate stability Closure Type: primary Specimen(s): none sent Prosthetic devices, grafts, tissues, transplants, or devices: Schneider and nephew R3 56, neutral poly liner, two screws 6.5mm, 36 by +4 cobalt, size 2 polar stem with collar, Estimated Blood Loss (mL): 500 Blood products transfused: none Procedure in detail: The patient was seen in the pre-operative area, where the patient identified the left hip as the operative site and this was marked with my initials. The patient received pre-operative antibiotics and was taken to the operating room and placed on the operative table in the right lateral decubitus position after satisfactory anesthesia. A multimedia coordinator out was performed. The left leg was prepared from the ankle to the iliac crest with ChloroPrep in the usual fashion and draped through sterile drapes. The hip was approached through an approximately 20 cm incision centered over the greater trochanter and curving gently posteriorly as it went proximally. This was carried sharply to the fascia ave, which was divided and retracted with a self retaining retractor. The trochanteric bursa was excised with care being taken to avoid the sciatic nerve, which was identified and protected throughout the case. The short external rotators were incised and the capsulomuscular flap was raised and tagged for later repair. The patient had fairly dense adhesions in his bursa and also the tissue was adhesed down to the trochanter. There was somewhat more bleeding than normal but we were very careful with hemostasis with a Aquamantys. I also opened bone wax for some bony bleeding. The hip was dislocated, and a femoral neck osteotomy performed approximately 15 mm above the lesser trochanter. Retractors were placed around the femur. The canal was opened with a box cutting osteotome, followed by a T handled reamer and a lateralizing reamer. The chili pepper broach was then used, followed by sequential broaching until there was good stability of the broach in the femur. Retractors were placed to expose the acetabulum. The labrum and central soft tissues were removed. Reaming was performed initially going up in 2 mm increments, then 1 mm increments until good bite was obtained with an odd sized reamer. The cup 1 mm larger than the last reamer was then inserted using the appropriate anteversion guides. It was further stabilized with screw. A trial neutral liner was placed. The broach was placed in the canal. A trial head and neck were then placed and the hip relocated and checked for leg length and stability. An intraoperative film confirmed the component position and no evidence of fracture. The cup had reasonable stability but it looked like it was a little horizontal. I readjusted the cup by removing a screw tamping on it and then I further secured it with 2 screws. I then replaced the trial neutral liner and the polar stem and neck for a standard offset and did a repeat trial reduction. The patient was stable in the position of sleep, of squatting, and could be put through a range of motion with 45 degrees internal rotation without dislocation. At 90 degrees flexion, internal rotation to 70 was possible before dislocation. This was felt to be satisfactory and the appropriate components were opened, and the trials were removed. The acetabular liner was impacted into position. The final stem was then impacted into the prepared femoral canal. A brief Betadine soak was performed while trialing with head options. The hip was meticulously irrigated with normal saline. Finally the femoral head was impacted onto the stem. The acetabulum was cleared of all material and the hip relocated one final time. The capsulomuscular flap was then repaired to the greater trochanter though an awl hole using the tag sutures. The short external rotators were repaired with a nonabsorbable suture. The fascia ave was closed with Vicryl. The subcutaneous layer was closed with barbed sutures and surgical glue. An Aquacel Ag dressing was applied and the patient was taken to recovery having tolerated the procedure well. Complications: none Post-operative Condition: stable Disposition: Acute Care Plan for aftercare: The patient will be maintained on a standard total hip replacement protocol with weight bearing as tolerated and posterior hip precautions. The patient will receive Aspirin and sequential compression devices for DVT prophylaxis. The patient will be discharged home when safe for the home environment. The patient has multiple medical problems and clearly meets the criteria for inpatient surgery. He is felt to be high risk from a cardiac standpoint but underwent extensive stabilization medical optimization for more than 6 months prior to surgery. He has a arrhythmia, asthma, COPD, coronary artery disease and a history of congestive heart failure and is oxygen dependent. His chronic right- sided heart failure and a history of a heart stent. He also has paroxysmal atrial fibrillation. He would strongly like to be discharged to home when stable. I anticipate he will require a several day hospital stay and I have consulted the hospitalist for helping manage his multiple medical problems.
[2023-01-17] MEDS: TRANEXAMIC ACID 1,000 MG VIAL 2000 MG INJ (14:34)
[2023-01-17] MEDS: BUPIVACAINE 0.25% (PF) 60 ML, EPINEPHrine 0.3 MG INJ (14:36)
[2023-01-17] MEDS: BUPIVACAINE LIPOSOME 266 MG/20 ML VIAL INJ (14:37)
--- NOTE | 2023-01-17 14:51 | SUR.OPER ---
Lateral on padded OR bed. Gel axillary roll. Arms secured on padded armboard with pillow supporting top arm. Padded hip positioner braces x4 - anterior and posterior chest and pelvis. Additional gel pad used anterior pelvis. Gel pad under bottom leg from knee to foot and secured with tape over sheet.
[2023-01-17] MEDS: OXYCODONE IR 5 MG TABLET PO (16:55)
[2023-01-17] MEDS: ONDANSETRON 4 MG/2 ML INJ IV (16:55)
[2023-01-17] MEDS: LACTATED RINGERS 1,000 ML 100 ML IV (18:12)
--- NOTE | 2023-01-17 18:33 | PC.NURSE ---
Pt arrived via PACU, rouses but easily falls asleep. [place]. SCD's on IV fluids per orders. surgical site intact. VSS.
[2023-01-17] MEDS: ACETAMINOPHEN 325 MG TABLET 650 MG PO (21:17)
[2023-01-17] MEDS: ASPIRIN EC 81 MG TABLET PO (21:17)
[2023-01-17] MEDS: OXYCODONE IR 10 MG TABLET PO (21:18)
[2023-01-17] MEDS: DOCUSATE 100 MG CAPSULE PO (21:18)
[2023-01-18] MEDS: OXYCODONE IR 10 MG TABLET PO ×4 (01:49→22:30)
[2023-01-18] MEDS: CEFAZOLIN 2 GM/100 ML PREMIX 100 ML IV (04:11)
[2023-01-18 05:59] LABS: Add Manual Diff / Slide Review NO; Basophils Absolute Auto 0 /uL (0-100); Basophils Percent Auto 0.2 % (0-2); Eosinophils Absolute Auto 0 /uL (0-450); Hematocrit 34.5 % (41-53); Hemoglobin 11.7 g/dL (13.5-17.5); Lymphocytes Absolute Auto 900 /uL (1100-4500); Lymphocytes Percent Auto 7.2 % (25-40); Mean Corpuscular HGB Conc 33.7 % (30-36); Mean Corpuscular Hemoglobin 31.7 PG (26-34); Mean Corpuscular Volume 93.9 fL (80-100); Monocytes Absolute Auto 1100 /uL (0-900); Monocytes Percent Auto 8.7 % (3-14); Neutrophils Absolute Auto 10500 /uL (1500-7000); Neutrophils Percent Auto 83.9 % (50-75); Platelet Count 137 X10^3/uL (150-400); Red Blood Cell Count 3.68 X10^6/uL (4.5-5.9); Red Cell Distribution Width 14.1 % (11.6-14.8); White Blood Cell Count 12.6 X10^3/uL (4.5-11.0)
[2023-01-18 06:08] LABS: Alanine Aminotransferase 20 IU/L (<50); Albumin 3.3 g/dL (3.5-5.0); Alkaline Phosphatase 53 U/L (38-126); Aspartate Aminotransferase 31 IU/L (17-59); BUN Creatinine Ratio 33.6 (6-22); Bilirubin Total 1.1 mg/dL (0.2-1.3); Blood Urea Nitrogen 37 mg/dL (9-20); Calcium 8.3 mg/dL (8.4-10.2); Carbon Dioxide 31 mmol/L (22-32); Chloride 97 mmol/L (98-107); Estimated Glomerular Filt Rate > 60 mL/min (>60); Globulin 3.4 g/dL (1.7-4.1); Glucose 137 mg/dL (80-110); HEMOLYSIS < 15 (0-50); Potassium 5.1 mmol/L (3.4-5.1); Sodium 133 mmol/L (137-145); Total Protein 6.7 g/dL (6.3-8.2)
[2023-01-18] MEDS: ALBUTEROL 2.5 MG/3 ML NEB (ADULT) INH (06:56)
[2023-01-18] MEDS: BUDESONIDE 0.5 MG/2 ML NEB INH (06:58)
--- NOTE | 2023-01-18 08:04 | PM.PNPO.1 ---
Subjective Subjective Date Patient Seen: 01/18/23 Time Patient Seen: 08:04 Interval history: Patient's pain is [id number]. No fever or chills. No nausea or vomiting. Exam Vital Signs (past 8 hours): Oxygen Delivery Method Nasal Cannula Oxygen Flow Rate 2 Narrative Exam Narrative: 77-year-old male resting comfortably in bed in no apparent distress. Left hip dressing is clean, dry and intact. Motor functions intact distal left lower extremity. Const General: cooperative and comfortable Nutritional Appearance: average body habitus Orientation: alert Resp Effort & Inspection: normal respiratory effort and able to speak in complete sentences Objective Labs 01/18/23 05:47 01/18/23 05:47 Labs: Laboratory Results - last 24 hr 01/18/23 01/18/23 05:47 05:47 WBC 12.6 H RBC 3.68 L Hgb 11.7 L Hct 34.5 L MCV 93.9 MCH 31.7 MCHC 33.7 RDW 14.1 Plt Count 137 L Neut % (Auto) 83.9 H Lymph % (Auto) 7.2 L [place] % (Auto) 8.7 Eos % (Auto) 0.0 L Baso % (Auto) 0.2 Neut # (Auto) 22077 H Lymph # (Auto) 900 L [place] # (Auto) 1100 H Eos # (Auto) 0 Baso # (Auto) 0 Sodium 133 L Potassium 5.1 Chloride 97 L Carbon Dioxide 31 BUN 37 H Creatinine 1.10 Estimated GFR > 60 BUN/Creatinine Ratio 33.6 H Glucose 137 H Calcium 8.3 L Total Bilirubin 1.1 AST 31 ALT 20 Alkaline Phosphatase 53 Total Protein 6.7 Albumin 3.3 L Globulin 3.4 Albumin/Globulin Ratio 1.0 [facility] Medical History Afib (~2017) CAD (coronary artery disease) Chicken pox COPD (chronic obstructive pulmonary disease) (~2016) Current every day smoker Hearing loss History of COVID-19 (~06/2022) ILD (interstitial lung disease) Measles Mumps Normal esophagogastroduodenoscopy (EGD) (2020) Osteoarthritis PNA (pneumonia) Psoriasis Shoulder pain (~2006) Venous stasis of lower extremity Surgical History Anesthesia History of arthroplasty of right knee (08/23/16) History of cardiac cath History of surgery History of total left knee replacement (10/06/21) Hx of appendectomy (~1957) Hx of colonoscopy (07/2022) Hx of heart artery stent (03/29/21) Hx of hernia repair Hx of skin graft (~1957) Family History Brother Cancer Grandfather Accident Grandmother Cancer Grandfather History of heart disease Grandmother Cancer Social History household members: spouse Smoking Status: Former smoker alcohol intake: former Assessment & Plan Post-op Postoperative Procedures: Procedures Operation Date: 01/17/23 13:15 Actual Procedure Side Surgeon p Total Hip Arthroplasty Left Saskia Schneider MD Postoperative day: 1 Postoperative status: doing well Postoperative status narrative: Stable status post left total hip arthroplasty posterior approach Postoperative plan: routine post-op care Postoperative plan narrative: Weightbearing as tolerated, posterior hip precautions Mobilize with physical therapy. Likely discharge home today or tomorrow Quality VTE Deep Vein Thrombosis/Pulmonary Embolism Present on Admission: No
[2023-01-18] MEDS: TORSEMIDE 10 MG TABLET 20 MG PO (09:09)
[2023-01-18] MEDS: allopurinoL 100 MG TABLET 300 MG PO (09:09)
[2023-01-18] MEDS: MAGNESIUM OXIDE 400 MG TABLET 500 MG PO (09:09)
[2023-01-18 09:11] VITALS: BP 116/76; PULSE 138; RESP 20; O2SAT 93
[2023-01-18] MEDS: METOPROLOL ER 25 MG TABLET PO (09:11)
[2023-01-18] MEDS: DOCUSATE 100 MG CAPSULE PO ×2 (09:11→21:29)
[2023-01-18] MEDS: ATORVASTATIN 20 MG TABLET 40 MG PO (09:11)
[2023-01-18] MEDS: ASPIRIN EC 81 MG TABLET PO ×2 (09:11→21:28)
[2023-01-18] MEDS: PANTOPRAZOLE DR 40 MG TABLET PO (09:11)
[2023-01-18] MEDS: SPIRONOLACTONE 25 MG TABLET PO (09:12)
[2023-01-18] MEDS: ASCORBIC ACID 500 MG TABLET PO (09:12)
--- NOTE | 2023-01-18 09:16 | PT.IIE ---
Current Diagnoses Unilateral primary osteoarthritis, left hip (01/17/23) Pain in left hip (01/17/23) Surgery Performed Operation Date: 01/17/23 13:15 Actual Procedures p Total Hip Arthroplasty(Left) - Saskia Schneider MD Surgical History (Last Reviewed 01/18/23 @ 08:06 by Thomas Adamson PA-C) Anesthesia History of arthroplasty of right knee (08/23/16) History of cardiac cath History of surgery History of total left knee replacement (10/06/21) Hx of appendectomy (~1957) Hx of colonoscopy (07/2022) Hx of heart artery stent (03/29/21) Hx of hernia repair Hx of skin graft (~1957) Medical History (Last Reviewed 01/18/23 @ 08:06 by Thomas Adamson PA-C) Afib (~2017) CAD (coronary artery disease) Chicken pox COPD (chronic obstructive pulmonary disease) (~2016) Current every day smoker Hearing loss History of COVID-19 (~06/2022) ILD (interstitial lung disease) Measles Mumps Normal esophagogastroduodenoscopy (EGD) (2020) Osteoarthritis PNA (pneumonia) Psoriasis Shoulder pain (~2006) Venous stasis of lower extremity Physical Therapy Inpatient Evaluation/Re-Eval M1 PT/OT-IP Prior Functional Status Start: 01/18/23 08:33 Freq: NEEDED Status: Active Protocol: Document 01/18/23 08:35 AMB (Rec: 01/18/23 09:15 AMB [id number]) Medical Review Prior Functional Status Medical History Reviewed Yes Communication WFL Mobility and Gait pt was in manual w/c with FWW at home with spouse Social History Household Members spouse Living Arrangements House Number of Floors (Floors) 3 or More Floors Number of Stairs To Enter/Railing? 1 small 3 step to enter, pt lives on main floor, does not need to go up and down stairs Home Environment High Toilet Home Equipment Front Wheel Walker Additional Social History Comment lives on [place] M2 PT-IP Current Condition Start: 01/18/23 08:33 Freq: NEEDED Status: Active Protocol: Document 01/18/23 08:35 AMB (Rec: 01/18/23 09:15 AMB [id number]) Physical Therapy Current Condition Current Condition Evaluation Date 01/18/23 Treatment Diagnosis L posterior DIANNE Onset Date 8/1/23 M3 PT-IP Subjective Start: 01/18/23 08:33 Freq: NEEDED Status: Active Protocol: Document 01/18/23 08:35 AMB (Rec: 01/18/23 09:15 AMB [id number]) Subjective Physical Therapy Visit Type Type Initial Evaluation Visit Start Time 07:45 Visit Stop Time 08:20 Total Visit Minutes 35 Physical Therapy Visit Comments Patient Comments Pt would like to eat breakfast Therapy Pain Assessment Pain When Pain Assessed At Rest Pain Present Pain Present Pain Reported M4 PT-IP Mobility and Gait Start: 01/18/23 08:33 Freq: NEEDED Status: Active Protocol: Document 01/18/23 08:35 AMB (Rec: 01/18/23 09:15 AMB [id number]) PT-Bed Mobility Assessment Rolling Level of Assist Minimal Assistance,2 Person Assistance Supine to Sit Supine to Sit Minimal Assistance,2 Person Assistance,Head of Bed Elevated,Bedrails Scooting Scooting to Edge of Bed Moderate Assistance PT-Transfer Assessment Sit to and From Stand Sit to and from Stand Minimal Assistance,1 Person Assistance,Use of Upper Extremities Equipment Transfer Assistive Device Bed Rail,Gait Belt Transfers Transfer Destination Chair Transfer Technique Stand Step Pivot Transfer Ability Level of Assist Contact Guard Assistance,2 Person Assistance Comments Mobility Comments Explained posterior precautions, pt with difficulty moving L LE in bed, was able to move. SpO2 87at rest as pt was not on O2 when entered room. When 3L via nasal cannula, 91 at rest. Pt has baseline shoulder/knee/ hip pain that have made mobility challenging baseline. Pt needed extra time for all mobility and generally Kushal, verbal cues for how to roll/ pivot while maintaining posterior hip precautions. Pt does not put full weight through the L LE, tends to just put L toes on the ground, hip flexion contracture limits. SpO2 93 with mobility on 3L. Gait Assessment Gait Gait Assistance Required: Minimum Assistance,2 Person Assist Distance (Feet) 4 Able to Maintain Weight Bearing Status Yes During Gait Assistive Devices Assistive Device Gait Belt,Front Wheeled Walker Gait Deviations General Gait Pattern Antalgic,Decreased Stride Length,Wide Based Gait Factors Limiting Gait Function Factors Limiting Gait Function Decreased Activity Tolerance, Decreased Strength,Limited Range of Motion,Pain,Poor Balance Comments Gait Comments Pt with significant difficulty weightbearing through shoulders, needed verbal cues to stay upright and not reach for lower bar on walker. Pt again performed more toe touch weightbearing due to contracture/habit from having walked like this for one year, did not put heel down with ambulation, more of a hopping gait pattern. Stair Climbing Assessment Comments Stair Climbing Comments did not attempt M5 PT-IP Objective Assessments Start: 01/18/23 08:33 Freq: NEEDED Status: Active Protocol: Document 01/18/23 08:35 AMB (Rec: 01/18/23 09:15 AMB [id number]) Orientation Orientation/Cognition Level of Alertness Alert Gross Range of Motion Lower Extremity ROM Assessment Left Impaired Impairments unable to attain neutral hip extension Strength Lower Extremity Strength Assessment Left Impaired Sensation Assessment Sensation Gross Sensation WNL M6 PT-IP Treatment Start: 01/18/23 08:33 Freq: NEEDED Status: Active Protocol: Document 01/18/23 08:35 AMB (Rec: 01/18/23 09:15 AMB [id number]) Physical Therapy Treatment Education Education Provided Precautions,Weight Bearing Status,Post-Op Packet M7 PT-IP Assessment and Plan Start: 01/18/23 08:33 Freq: NEEDED Status: Active Protocol: Document 01/18/23 08:35 AMB (Rec: 01/18/23 09:15 AMB [id number]) PT Summary Assessment and Plan Potential Rehabilitation Potential Fair Status of Condition at Evaluation Evolving Summary Impairments Pain,ROM,Strength,Balance,Gait Assessment Summary Shine had a L posterior DIANNE on 01/17. He [place] on [address] with his [place] and has been using a manual w/c for the past year after TKA. He struggled with bed mobility, but feels that he has been struggling with bed mobility for the past year. He needed 1-2 person assist with generally Kushal for all transfers and the short period of time he was ambulatory. Significant concern for safety at home, but patient very adamant that he has been managing at home like this for a year. Would like to perform some amount of caregiver training before clearing for d/c home to further assess safety. Pt is hoping to d/c home on 01/19, but if not safe at that time could consider SNF. Goals Bed Mobility Goal Standby Assistance Transfer Goal Standby Assistance,Front Wheeled Walker Gait Goal Standby Assistance Gait Distance 100 Days to Meet Goals 5 Frequency of Treatment Frequency Of Treatment Twice a Day Treatment Plan Physical Therapy Treatment Plan Bed Mobility Training,Transfer Training,Gait Training, Therapeutic Exercise,Post Op Education,Neuromuscular Re-ed Other Recommendations and Next Treatment Instruct in HEP, review Focus posterior hip precuations, advance bed mobility and gait Precautions Posterior Hip Precautions No Hip Flexion > 90 degrees,No Hip Internal Rotation,No Hip Adduction Weight Bearing Status Weight Bearing Status Weight Bear as Tolerated Recommendations To Nursing Amount of Assist Needed 2 Person Assist Discharge Recommendations PT Discharge Recommendations Home Health,Home vs SNF Transportation Needs at Discharge Private Vehicle
[2023-01-18 10:24] VITALS: O2SAT 94
--- NOTE | 2023-01-18 10:50 | PM.CN ---
History of Present Illness Consult details Date Patient Seen: 01/18/23 Time Patient Seen: 10:00 Chief complaint: OPB Reason for consult: assistance with medical management for complex chronic conditions Requesting provider: Saskia Schneider Narrative: Mr. Erickson is a 77 year old male with a PMH of HTN,HLD,paroxysmal afib, COPD/ILD with chronic hypoxemic respiratory failure, prior PUD, pre-DM, chronic R heart failure (presume secondary to lung disease) who underwent left total hip arthorplasty yesterday with orthopedics. Medicine was consulted for assistance with medical management. Patient denies complaints this morning including shortness of breath, cough, chest pain, lower extremity edema. He is currently on his usual amount of home O2 at 3L. He has minimal hip pain today, improved since yesterday after surgery. Meds Home Medications and Allergies Home Medications Medication Instructions Recorded Confirmed Type albuterol sulfate 90 mcg/actuation 2 puff inhalation Q4-6H PRN 09/16/21 01/17/23 Rx aerosol inhaler (Ventolin HFA) Shortness Of Breath #8.5 grams ascorbic acid (vitamin C) 500 mg 500 mg PO DAILY #90 tabs 09/16/21 01/17/23 Rx tablet metoprolol succinate 25 mg 25 mg PO DAILY 09/16/21 01/17/23 History tablet,extended release 24 hr rosuvastatin 20 mg tablet 20 mg PO DAILY 09/30/21 01/17/23 History magnesium oxide 400 mg (241.3 mg 500 mg PO DAILY 11/23/21 01/17/23 History magnesium) tablet torsemide 20 mg tablet 20 mg PO DAILY #90 tabs 03/08/22 12/29/22 Rx oxycodone 5 mg tablet 5 mg PO BID PRN pain #14 tabs 06/07/22 01/17/23 Rx semaglutide 0.25 mg or 0.5 mg (2 0.5 mg SUBCUT QWEEK 10/20/22 01/17/23 History mg/3 mL) subcutaneous pen injector (Ozempic) allopurinol 300 mg tablet 300 mg PO DAILY #90 tabs 10/31/22 01/17/23 Rx acetaminophen 500 mg capsule 1,000 mg PO BID 12/29/22 01/17/23 History fluticasone propionate 50 1 - 2 spray intranasal QDAY PRN 12/29/22 01/17/23 History mcg/actuation nasal Seasonal allergies spray,suspension pantoprazole 40 mg tablet,delayed 40 mg PO DAILY 12/29/22 01/17/23 History release spironolactone 25 mg tablet 25 mg PO DAILY 12/29/22 01/17/23 History triamcinolone acetonide 0.05 % 1 applic topical BID #80 grams 12/29/22 Rx topical ointment fluticasone 250 mcg-salmeterol 50 1 ea PO BID #180 ea 01/17/23 01/17/23 Rx mcg/dose blistr powdr for inhalation Allergies Allergy/AdvReac Type Severity Reaction Status Date / Time No Known Drug Allergies Allergy Verified 01/17/23 11:43 Review of Systems Review of Systems Narrative: All other systems reviewed with the patient and are negative unless otherwise stated. Exam Vital Signs (past 8 hours): - 01/18/23 10:24 Pulse Oximetry 94 Oxygen Delivery Method Nasal Cannula Oxygen Flow Rate 3 Oxygen Delivery Method Nasal Cannula Oxygen Flow Rate 3 Narrative Exam Narrative: General:? Patient is well developed and well nourished, in no distress at this time. On 3 L via NC. HEENT:? Normocephalic, atraumatic, extraocular muscles intact, oral pharynx is clear and mucous membranes are moist. Neck: supple and symmetric, trachea is midline, no cervical adenopathy. Negative for JVD Chest:? Normal AP diameter and contour without kyphoscoliosis, no tachypnea, equal chest rise bilaterally. Lungs:? CTA b/l no wheezing rhonchi or rales. Cardio:?RRR no m/r/g. Abdomen: S NT ND. No CVA tenderness. Musculoskeletal:? Muscle strength and tone are equal within normal limits. Left hip dressing c/d/i. Extremities: No edema or joint effusions. No cyanosis or clubbing. Skin:? Pale,? Warm to touch,dry and intact without rashes. Neuro:? Alert and orientated x3,? sensation to touch intact in all extremities, no gross deficits noted of cranial nerves. Psych:? Patient has a well-kept appearance, appropriate affect, mental status attitude thought context and judgment are appropriate for age. Objective Labs 01/18/23 05:47 01/18/23 05:47 Labs: Laboratory Results - last 24 hr 01/18/23 01/18/23 05:47 05:47 WBC 12.6 H RBC 3.68 L Hgb 11.7 L Hct 34.5 L MCV 93.9 MCH 31.7 MCHC 33.7 RDW 14.1 Plt Count 137 L Neut % (Auto) 83.9 H Lymph % (Auto) 7.2 L [place] % (Auto) 8.7 Eos % (Auto) 0.0 L Baso % (Auto) 0.2 Neut # (Auto) 67838 H Lymph # (Auto) 900 L [place] # (Auto) 1100 H Eos # (Auto) 0 Baso # (Auto) 0 Sodium 133 L Potassium 5.1 Chloride 97 L Carbon Dioxide 31 BUN 37 H Creatinine 1.10 Estimated GFR > 60 BUN/Creatinine Ratio 33.6 H Glucose 137 H Calcium 8.3 L Total Bilirubin 1.1 AST 31 ALT 20 Alkaline Phosphatase 53 Total Protein 6.7 Albumin 3.3 L Globulin 3.4 Albumin/Globulin Ratio 1.0 PFSH Medical History Afib (~2017) CAD (coronary artery disease) Chicken pox COPD (chronic obstructive pulmonary disease) (~2016) Current every day smoker Hearing loss History of COVID-19 (~06/2022) ILD (interstitial lung disease) Measles Mumps Normal esophagogastroduodenoscopy (EGD) (2020) Osteoarthritis PNA (pneumonia) Psoriasis Shoulder pain (~2006) Venous stasis of lower extremity Surgical History Anesthesia History of arthroplasty of right knee (08/23/16) History of cardiac cath History of surgery History of total left knee replacement (10/06/21) Hx of appendectomy (~1957) Hx of colonoscopy (07/2022) Hx of heart artery stent (03/29/21) Hx of hernia repair Hx of skin graft (~1957) Family History Brother Cancer Grandfather Accident Grandmother Cancer Grandfather History of heart disease Grandmother Cancer Social History household members: spouse Tobacco & Substance Use Smoking Status: Former smoker alcohol intake: former Assessment & Plan Assessment & Plan narrative: 1. chronic COPD / ILD with chronic hypoxic respriatory failure - no acute exacerbation, continue pulmicort and albuterol prn - respiratory therapy following 2. paroxysmal atrial fibrillation with RVR - not on chronic AC (? 2/2 peptic ulcer). - rate a bit fast today, will increase metoprolol to BID, no current symptoms 3. HTN, chronic - continue home medications 4. R heart failure - continue home torsemide and spironolactone 5. Pre-DM - okay to continue home oral therapies, glucose 137 on AM labs 6. Obesity - -The patient is at much higher risk for medical and surgical complications because of his obesity This increases the difficulty and complexity of medical and surgical interventions and increases the chances of poor outcomes such as morbidity and mortality. 7. S/p Left DIANNE - management per ortho - DVT ppx with ASA BID per primary team Code: Full, Proxy: Klever Erickson, I have utilized all available immediate resources to obtain, update, or review the patient's current medications. Medicine will continue to follow until discharge given medical complexity and high risk of medical and surgical complications. Additional history obtained from discussion with patient's orthopedic surgeon at the time of consultation. Discussed with case management staff and patient today.
[2023-01-18 10:59] VITALS: PULSE 110
--- NOTE | 2023-01-18 11:03 | OT.IP.EVAL ---
Current Diagnoses Unilateral primary osteoarthritis, left hip (01/17/23) Pain in left hip (01/17/23) Surgery Performed Operation Date: 01/17/23 13:15 Actual Procedures p Total Hip Arthroplasty(Left) - Saskia Schneider MD Past Medical History (Last Reviewed 01/18/23 @ 08:06 by Thomas Adamson PA-C) Afib (~2017) CAD (coronary artery disease) Chicken pox COPD (chronic obstructive pulmonary disease) (~2016) Current every day smoker Hearing loss History of COVID-19 (~06/2022) ILD (interstitial lung disease) Measles Mumps Normal esophagogastroduodenoscopy (EGD) (2020) Osteoarthritis PNA (pneumonia) Psoriasis Shoulder pain (~2006) Venous stasis of lower extremity Surgical History (Last Reviewed 01/18/23 @ 08:06 by Thomas Adamson PA-C) Anesthesia History of arthroplasty of right knee (08/23/16) History of cardiac cath History of surgery History of total left knee replacement (10/06/21) Hx of appendectomy (~1957) Hx of colonoscopy (07/2022) Hx of heart artery stent (03/29/21) Hx of hernia repair Hx of skin graft (~1957) Occupational Therapy Inpatient Evaluation/Re-Eval M1 PT/OT-IP Prior Functional Status Start: 01/18/23 11:14 Freq: NEEDED Status: Active Protocol: Document 01/18/23 11:14 [facility] (Rec: 01/18/23 11:52 [facility] [id number]) Medical Review Prior Functional Status Medical History Reviewed Yes Communication WFL Mobility and Gait Pt was in manual w/c with FWW at home with spouse. Pt states would sit in his wc and push his FWW so able to get close to the bathroom so able to transfer with his FWW. Activities of Daily Living and IADL's Occasionally pt would ask his to assist for buttoning needs. Social History Household Members spouse Living Arrangements House Number of Floors (Floors) 3 or More Floors Number of Stairs To Enter/Railing? 1 small 3 step to enter, pt lives on main floor, does not need to go up and down stairs Home Environment High Toilet Home Equipment Front Wheel Walker,Straight Cane,Manual Wheelchair,Shower Seat with Backrest,Hand Held Shower,Photocomposing Keyboard Operator,Grab Bars In Shower Additional Social History Comment lives on [address] Pt states institution director from PT that their daughter and son in law to come Monday to assist for the weekend. M2 OT-IP Current Condition Start: 01/18/23 11:14 Freq: Status: Active Protocol: Document 01/18/23 11:14 [facility] (Rec: 01/18/23 11:52 [facility] [id number]) Occupational Therapy Current Condition Current Condition Evaluation Date 01/18/23 Treatment Diagnosis S/P L DIANNE Diagnosis Onset Date 01/17/23 Post Operative Precautions Posterior Hip Precautions No Hip Flexion > 90 degrees,No Hip Internal Rotation,No Hip Adduction M3 OT- IP Subjective and Pain Start: 01/18/23 11:14 Freq: Status: Active Protocol: Document 01/18/23 11:14 [facility] (Rec: 01/18/23 11:52 [facility] [id number]) OT- Subjective Occupational Therapy Visit Type Type Initial Evaluation Visit Start Time 10:30 Visit Stop Time 11:03 Total Visit Minutes 33 Occupational Therapy Visit Comments Patient Comments Pt agreed to work with OT. Patient/Caregiver Goals Pt adamant of going home. OT Pain Assessment Pain When Pain Assessed At Rest Pain Present Pain Present Pain Reported Location Left Hip Intensity 3 Scale Used Numeric (0 - 10) M4 OT- IP ADL's Start: 01/18/23 11:14 Freq: Status: Active Protocol: Document 01/18/23 11:14 [facility] (Rec: 01/18/23 11:52 [facility] [id number]) OT ADL-Grooming Comments OT Grooming Comments Pt states did after breakfast. OT ADL-Oral Care Comments Oral Care Comments Pt states did prior. Pt states at home sits in his manual wc and lean forwards to the sink . Educated to pt best to spit into a cup or be sure the height on his wc is high enough so when leaning forwards that pt does not lean greater than 70 degrees. OT ADL-Dressing General Eval Lower Body Dressing Ability Maximum Assistance,Total Assistance Comments OT Dressing Comments Having to educate pt to use a supervisor garment manufacturing and dress his left leg first and take it out last from his underwear. At this time pt would require 2 person assist to help stand pt and assist to pull up his brief over his hips. OT ADL-Toileting Comments OT Toileting Comments Pt not having to go at this time. Pt states prior to his hip surgery- sits on the toilet and raises up his left knee/hip in order to reach to wipe. OT ADL-Bathing Comments OT Bathing Comments Pt would benefit from getting a tub bench or just sponge off initially and to have assist. M5 OT- IP IADL's Start: 01/18/23 11:14 Freq: Status: Active Protocol: Document 01/18/23 11:14 [facility] (Rec: 01/18/23 11:52 [facility] [id number]) OT-Instrumental Activities of Daily Living Deficits IADL Deficits Identified Deficits Home Safety Awareness Awareness of Need for Assistance at Home Decreased Awareness Home Safety Comments Pt is a bit insistent on his care, however states now that he is open to having his assist him at home if needed. M6 OT- IP Functional Cognition Start: 01/18/23 11:14 Freq: Status: Active Protocol: Document 01/18/23 11:14 [facility] (Rec: 01/18/23 11:52 [facility] [id number]) Cognitive Factors Limiting Selfcare Function Cognitive Ability Level of Alertness Alert Patient Orientation Name,Place,Situation Attention Span Ability Capable of Focused Attention, Capable of Sustained Attention Ability to Follow Commands Able to Follow One Step Commands with Increased Time, Able to Follow One Step Commands with Repetition Memory Description Short Term Impaired Safety Awareness Decreased Recall of Precautions,Decreased Ability to Apply Precautions, Underestimates Need for Assistance Cognitive Comments Cognitive Assessment Comments Pt needing reminders to incorporate his hip precautions during ADL and mobility needs. Pt is insistent that he will be fine at home and continuing to remind him that he will have to incorporate his his precautions now for all ADl and mobility needs. OT- Vision and Hearing OT- Hearing Assessment OT- Hearing Assessment Hearing Impaired,Use of Hearing Aids OT- Vision Assessment Visual Acuity Glasses All The Time M7 OT- IP Mobility and Balance Start: 01/18/23 11:14 Freq: Status: Active Protocol: Document 01/18/23 11:14 [facility] (Rec: 01/18/23 11:52 [facility] [id number]) OT-Transfer Assessment Sit to and From Stand Sit to and from Stand Maximum Assistance,1 Person Assistance Comments Mobility Comments Pt having difficulty to scoot forwards and needing visual demonstration and then able to do with SBA. Sit to stand MAXAx1 to stand to FWW and pt very unsteady. Pt only able to stand for several seconds and not able to put his left heel down on the floor this time. Spoke to nursing that pt is a two person transfer only at this time. OT- Balance Assessment Sitting Balance and Reactions Static Sitting Balance Ability Good Dynamic Sitting Balance Ability Fair Standing Balance and Reactions Static Standing Balance Ability Poor Dynamic Standing Balance Ability Poor M8 OT- IP Objective Assessments Start: 01/18/23 11:14 Freq: Status: Active Protocol: Document 01/18/23 11:14 [facility] (Rec: 01/18/23 11:52 [facility] [id number]) OT- Coordination Assessment Comments Coordination Comments Arthritic changes in his hands . M9 OT- IP Assessment and Plan Start: 01/18/23 11:14 Freq: Status: Active Protocol: Document 01/18/23 11:14 [facility] (Rec: 01/18/23 11:52 [facility] [id number]) OT Summary Assessment and Plan Potential Rehabilitation Potential Good Analytic Complexity at Evaluation Moderate Summary OT Impairments Pain,Strength,Balance, Functional Cognition, Functional Mobility,Grooming, Dressing,Toileting,Bathing, Toilet Transfers,Shower Transfers,Activity Tolerance Progress Towards Goals Slow Progress due to Pain,Slow Progress due to Medical Issues,Slow Progress due to Activity Tolerance,Slow Progress due to Cognition Assessment Summary Pt MOD complexity and main barriers are a small step to enter the house, decreased ability to incorporate and remember his hip precautions, now will need extensive two person assist for dressing/ toileting/bathing needs and coming to stand from lower surfaces. Pt would benefit from skilled rehab prior to going home. Pt however insistent on going home and therefore will need 24/7 assist and at times two person assist to assist pt, and home health. Looking to have pt's come in for caregiver training tomorrow. Goals Self-Feeding Goal Independent Grooming Goal Independent Dressing Goal Minimal Assistance Toileting Goal Minimal Assistance Bathing Goal Minimal Assistance Toilet Transfer Goal Independent Shower Transfer Goal Contact Guard Assistance Days to Meet Goals 20 Frequency of Treatment Frequency Of Treatment Once a Day Treatment Plan OT Treatment Plan ADL Training,Functional Cognition Training,Functional Mobility,Patient/Family Education,Discharge Planning Discharge Recommendations OT Discharge Recommendations SNF Rehab,Home vs SNF Other Discharge Recommendations Possibly home with 24/7 assist and home health if pt improves. Transportation Needs at Discharge Wheelchair/Cabulance
--- NOTE | 2023-01-18 12:37 | CM.DANOTE ---
Initial DCP Assessment Note Pt is a 77 yo male, resident of [facility], now POD#1 from left hip surgery by Dr Schneider PCP: Samira Parker Payer: [facility]/[employer] Reviewed chart, pt discussed in multidisciplinary rounds this morning. Therapies currently recommending SNF vs Home w/HH, patient adamant he will discharge home Met w/patient to introduce role and review DCP. Patient in good spirits, says he hopes to discharge home w/his tomorrow. Patient admits he has been mostly using a wheelchair around his home r/t his hip pain and that spouse assist with higher ADLs Patient feels his will be able to assist upon discharge, son Peter (who lives on [address]) is out of the country currently. Discussed home health, patient is hopeful to see his friend who is a PT on [address], but might be agreeable to HH PT if he has not improved dramatically by tomorrow Plan: Discharge home w/spouse is expected, HH pT vs outpatient PT, patient adamantly against a SNF upon discharge. Likely caregiver training with spouse tomorrow CM team following closely JIAN Han Discharge Planning/Care Management CM Discharge Assessment Start: 01/18/23 12:27 Freq: Status: Active Protocol: Document 01/18/23 12:27 [facility] (Rec: 01/18/23 12:36 [facility] [id number]) Discharge Planning Assessment Assigned Sales Route Driver JIAN Hopson DPOA/Assigned Designee Name Klever Erickson, spouse Contact Information [phone] Advance Directives? Yes Advance Directives on File Yes History Provided By Patient,Medical Record Prior Living Arrangements House Household Members spouse Type of transportation used prior to Relies on Others admit Independent with ADL's No: Patient uses a w/c at home r/t hip pain, spouse assists Is patient alert and oriented? Yes Needs Assistance With Grooming,Meal Prep,Managing Medications,Home Chores / Shopping Patient/Family Preference OP PT Therapy Comment Patient has a good friend that is a PT on [address] and would like to see him first choice, r/o need or want for HH w/ patient and spouse upon discharge Barriers to Discharge Yes Comment PT currently recommending SNF vs HH PT, patient wants to return home. Lives on [facility], spouse can transport Discharge Plan Home Transportation Arrangement Family Referrals Initiated None needed Additional Comment pt declines SNF and HH at this time Whiteboard Updated in Patient Room with Yes name and ext. # of Sales Route Driver
--- NOTE | 2023-01-18 13:10 | PT.IPTN ---
Current Diagnoses Unilateral primary osteoarthritis, left hip (01/17/23) Pain in left hip (01/17/23) Surgery Performed Operation Date: 01/17/23 13:15 Actual Procedures p Total Hip Arthroplasty(Left) - Saskia Schneider MD Physical Therapy Treatment Note M2 PT-IP Current Condition Start: 01/18/23 08:33 Freq: NEEDED Status: Active Protocol: Document 01/18/23 08:35 AMB (Rec: 01/18/23 09:15 AMB [id number]) Physical Therapy Current Condition Current Condition Evaluation Date 01/18/23 Treatment Diagnosis L posterior DIANNE Onset Date 01/17/23 M3 PT-IP Subjective Start: 01/18/23 08:33 Freq: NEEDED Status: Active Protocol: Document 01/18/23 14:43 TS (Rec: 01/18/23 15:10 TS [id number]) Subjective Physical Therapy Visit Type Type Treatment Note Visit Start Time 13:10 Visit Stop Time 13:45 Total Visit Minutes 35 Number of STOCK HOUSE WORKER Visits 1 Physical Therapy Visit Comments Patient Comments Pt agreeable to PT. M4 PT-IP Mobility and Gait Start: 01/18/23 08:33 Freq: NEEDED Status: Active Protocol: Document 01/18/23 14:43 TS (Rec: 01/18/23 15:10 TS [id number]) PT-Bed Mobility Assessment Sit to Supine Sit to Supine Contact Guard Assistance PT-Transfer Assessment Sit to and From Stand Sit to and from Stand Maximum Assistance,1 Person Assistance Equipment Transfer Assistive Device Bed Rail,Gait Belt Transfers Transfer Destination Bed Transfer Technique Stand Step Pivot Transfer Ability Level of Assist Minimal Assistance,1 Person Assistance Comments Mobility Comments Pt found resting in chair, agreeable to PT. PT recalled 2 /3 hip precatuions prior to mobility(no crossing of feet). Sit to stand MaxA from chair with FWW, pt requires cues for decreased hip flexion, is uncooridinated with UEs and management of FWW. Pt performed Stand step pivot transfer to chair Kushal with flexed posture and difficulty weight bearing through shoulders due to pain. Pt TTWB 's on L side due to possible contracture and pain in L hip, is very unsteady and has poor balance. Pt requires max cueing for FWW management and handplacement on FWW. Sit to supine CGA, pt uses momentum to swing LEs onto bed. Pt was left in bed with call light nearby and all needs met. Gait Assessment Gait Gait Assistance Required: Minimum Assistance,1 Person Assist Distance (Feet) 3 Able to Maintain Weight Bearing Status Yes During Gait Assistive Devices Assistive Device Gait Belt,Front Wheeled Walker Gait Deviations General Gait Pattern Antalgic,Decreased Stride Length,Wide Based Gait Factors Limiting Gait Function Factors Limiting Gait Function Decreased Activity Tolerance, Decreased Strength,Limited Range of Motion,Pain,Poor Balance Comments Gait Comments See mobility comments. Stair Climbing Assessment Comments Stair Climbing Comments Pt reports having 3/4 threshold to go over, not a 3 step. M5 PT-IP Objective Assessments Start: 01/18/23 08:33 Freq: NEEDED Status: Active Protocol: Document 01/18/23 08:35 AMB (Rec: 01/18/23 09:15 AMB [id number]) Orientation Orientation/Cognition Level of Alertness Alert Gross Range of Motion Lower Extremity ROM Assessment Left Impaired Impairments unable to attain neutral hip extension Strength Lower Extremity Strength Assessment Left Impaired Sensation Assessment Sensation Gross Sensation WNL M6 PT-IP Treatment Start: 01/18/23 08:33 Freq: NEEDED Status: Active Protocol: Document 01/18/23 14:43 TS (Rec: 01/18/23 15:10 TS [id number]) Physical Therapy Treatment Education Education Provided Precautions,Weight Bearing Status,Post-Op Packet M7 PT-IP Assessment and Plan Start: 01/18/23 08:33 Freq: NEEDED Status: Active Protocol: Document 01/18/23 14:43 TS (Rec: 01/18/23 15:10 TS [id number]) PT Summary Assessment and Plan Potential Rehabilitation Potential Fair Summary Impairments Pain,ROM,Strength,Balance,Gait Progress Towards Goals Slow Progress due to Pain,Slow Progress due to Medical Issues,Slow Progress due to Activity Tolerance Assessment Summary Pt continues to progress slowly with his mobility. Pt performed sit to stand from lower surface of chair MaxA with FWW, pt requires max cueing for sequencing. In standing he flexes heavily and uses forearms on FWW due to having difficulty weight bearing through his shoulders. He performed stand step pivot transfer to chair Kushal with a hopping gait on R side due to possible contracture on L and TTWB due to pain. PT is recommending SNF vs 09/01 assist available at home. Pt would benefit from stay in SNF to progress his functional mobility and activity tolerance, pt has refused to go to SNF. Pt lives on [address] [facility] and spoke with spouse on phone who would like him to go to rehab because her daughter will only be here through the weekend to help starting Monday and he would be too much assist for her. Also spoke with spouse on possibility of coming in tomorrow to see how pt is moving and because of how much work it is to get here would come if he was being discharged. Informed pt this therapist is not sure when he would be discharging. Goals Bed Mobility Goal Standby Assistance Transfer Goal Standby Assistance,Front Wheeled Walker Gait Goal Standby Assistance Gait Distance 100 Days to Meet Goals 5 Frequency of Treatment Frequency Of Treatment Twice a Day Treatment Plan Physical Therapy Treatment Plan Bed Mobility Training,Transfer Training,Gait Training, Therapeutic Exercise,Post Op Education,Neuromuscular Re-ed Other Recommendations and Next Treatment Instruct in HEP, review Focus posterior hip precuations, advance bed mobility and gait Precautions Posterior Hip Precautions No Hip Flexion > 90 degrees,No Hip Internal Rotation,No Hip Adduction Weight Bearing Status Weight Bearing Status Weight Bear as Tolerated Recommendations To Nursing Amount of Assist Needed 2 Person Assist Discharge Recommendations PT Discharge Recommendations Home with 09/01 Assist Available,Home Health,Home vs SNF Transportation Needs at Discharge Private Vehicle
[2023-01-18 21:24] VITALS: BP 103/62; PULSE 109; RESP 20; TEMP 36.1; O2SAT 95
[2023-01-18 21:30] VITALS: BP 103/62; PULSE 95
[2023-01-19] VITALS (7 sets, daily range): BP systolic 99–113; BP diastolic 66–74; PULSE 84–114; RESP 18; TEMP 35.9–36.2; O2SAT 93–98
[2023-01-19] MEDS: OXYCODONE IR 10 MG TABLET PO ×3 (04:56→16:59)
[2023-01-19 06:18] LABS: Add Manual Diff / Slide Review NO; Basophils Absolute Auto 0 /uL (0-100); Basophils Percent Auto 0.4 % (0-2); Eosinophils Absolute Auto 200 /uL (0-450); Eosinophils Percent Auto 1.5 % (2-4); Hematocrit 30.9 % (41-53); Hemoglobin 10.5 g/dL (13.5-17.5); Lymphocytes Absolute Auto 1700 /uL (1100-4500); Lymphocytes Percent Auto 15.4 % (25-40); Mean Corpuscular HGB Conc 33.9 % (30-36); Mean Corpuscular Hemoglobin 31.9 PG (26-34); Mean Corpuscular Volume 94.2 fL (80-100); Monocytes Absolute Auto 1300 /uL (0-900); Monocytes Percent Auto 12.1 % (3-14); Neutrophils Absolute Auto 7800 /uL (1500-7000); Neutrophils Percent Auto 70.6 % (50-75); Platelet Count 127 X10^3/uL (150-400); Red Blood Cell Count 3.28 X10^6/uL (4.5-5.9); Red Cell Distribution Width 14.3 % (11.6-14.8); White Blood Cell Count 11.1 X10^3/uL (4.5-11.0)
[2023-01-19 06:22] LABS: Alanine Aminotransferase 15 IU/L (<50); Albumin 3.1 g/dL (3.5-5.0); Albumin Globulin Ratio 0.9 (1.0-2.8); Alkaline Phosphatase 60 U/L (38-126); Aspartate Aminotransferase 29 IU/L (17-59); BUN Creatinine Ratio 40.7 (6-22); Bilirubin Total 1.4 mg/dL (0.2-1.3); Blood Urea Nitrogen 50 mg/dL (9-20); Calcium 8.2 mg/dL (8.4-10.2); Carbon Dioxide 29 mmol/L (22-32); Chloride 98 mmol/L (98-107); Estimated Glomerular Filt Rate > 60 mL/min (>60); Globulin 3.3 g/dL (1.7-4.1); Glucose 137 mg/dL (80-110); HEMOLYSIS < 15 (0-50); Potassium 4.5 mmol/L (3.4-5.1); Sodium 133 mmol/L (137-145); Total Protein 6.4 g/dL (6.3-8.2)
--- NOTE | 2023-01-19 07:34 | P.PN_ITS ---
Subjective Subjective Date Patient Seen: 01/19/23 Time Patient Seen: 07:34 Interval history: Pain is [id number]. Denies shortness of breath or chest pain. No fever or chills. Exam Vital Signs (past 8 hours): Oxygen Delivery Method Nasal Cannula Oxygen Flow Rate 3 Narrative Exam Narrative: 77-year-old male resting comfortably in bed in no apparent distress. Dressing is clean, dry and intact. Motor functions intact bilateral lower extremities. Const General: cooperative and comfortable Nutritional Appearance: average body habitus Orientation: alert Resp Effort & Inspection: normal respiratory effort and able to speak in complete sentences Objective Labs 01/19/23 05:46 01/19/23 05:46 Labs: Laboratory Results - last 24 hr 01/19/23 01/19/23 05:46 05:46 WBC 11.1 H RBC 3.28 L Hgb 10.5 L Hct 30.9 L MCV 94.2 MCH 31.9 MCHC 33.9 RDW 14.3 Plt Count 127 L Neut % (Auto) 70.6 Lymph % (Auto) 15.4 L Dougherty % (Auto) 12.1 Eos % (Auto) 1.5 L Baso % (Auto) 0.4 Neut # (Auto) 7800 H Lymph # (Auto) 1700 Dougherty # (Auto) 1300 H Eos # (Auto) 200 Baso # (Auto) 0 Sodium 133 L Potassium 4.5 Chloride 98 Carbon Dioxide 29 BUN 50 H Creatinine 1.23 Estimated GFR > 60 BUN/Creatinine Ratio 40.7 H Glucose 137 H Calcium 8.2 L Total Bilirubin 1.4 H AST 29 ALT 15 Alkaline Phosphatase 60 Total Protein 6.4 Albumin 3.1 L Globulin 3.3 Albumin/Globulin Ratio 0.9 L [facility] Medical History Afib (~2017) CAD (coronary artery disease) Chicken pox COPD (chronic obstructive pulmonary disease) (~2016) Current every day smoker Hearing loss History of COVID-19 (~06/2022) ILD (interstitial lung disease) Measles Mumps Normal esophagogastroduodenoscopy (EGD) (2020) Osteoarthritis PNA (pneumonia) Psoriasis Shoulder pain (~2006) Venous stasis of lower extremity Surgical History Anesthesia History of arthroplasty of right knee (08/23/16) History of cardiac cath History of surgery History of total left knee replacement (10/06/21) Hx of appendectomy (~1957) Hx of colonoscopy (07/2022) Hx of heart artery stent (03/29/21) Hx of hernia repair Hx of skin graft (~1957) Family History Brother Cancer Grandfather Accident Grandmother Cancer Grandfather History of heart disease Grandmother Cancer Social History household members: spouse Smoking Status: Former smoker alcohol intake: former Assessment & Plan Post-op Postoperative Procedures: Procedures Operation Date: 01/17/23 13:15 Actual Procedure Side Surgeon p Total Hip Arthroplasty Left Saskia Triston Schneider MD Postoperative day: 2 Postoperative status: doing well Postoperative plan: routine post-op care Postoperative plan narrative: Mobilize with physical therapy Posterior hip precautions Multimodal pain management Disposition likely home tomorrow, patient currently 2 person assist. Patient's would be unable to assist him on her own and will have extra help as of tomorrow. Quality VTE Deep Vein Thrombosis/Pulmonary Embolism Present on Admission: No
[2023-01-19] MEDS: allopurinoL 100 MG TABLET 300 MG PO (08:31)
[2023-01-19] MEDS: ATORVASTATIN 20 MG TABLET 40 MG PO (08:32)
[2023-01-19] MEDS: PANTOPRAZOLE DR 40 MG TABLET PO (08:32)
[2023-01-19] MEDS: ASPIRIN EC 81 MG TABLET PO ×2 (08:32→20:39)
[2023-01-19] MEDS: TORSEMIDE 10 MG TABLET 20 MG PO (08:32)
[2023-01-19] MEDS: ASCORBIC ACID 500 MG TABLET PO (08:32)
[2023-01-19] MEDS: DOCUSATE 100 MG CAPSULE PO ×2 (08:32→20:39)
[2023-01-19] MEDS: MAGNESIUM OXIDE 400 MG TABLET 500 MG PO (08:33)
[2023-01-19] MEDS: SPIRONOLACTONE 25 MG TABLET PO (08:33)
[2023-01-19] MEDS: polyethylene glycoL 3350 17 GM POWD.PACK PO (08:35)
--- NOTE | 2023-01-19 09:44 | PT.IPTN ---
Current Diagnoses Unilateral primary osteoarthritis, left hip (01/17/23) Pain in left hip (01/17/23) Surgery Performed Operation Date: 01/17/23 13:15 Actual Procedures p Total Hip Arthroplasty(Left) - Saskia Schneider MD Physical Therapy Treatment Note M2 PT-IP Current Condition Start: 01/18/23 08:33 Freq: NEEDED Status: Active Protocol: Document 01/19/23 09:04 SP (Rec: 01/19/23 10:05 SP [id number]) Physical Therapy Current Condition Current Condition Evaluation Date 01/18/23 Treatment Diagnosis L posterior DIANNE Onset Date 01/17/23 M3 PT-IP Subjective Start: 01/18/23 08:33 Freq: NEEDED Status: Active Protocol: Document 01/19/23 09:04 SP (Rec: 01/19/23 10:05 SP [id number]) Subjective Physical Therapy Visit Type Type Treatment Note Visit Start Time 09:04 Visit Stop Time 09:44 Total Visit Minutes 40 Notes Vitals during tx: supine: BP 110/72 HR 104 SaO2 96% on 3L (states is on at home) mobiltiy: 91-93% on NC O2 3L Number of BARREL CHARRER HELPER Visits 2 Physical Therapy Visit Comments Patient Comments Pt agreeable to PT 2nd attempt , 1st eating breakfast. Patient Goals Wanting to go home with HHPT and / son/ DIL to assist him. Therapy Pain Assessment Pain When Pain Assessed During Mobility Pain Present Pain Present Pain Reported Location Left Hip Intensity 8 Scale Used withmobility Description With Movement Pain Behaviors Facial Grimacing,Guarding, Wincing Pain Management Techniques Distraction,Modification of Treatment,Timing of Activity with Medications M4 PT-IP Mobility and Gait Start: 01/18/23 08:33 Freq: NEEDED Status: Active Protocol: Document 01/19/23 09:04 SP (Rec: 01/19/23 10:05 SP [id number]) PT-Bed Mobility Assessment Supine to Sit Supine to Sit Maximum Assistance,1 Person Assistance,Bedrails Scooting Scooting to Edge of Bed Moderate Assistance PT-Transfer Assessment Sit to and From Stand Sit to and from Stand Moderate Assistance,1 Person Assistance,Use of Upper Extremities Equipment Transfer Assistive Device Gait Belt,Front Wheeled Walker Transfers Transfer Destination Chair,Wheelchair Transfer Technique Stand Lateral ft scoot/hop pivot Transfer Ability Level of Assist Contact Guard Assistance, Minimal Assistance,1 Person Assistance,Use of Upper Extremities Comments Mobility Comments Mod A LLE support to EOB due to decreased strength with ed and use of strap on L foot, max A for trunk righting to sit (HOB flat assimulate home ) use bed rail R/ pull therapist hand LUE-no bed rail home), scoot to EOB CG/ Mod A and use bed rail. STS Min/Mod A w/ FWW, static stand use urinal Min/Mod A stability while pt used urinal. Lateral hop mainly on RLE, TTWB/ partial LLE with L knee flexed due to contracture in L knee w/ FWW Min A trunk stability. bed Chair, chair<> w/c. Cues for upright posture and FWW closer to self for better stability and safety. Pt trialed w/c mobility over shower threshold for assimulation home between rooms, Min A (tight bathroom and w/c pivot turning support required). Pt has 3/4 inch step to enter home usually backs up self but states son will be home assist him throught weekend and maybe into early next week. not available to come until tomorrow. Will continue to assess progress mobility. Pt requires alot time for mobility due to decrease strength/actvitit tolerance, SOB recovery. Gait Assessment Gait Gait Assistance Required: Minimum Assistance,1 Person Assist Distance (Feet) 3 Able to Maintain Weight Bearing Status Yes During Gait Assistive Devices Assistive Device Gait Belt,Front Wheeled Walker Gait Deviations General Gait Pattern Antalgic,Decreased Stride Length,Step-to Gait,Wide Based Gait Factors Limiting Gait Function Factors Limiting Gait Function Decreased Activity Tolerance, Decreased Strength,Limited Range of Motion,Pain,Poor Balance,Respiratory Distress Comments Gait Comments see mob comments Stair Climbing Assessment Comments Stair Climbing Comments Pt reports having 3/4 step enter home usually backs up self and thresholds between rooms. PT-Balance Assessment Sitting Balance and Reactions Static Sitting Balance Ability Good Dynamic Sitting Balance Ability Fair Standing Balance and Reactions Static Standing Balance Ability Fair Dynamic Standing Balance Ability Poor Device Used FWW M5 PT-IP Objective Assessments Start: 01/18/23 08:33 Freq: NEEDED Status: Active Protocol: Document 01/18/23 08:35 AMB (Rec: 01/18/23 09:15 AMB [id number]) Orientation Orientation/Cognition Level of Alertness Alert Gross Range of Motion Lower Extremity ROM Assessment Left Impaired Impairments unable to attain neutral hip extension Strength Lower Extremity Strength Assessment Left Impaired Sensation Assessment Sensation Gross Sensation WNL M6 PT-IP Treatment Start: 01/18/23 08:33 Freq: NEEDED Status: Active Protocol: Document 01/19/23 09:04 SP (Rec: 01/19/23 10:05 SP [id number]) Physical Therapy Treatment Exercises Exercises Ankle Pumps,Gluteal Sets,Quad Sets,Heel Slides Education Education Provided Precautions,Weight Bearing Status,Post-Op Packet Other Treatments Other Treatment Performed Pt recalled 3/3 precautions. M7 PT-IP Assessment and Plan Start: 01/18/23 08:33 Freq: NEEDED Status: Active Protocol: Document 01/19/23 09:04 SP (Rec: 01/19/23 10:05 SP [id number]) PT Summary Assessment and Plan Potential Rehabilitation Potential Fair Summary Impairments Pain,ROM,Strength,Balance,Gait Progress Towards Goals Slow Progress due to Pain,Slow Progress due to Medical Issues,Slow Progress due to Activity Tolerance Assessment Summary Pt requires increased time to complete position changes, most challenged bed mob to sit HOB flat Max A (as at home), Mod scoot to EOB, STS Mod A come full stand w/ FWW, Min A lateral scoot transfer bed<> chair<> w/c, decreased stance on LLE ITWB demonstrates). Hopeful pt will progress mobility, at this time pt stated son/DIL will be able to assist him through weekend and into beginning next week. BARREL CHARRER HELPER recommending 24/7 with /family assist him and CGT with tomorrow am, will [facility] us [facility]. WIll continue pm appt. Goals Bed Mobility Goal Standby Assistance Transfer Goal Standby Assistance,Front Wheeled Walker Gait Goal Standby Assistance Gait Distance 100 Days to Meet Goals 5 Frequency of Treatment Frequency Of Treatment Twice a Day Treatment Plan Physical Therapy Treatment Plan Bed Mobility Training,Transfer Training,Gait Training, Therapeutic Exercise,Post Op Education,Neuromuscular Re-ed Other Recommendations and Next Treatment Review HEP, hip precautions, Focus transfers and bed mob, CGT with set up tomorrow am when knows [employer] [facility] Precautions Posterior Hip Precautions No Hip Flexion > 90 degrees,No Hip Internal Rotation,No Hip Adduction Weight Bearing Status Weight Bearing Status Weight Bear as Tolerated Recommendations To Nursing Amount of Assist Needed 1 Person Assist Discharge Recommendations PT Discharge Recommendations Home with 09/01 Assist Available,Home Health Transportation Needs at Discharge Private Vehicle
[2023-01-19] MEDS: METOPROLOL ER 25 MG TABLET PO (09:54)
--- NOTE | 2023-01-19 12:34 | PM.PN.1 ---
Subjective Subjective Interval history: Feels well today, working with therapies was a bit challenging. He denies palpitations, dyspnea, cough, nausea. No chest pain. Exam Vital Signs (past 8 hours): - 01/19/23 07:00 01/19/23 07:26 01/19/23 09:54 Temperature 96.7 F L Pulse Rate 106 H 114 H 109 H Respiratory Rate 18 18 Blood Pressure 111/74 113/71 Pulse Oximetry 97 98 Oxygen Delivery Method Nasal Cannula Oxygen Flow Rate 3 3 Fraction of Inspired Oxygen 32 01/19/23 08:30 Temperature Pulse Rate Respiratory Rate Blood Pressure Pulse Oximetry Oxygen Delivery Method Nasal Cannula Oxygen Flow Rate Fraction of Inspired Oxygen Fraction of Inspired Oxygen 32 SaO2/FiO2 Ratio 306 Oxygen Delivery Method Nasal Cannula Oxygen Flow Rate 3 Narrative Exam Narrative: General:? Patient is well developed and well nourished, in no distress at this time. On 3 L via NC. HEENT:? Normocephalic, atraumatic, extraocular muscles intact, oral pharynx is clear and mucous membranes are moist. Neck: supple and symmetric, trachea is midline, no cervical adenopathy. Negative for JVD Chest:? Normal AP diameter and contour without kyphoscoliosis, no tachypnea, equal chest rise bilaterally. Lungs:? CTA b/l no wheezing rhonchi or rales. Cardio:?RRR no m/r/g. Abdomen: S NT ND. No CVA tenderness. Musculoskeletal:? Muscle strength and tone are equal within normal limits. Left hip dressing c/d/i. Extremities: No edema or joint effusions. No cyanosis or clubbing. Skin:? Pale,? Warm to touch,dry and intact without rashes. Neuro:? Alert and orientated x3,? sensation to touch intact in all extremities, no gross deficits noted of cranial nerves. Psych:? Patient has a well-kept appearance, appropriate affect, mental status attitude thought context and judgment are appropriate for age. Objective Labs 01/19/23 05:46 01/19/23 05:46 Labs: Laboratory Results - last 24 hr 01/19/23 01/19/23 05:46 05:46 WBC 11.1 H RBC 3.28 L Hgb 10.5 L Hct 30.9 L MCV 94.2 MCH 31.9 MCHC 33.9 RDW 14.3 Plt Count 127 L Neut % (Auto) 70.6 Lymph % (Auto) 15.4 L [place] % (Auto) 12.1 Eos % (Auto) 1.5 L Baso % (Auto) 0.4 Neut # (Auto) 7800 H Lymph # (Auto) 1700 [place] # (Auto) 1300 H Eos # (Auto) 200 Baso # (Auto) 0 Sodium 133 L Potassium 4.5 Chloride 98 Carbon Dioxide 29 BUN 50 H Creatinine 1.23 Estimated GFR > 60 BUN/Creatinine Ratio 40.7 H Glucose 137 H Calcium 8.2 L Total Bilirubin 1.4 H AST 29 ALT 15 Alkaline Phosphatase 60 Total Protein 6.4 Albumin 3.1 L Globulin 3.3 Albumin/Globulin Ratio 0.9 L PFSH Medical History Afib (~2017) CAD (coronary artery disease) Chicken pox COPD (chronic obstructive pulmonary disease) (~2016) Current every day smoker Hearing loss History of COVID-19 (~06/2022) ILD (interstitial lung disease) Measles Mumps Normal esophagogastroduodenoscopy (EGD) (2020) Osteoarthritis PNA (pneumonia) Psoriasis Shoulder pain (~2006) Venous stasis of lower extremity Surgical History Anesthesia History of arthroplasty of right knee (08/23/16) History of cardiac cath History of surgery History of total left knee replacement (10/06/21) Hx of appendectomy (~1957) Hx of colonoscopy (07/2022) Hx of heart artery stent (03/29/21) Hx of hernia repair Hx of skin graft (~1957) Family History Brother Cancer Grandfather Accident Grandmother Cancer Grandfather History of heart disease Grandmother Cancer Social History household members: spouse Smoking Status: Former smoker alcohol intake: former Assessment & Plan Assessment & Plan narrative: 1. chronic COPD / ILD with chronic hypoxic respriatory failure - no acute exacerbation, continue pulmicort and albuterol prn - respiratory therapy following 2. paroxysmal atrial fibrillation with RVR - not on chronic AC (? 2/2 peptic ulcer). - rate a bit fast today again, have increased metoprolol to BID, no current symptoms. Will increase to 37.5 mg BID. 3. HTN, chronic - continue home medications 4. R heart failure - continue home torsemide and spironolactone 5. Pre-DM - okay to continue home oral therapies, glucose 137 on AM labs 6. Obesity - -The patient is at much higher risk for medical and surgical complications because of his obesity This increases the difficulty and complexity of medical and surgical interventions and increases the chances of poor outcomes such as morbidity and mortality. 7. S/p Left DIANNE - management per ortho - DVT ppx with ASA BID per primary team Code: Full, Proxy: Klever Erickson, Medicine will continue to follow until discharge given medical complexity and high risk of medical and surgical complications. Discussed with case management staff and patient today. Quality VTE Deep Vein Thrombosis/Pulmonary Embolism Present on Admission: No
--- NOTE | 2023-01-19 13:10 | PT-IP ANOTE ---
Pt refused tx this afternoon, stating is really tired and hurting from working with PT earlier and then mobility with 2 nursing girls just recently. EMS COORDINATOR provided education on importance of mobility for build up strength for increased independance. Discussed refer CGT with tomorrow to know if she is able to give him the asstance requires for mobility more in bed than upright. Pt stated [place] [place] from [place], get in [place] at 1030 and hopefully be at hospital 11. Tentive CGT at 11-1130 [facility] KATHY Webster. Will continue to assess progress.
--- NOTE | 2023-01-19 13:33 | OT.IPNOTE ---
Attempted to see pt for OT, pt not wanting to get up as he states has already been seen 3 times. Able to give pt urinal as he requested.
--- NOTE | 2023-01-19 14:31 | PC.NURSE ---
after lunch patient wanted to go back to bed. pt had difficulty transferring back to bed. it took 3 nurses to get him up to standing position.
[2023-01-19] MEDS: OXYCODONE IR 5 MG TABLET PO (20:39)
[2023-01-19] MEDS: METOPROLOL ER 25 MG TABLET 37.5 MG PO (20:40)
[2023-01-20 00:49] VITALS: BP 117/83; PULSE 104; RESP 20; TEMP 35.7; O2SAT 97
[2023-01-20 02:21] VITALS: PULSE 107; RESP 20
[2023-01-20 06:01] VITALS: PULSE 102; RESP 16
[2023-01-20 06:38] LABS: Add Manual Diff / Slide Review NO; Basophils Absolute Auto 0 /uL (0-100); Basophils Percent Auto 0.5 % (0-2); Eosinophils Absolute Auto 200 /uL (0-450); Eosinophils Percent Auto 2.4 % (2-4); Hematocrit 29.2 % (41-53); Hemoglobin 9.9 g/dL (13.5-17.5); Lymphocytes Absolute Auto 1200 /uL (1100-4500); Lymphocytes Percent Auto 12.7 % (25-40); Mean Corpuscular HGB Conc 33.7 % (30-36); Mean Corpuscular Hemoglobin 32.1 PG (26-34); Mean Corpuscular Volume 95.2 fL (80-100); Monocytes Absolute Auto 900 /uL (0-900); Monocytes Percent Auto 9.7 % (3-14); Neutrophils Absolute Auto 7000 /uL (1500-7000); Neutrophils Percent Auto 74.7 % (50-75); Platelet Count 126 X10^3/uL (150-400); Red Blood Cell Count 3.07 X10^6/uL (4.5-5.9); Red Cell Distribution Width 14.6 % (11.6-14.8); White Blood Cell Count 9.4 X10^3/uL (4.5-11.0)
[2023-01-20 06:46] LABS: Alanine Aminotransferase 19 IU/L (<50); Albumin Globulin Ratio 0.9 (1.0-2.8); Alkaline Phosphatase 63 U/L (38-126); Aspartate Aminotransferase 30 IU/L (17-59); BUN Creatinine Ratio 36.6 (6-22); Bilirubin Total 1.5 mg/dL (0.2-1.3); Blood Urea Nitrogen 41 mg/dL (9-20); Calcium 8.3 mg/dL (8.4-10.2); Carbon Dioxide 35 mmol/L (22-32); Chloride 96 mmol/L (98-107); Estimated Glomerular Filt Rate > 60 mL/min (>60); Globulin 3.4 g/dL (1.7-4.1); Glucose 140 mg/dL (80-110); HEMOLYSIS < 15 (0-50); Potassium 4.3 mmol/L (3.4-5.1); Sodium 134 mmol/L (137-145); Total Protein 6.4 g/dL (6.3-8.2)
[2023-01-20 07:15] VITALS: BP 99/64; PULSE 92; RESP 21; TEMP 36.7; O2SAT 97
[2023-01-20 07:23] VITALS: PULSE 92; RESP 18; O2SAT 97
--- NOTE | 2023-01-20 08:26 | P.PN_ITS ---
Subjective Subjective Interval history: Patient is status post THR. Medically stable for discharge by Orthopedic Service today. Increased his metoprolol dose during this admission to better control heart rate with his atrial fibrillation. On further discussion with patient, his heart rate tends to run a little high at baseline and also he tends to run low blood pressures at home. He sees Dr. Yeung on a regular basis for cardiology follow-up. For I think it leave his metoprolol dose unchanged when he goes home. Exam Vital Signs (past 8 hours): - 01/20/23 00:49 01/20/23 02:21 01/20/23 06:01 Temperature 96.2 F L Pulse Rate 104 H 107 H 102 H Respiratory Rate 20 20 16 Blood Pressure 117/83 Pulse Oximetry 97 Oxygen Delivery Method Nasal Cannula Nasal Cannula Oxygen Flow Rate 3 3 3 Fraction of Inspired Oxygen 95 32 01/20/23 07:23 Temperature Pulse Rate 92 H Respiratory Rate 18 Blood Pressure Pulse Oximetry 97 Oxygen Delivery Method Nasal Cannula Oxygen Flow Rate 3 Fraction of Inspired Oxygen 32 Fraction of Inspired Oxygen 32 SaO2/FiO2 Ratio 303 Oxygen Delivery Method Nasal Cannula Oxygen Flow Rate 3 Objective Labs 01/20/23 06:13 01/20/23 06:13 Labs: Laboratory Results - last 24 hr 01/20/23 01/20/23 06:13 06:13 WBC 9.4 RBC 3.07 L Hgb 9.9 L Hct 29.2 L MCV 95.2 MCH 32.1 MCHC 33.7 RDW 14.6 Plt Count 126 L Neut % (Auto) 74.7 Lymph % (Auto) 12.7 L [place] % (Auto) 9.7 Eos % (Auto) 2.4 Baso % (Auto) 0.5 Neut # (Auto) 7000 Lymph # (Auto) 1200 [place] # (Auto) 900 Eos # (Auto) 200 Baso # (Auto) 0 Sodium 134 L Potassium 4.3 Chloride 96 L Carbon Dioxide 35 H BUN 41 H Creatinine 1.12 Estimated GFR > 60 BUN/Creatinine Ratio 36.6 H Glucose 140 H Calcium 8.3 L Total Bilirubin 1.5 H AST 30 ALT 19 Alkaline Phosphatase 63 Total Protein 6.4 Albumin 3.0 L Globulin 3.4 Albumin/Globulin Ratio 0.9 L [facility] Medical History Afib (~2018) CAD (coronary artery disease) Chicken pox COPD (chronic obstructive pulmonary disease) (~2016) Current every day smoker Hearing loss History of COVID-19 (~06/2022) ILD (interstitial lung disease) Measles Mumps Normal esophagogastroduodenoscopy (EGD) (2020) Osteoarthritis PNA (pneumonia) Psoriasis Shoulder pain (~2006) Venous stasis of lower extremity Surgical History Anesthesia History of arthroplasty of right knee (08/23/16) History of cardiac cath History of surgery History of total left knee replacement (10/06/21) Hx of appendectomy (~1957) Hx of colonoscopy (07/2022) Hx of heart artery stent (03/29/21) Hx of hernia repair Hx of skin graft (~1957) Family History Brother Cancer Grandfather Accident Grandmother Cancer Grandfather History of heart disease Grandmother Cancer Social History household members: spouse Smoking Status: Former smoker alcohol intake: former Quality VTE Deep Vein Thrombosis/Pulmonary Embolism Present on Admission: No
[2023-01-20] MEDS: OXYCODONE IR 10 MG TABLET PO ×2 (08:46→12:51)
[2023-01-20] MEDS: TORSEMIDE 10 MG TABLET 20 MG PO (08:47)
[2023-01-20] MEDS: SPIRONOLACTONE 25 MG TABLET PO (08:47)
[2023-01-20] MEDS: allopurinoL 100 MG TABLET 300 MG PO (08:47)
[2023-01-20] MEDS: DOCUSATE 100 MG CAPSULE PO (08:47)
[2023-01-20] MEDS: ATORVASTATIN 20 MG TABLET 40 MG PO (08:48)
[2023-01-20] MEDS: PANTOPRAZOLE DR 40 MG TABLET PO (08:48)
[2023-01-20] MEDS: ASPIRIN EC 81 MG TABLET PO (08:48)
[2023-01-20] MEDS: METOPROLOL ER 25 MG TABLET 37.5 MG PO (08:49)
[2023-01-20] MEDS: MAGNESIUM OXIDE 400 MG TABLET 500 MG PO (08:49)
[2023-01-20] MEDS: ASCORBIC ACID 500 MG TABLET PO (08:49)
[2023-01-20 09:30] VITALS: PULSE 89
--- NOTE | 2023-01-20 11:51 | PT.IPTN ---
Current Diagnoses Unilateral primary osteoarthritis, left hip (01/17/23) Pain in left hip (01/17/23) Surgery Performed Operation Date: 01/17/23 13:15 Actual Procedures p Total Hip Arthroplasty(Left) - Saskia Schneider MD Physical Therapy Treatment Note M2 PT-IP Current Condition Start: 01/18/23 08:33 Freq: NEEDED Status: Active Protocol: Document 01/19/23 09:04 SP (Rec: 01/19/23 10:05 SP [id number]) Physical Therapy Current Condition Current Condition Evaluation Date 01/18/23 Treatment Diagnosis L posterior DIANNE Onset Date 01/17/23 M3 PT-IP Subjective Start: 01/18/23 08:33 Freq: NEEDED Status: Active Protocol: Document 01/20/23 13:28 TS (Rec: 01/20/23 13:54 TS [id number]) Subjective Physical Therapy Visit Type Type Treatment Note Visit Start Time 11:51 Visit Stop Time 13:25 Total Visit Minutes 74 Notes Split treatment 11:51-12:40, 13:00-13:25 Spouse present for caregiver training Number of SILK SCREEN PRINTING RACKER Visits 3 Physical Therapy Visit Comments Patient Comments Pt found resting in bed, spouse in room, agreeable to PT. Patient Goals Wanting to go home with HHPT and / son/ DIL to assist him. Therapy Pain Assessment Pain When Pain Assessed During Mobility Pain Present Pain Present Pain Reported M4 PT-IP Mobility and Gait Start: 01/18/23 08:33 Freq: NEEDED Status: Active Protocol: Document 01/20/23 13:28 TS (Rec: 01/20/23 13:54 TS [id number]) PT-Bed Mobility Assessment Supine to Sit Supine to Sit Maximum Assistance,1 Person Assistance,Bedrails Scooting Scooting to Edge of Bed Maximum Assistance PT-Transfer Assessment Sit to and From Stand Sit to and from Stand Moderate Assistance,1 Person Assistance,Use of Upper Extremities Equipment Transfer Assistive Device Gait Belt,Front Wheeled Walker Transfers Transfer Destination Chair,Wheelchair Transfer Technique Stand Lateral ft scoot/hop pivot Transfer Ability Level of Assist Minimal Assistance,1 Person Assistance,Use of Upper Extremities Comments Mobility Comments Supine to sit HOB elevated MaxA with handheld assist for uprighting trunk and LLE to EOB, pt cued to come up on elbows and hands. Pt scooted to EOB MaxA x1 with transfer pad, spouse attempted handheld assist, pt with minimal lift of hip to scoot to EOB. Spouse educated on proper donning of gait belt, Sit to stand with FWW ModA from spouse, provided education of handplacement on pt. Stand step pivot transfer to w/c Kushal for balance, pt hops on RLE and TTWB on LLE, very unsteady and leans heavily on FWW. Pt performed sit to stand from w/c ModA for pivot transfer onto toilet. Sit to stand from toilet ModA for pivot transfer back into w /c. Pt was left in w/c, requesting to go home, RN notified. Gait Assessment Assistive Devices Assistive Device Gait Belt,Front Wheeled Walker Gait Deviations General Gait Pattern Antalgic,Decreased Stride Length,Step-to Gait,Wide Based Gait Factors Limiting Gait Function Factors Limiting Gait Function Decreased Activity Tolerance, Decreased Strength,Limited Range of Motion,Pain,Poor Balance,Respiratory Distress Comments Gait Comments Stand step pivot and pivot transfer x2. PT-Balance Assessment Sitting Balance and Reactions Static Sitting Balance Ability Good Dynamic Sitting Balance Ability Fair Standing Balance and Reactions Static Standing Balance Ability Fair Dynamic Standing Balance Ability Poor Device Used FWW M5 PT-IP Objective Assessments Start: 01/18/23 08:33 Freq: NEEDED Status: Active Protocol: Document 01/18/23 08:35 AMB (Rec: 01/18/23 09:15 AMB [id number]) Orientation Orientation/Cognition Level of Alertness Alert Gross Range of Motion Lower Extremity ROM Assessment Left Impaired Impairments unable to attain neutral hip extension Strength Lower Extremity Strength Assessment Left Impaired Sensation Assessment Sensation Gross Sensation WNL M6 PT-IP Treatment Start: 01/18/23 08:33 Freq: NEEDED Status: Active Protocol: Document 01/20/23 13:28 TS (Rec: 01/20/23 13:54 TS [id number]) Physical Therapy Treatment Education Education Provided Precautions,Weight Bearing Status,Post-Op Packet Other Treatments Other Treatment Performed Pt recalled 2/3 precautions( crossing feet). M7 PT-IP Assessment and Plan Start: 01/18/23 08:33 Freq: NEEDED Status: Active Protocol: Document 01/20/23 13:28 TS (Rec: 01/20/23 13:54 TS [id number]) PT Summary Assessment and Plan Potential Rehabilitation Potential Fair Summary Impairments Pain,ROM,Strength,Balance,Gait Progress Towards Goals Slow Progress due to Pain,Slow Progress due to Medical Issues,Slow Progress due to Activity Tolerance Assessment Summary Pt requires MaxA for all bed mobility this session. Spouse attempted to help pt scoot to EOB with handheld assist but unable to move forward, required MaxA with transfer pad. Spouse was educated on proper donning of gait belt and sequencing of sit to stand . Sit to stand ModA with assist from spouse for stand step pivot transfer to chair. Pt continues to hop on RLE with TTWB on LLE making very unsteady with transfer and gait. PT is recommending SNF vs home 24/7 assist w/HHPT. Pt 's caregiver who is his is not comfortable taking care of him on his own at this time. Pt would require 24/7 assist from someone other than his . PT's daughter and son-in-law will be currently staying until Monday but will not be able to assist after that. Therapist discussed the benefits of SNF with pt but pt states he will not go to rehab multiple times. Goals Bed Mobility Goal Standby Assistance Transfer Goal Standby Assistance,Front Wheeled Walker Gait Goal Standby Assistance Gait Distance 100 Days to Meet Goals 5 Frequency of Treatment Frequency Of Treatment Twice a Day Treatment Plan Physical Therapy Treatment Plan Bed Mobility Training,Transfer Training,Gait Training, Therapeutic Exercise,Post Op Education,Neuromuscular Re-ed Other Recommendations and Next Treatment Review HEP, hip precautions, Focus transfers and bed mob, CGT with set up tomorrow am when knows [employer] reservation Precautions Posterior Hip Precautions No Hip Flexion > 90 degrees,No Hip Internal Rotation,No Hip Adduction Weight Bearing Status Weight Bearing Status Weight Bear as Tolerated Recommendations To Nursing Amount of Assist Needed 1 Person Assist Discharge Recommendations PT Discharge Recommendations Home with 24/7 Assist Available,Home Health,Home vs SNF Other Discharge Recommendations Would benefit from SNF. Transportation Needs at Discharge Private Vehicle
--- NOTE | 2023-01-20 13:04 | PM.DS.1 ---
History of Present Illness History of Present Illness Date Patient Seen: 01/20/23 Time Patient Seen: 07:34 Chief complaint: OPB Narrative: Patient's pain has been moderate. Denies fever or chills. No nausea or vomiting. Discharge Providers Provider Date of admission: 01/17/23 13:48 Discharge Date: 01/20/23 Primary care physician: Samira Parker PA-C Consults: 12/29/22 10:47 Consult to Anesthesiology Routine Comment: Consulting Provider: Anesthesiologist Reason for consultation: Surgeon requested re: Cardiac history 01/17/23 10:59 Consult to Anesthesiology Routine Comment: Consulting Provider: Anesthesiologist Reason for consultation: Regional block for post operative pain control 01/17/23 16:54 Consult to Hospitalist Service Routine Comment: Consulting Provider: Lucas Hinojosa Reason for consultation: chf, copd, htn, cardiac Has provider been notified: Yes 01/17/23 17:20 Consult to Discharge Planning Routine Comment: Consult to Occupational Therapy Evaluate & Treat Comment: Physician Instructions: Evaluate and treat Consult to Physical Therapy Evaluate & Treat Comment: Physician Instructions: post op DIANNE protocol Discharge provider: Thomas Adamson PA-C Summary Hospital Course Discharge Diagnosis: 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 He has severe pain to the extent that he has been essentially wheelchair bound for about a year.? It has been getting progressively worse. Non-operative management has failed and the patient has requested total hip replacement. The risks, benefits and alternatives to surgery were discussed with the patient prior to proceeding. Risks discussed included, but were not limited to, failure to relieve pain, leg length discrepancy, dislocation, stiffness, infection, nerve damage, deep venous thrombosis, pulmonary embolism, stroke, coma, heart attack, permanent paralysis and , as well as the potential need for eventual revision of the prosthetic. Surgeon: Saskia Schneider Car Salter: Thomas Adamson Anesthesia Type: General Operative Notes Findings: Soft bone, severe osteoarthritis, adequate stability Closure Type: primary Specimen(s): none sent Prosthetic devices, grafts, tissues, transplants, or devices: Schneider and nephew R3 56, neutral poly liner, two screws 6.5mm, 36 by +4 cobalt, size 2 polar stem with collar, Estimated Blood Loss (mL): 500 Blood products transfused: none patient admitted to the hospital for the above-mentioned procedure. Patient underwent left total hip arthroplasty, posterior approach January 17, [address] Schneider. Consultation requested and patient was seen by hospitalist on January 19, 2000 for assistance with medical management of complex chronic conditions. Patient has remained stable. Will be discharged home today in stable condition. Exam Vital Signs (past 8 hours): - 01/20/23 06:01 01/20/23 07:23 01/20/23 07:15 Temperature 98.1 F Pulse Rate 102 H 92 H 92 H Respiratory Rate 16 18 21 Blood Pressure 99/64 Pulse Oximetry 97 97 Oxygen Delivery Method Nasal Cannula Nasal Cannula Oxygen Flow Rate 3 3 3 Fraction of Inspired Oxygen 32 32 01/20/23 09:30 Temperature Pulse Rate 89 Respiratory Rate Blood Pressure Pulse Oximetry Oxygen Delivery Method Oxygen Flow Rate Fraction of Inspired Oxygen Fraction of Inspired Oxygen 32 SaO2/FiO2 Ratio 303 Oxygen Delivery Method Nasal Cannula Oxygen Flow Rate 3 Narrative Exam Narrative: 77-year-old male resting comfortably in bed in no apparent distress. Dressing is clean, dry and intact. Motor functions intact bilateral lower extremities. Sensation grossly intact to light touch bilateral lower extremities. Const General: cooperative and comfortable Orientation: alert Resp Effort & Inspection: normal respiratory effort and able to speak in complete sentences Objective Labs 01/20/23 06:13 01/20/23 06:13 Labs: Laboratory Results - last 24 hr 01/20/23 01/20/23 06:13 06:13 WBC 9.4 RBC 3.07 L Hgb 9.9 L Hct 29.2 L MCV 95.2 MCH 32.1 MCHC 33.7 RDW 14.6 Plt Count 126 L Neut % (Auto) 74.7 Lymph % (Auto) 12.7 L Sheridan % (Auto) 9.7 Eos % (Auto) 2.4 Baso % (Auto) 0.5 Neut # (Auto) 7000 Lymph # (Auto) 1200 Sheridan # (Auto) 900 Eos # (Auto) 200 Baso # (Auto) 0 Sodium 134 L Potassium 4.3 Chloride 96 L Carbon Dioxide 35 H BUN 41 H Creatinine 1.12 Estimated GFR > 60 BUN/Creatinine Ratio 36.6 H Glucose 140 H Calcium 8.3 L Total Bilirubin 1.5 H AST 30 ALT 19 Alkaline Phosphatase 63 Total Protein 6.4 Albumin 3.0 L Globulin 3.4 Albumin/Globulin Ratio 0.9 L PFSH Medical History Afib (~2017) CAD (coronary artery disease) Chicken pox COPD (chronic obstructive pulmonary disease) (~2016) Current every day smoker Hearing loss History of COVID-19 (~06/2022) ILD (interstitial lung disease) Measles Mumps Normal esophagogastroduodenoscopy (EGD) (2020) Osteoarthritis PNA (pneumonia) Psoriasis Shoulder pain (~2006) Venous stasis of lower extremity Surgical History Anesthesia History of arthroplasty of right knee (08/23/16) History of cardiac cath History of surgery History of total left knee replacement (10/06/21) Hx of appendectomy (~1957) Hx of colonoscopy (07/2022) Hx of heart artery stent (03/29/21) Hx of hernia repair Hx of skin graft (~1957) Family History Brother Cancer Grandfather Accident Grandmother Cancer Grandfather History of heart disease Grandmother Cancer Social History household members: spouse Smoking Status: Former smoker alcohol intake: former Discharge Assessment & Plan Assessment and Plan Assessment: Patient progressing as expected status post left total hip arthroplasty, posterior approach Plan of Treatment: weightbearing as tolerated, posterior hip precautions multimodal pain management aspirin for DVT prophylaxis discharge home today in stable condition Discharge Plan Discharge Plan Patient Disposition: Home Discharge orders & Medications Prescriptions: New acetaminophen 325 mg Tablet 650 mg PO Q6H PRN (Reason: Fever/Mild Pain (1-3)) Qty: 60 0RF aspirin 81 mg Tablet,Delayed Release (Dr/Ec) 81 mg PO BID Qty: 60 0RF oxycodone 5 mg tablet 5 mg PO Q4H PRN (Reason: pain) Qty: 30 0RF Continued torsemide 20 mg tablet 20 mg PO DAILY Qty: 90 0RF allopurinol 300 mg tablet 300 mg PO DAILY Qty: 90 3RF Rx Instructions: Take 1 tablet daily after finishing the 100 mg tablets triamcinolone acetonide 0.05 % ointment 1 applic topical BID Qty: 80 0RF fluticasone propion-salmeterol 250-50 mcg/dose blister with device 1 ea PO BID Qty: 180 4RF rosuvastatin 20 mg Tablet 20 mg PO DAILY spironolactone 25 mg Tablet 25 mg PO DAILY pantoprazole 40 mg Tablet,Delayed Release (Dr/Ec) 40 mg PO DAILY fluticasone propionate 50 mcg/actuation spray,suspension 1 - 2 spray Intranasal QDAY PRN (Reason: Seasonal allergies) acetaminophen 500 mg capsule 1,000 mg PO BID MDD Max 3000 mg per day magnesium oxide 400 mg (241.3 mg magnesium) tablet 500 mg PO DAILY Ozempic 0.25 mg or 0.5 mg (2 mg/3 mL) pen injector 0.5 mg SUBCUT QWEEK Rx Instructions: for 4 weeks metoprolol succinate 25 mg tablet extended release 24 hr 25 mg PO DAILY albuterol sulfate [Ventolin HFA] 90 mcg/actuation HFA aerosol inhaler 2 puff INHALATION Q4-6H PRN (Reason: Shortness Of Breath) Qty: 8.5 5RF ascorbic acid (vitamin C) 500 mg tablet 500 mg PO DAILY Qty: 90 0RF Rx Instructions: Take with iron Discontinued oxycodone 5 mg tablet 5 mg PO BID PRN (Reason: pain) Qty: 14 0RF Follow up/Referrals: Samira Parker PA-C [Primary Care Provider] - Saskia Schneider MD [Physician] - As previously scheduled (Follow up w/ Katy Gomez PA-C, on 02/01/2023 @ 2:00 pm at [facility] in [place].) Diet/Activity/Treatments Diet: Diet as Tolerated Activity: Weightbearing as tolerated to left leg. Posterior hip precautions. Skin/Wound/Dressing Care Report to your healthcare provider any signs of infection, such as:: chills, fever, night sweats, unusual drainage and unusual redness Dressing: May shower. Leave dressing in place until follow up in office. No bathing or otherwise soaking incision. Call the office if the dressing becomes saturated inside. Visit Report/Discharge Packet Instructions: DI for Hip Replacement, DI for Prescription Opioid Use Stand Alone Forms: Patient Portal/API, Stroke Signs & Symptoms, Surgery Discharge Discharge Data Primary Care Provider: Samira Parker VTE Deep Vein Thrombosis/Pulmonary Embolism Present on Admission: No
--- NOTE | 2023-01-20 14:42 | CM.DPNOTE ---
DC Note PT continues to recommend SNF, patient adamantly refusing saying he is going home. According to [facility], spouse expressing concern in the room about taking patient home w/the level of assist patient is requiring. Patient adamant about returning home Discharge home expected today, w/family to assist (adult children here over the weekend), patient does not want HH JW
--- NOTE | 2023-01-20 15:39 | PC.NURSE ---
Day shift: Left unit at approx 1515 via WC. Uses WC at baseline. 2PPL max assist to get into the car. Pt does not want to go to SNF and refused this idea more than 5 times today. Dressing remains CDI. BLE's weak. Pt able to stand with assistance but not able to support his own weight. Spouse will have some help at home with additional family members.
== END 2023-01-20 15:42 | disposition home or self-care (01) | DRG 470 ==
LOC: OR 01-18 10:58 → AC 01-18 10:58
PROVIDERS: Internal Medicine; Admitting Provider Orthopaedic Surgery; PCP Physician Assistant; Referring Provider Orthopaedic Surgery; Visit Provider Orthopaedic Surgery
PROC: 0SRB0JZ Replacement of Left Hip Joint with Synthetic Substitute, Open Approach (ICD-10-PCS; CPT 27130; principal; 2023-01-17 13:15)
DX: M16.12 Unilateral primary osteoarthritis, left hip (principal); J96.11 Chronic respiratory failure with hypoxia; M87.9 Osteonecrosis, unspecified; J44.9 Chronic obstructive pulmonary disease, unspecified; I48.0 Paroxysmal atrial fibrillation; R73.03 Prediabetes; E66.9 Obesity, unspecified; I11.0 Hypertensive heart disease with heart failure; I50.9 Heart failure, unspecified; Z87.891 Personal history of nicotine dependence; Z68.30 Body mass index [BMI] 30.0-30.9, adult; Z99.81 Dependence on supplemental oxygen
CPT/HCPCS: 36415; 72170; 73502; 80053; 85025; 94762; 97162; 97166; 97530; C1776; C9290; J0171; J0690; J1100; J2250; J2405; J2704; J3010; J7613

== ENCOUNTER → 2023-02-02 14:01 | Outpatient (CLI) | payer MEDICARE, OTHER, SELFPAY ==
[2023-01-17 17:21] VITALS: BMI 30.4
[2023-02-02 19:35] LABS: Add Manual Diff / Slide Review NO; Basophils Absolute Auto 100 /uL (0-100); Basophils Percent Auto 0.6 % (0-2); Eosinophils Absolute Auto 500 /uL (0-450); Eosinophils Percent Auto 5.4 % (2-4); Hematocrit 35.4 % (41-53); Hemoglobin 11.6 g/dL (13.5-17.5); Lymphocytes Absolute Auto 1300 /uL (1100-4500); Lymphocytes Percent Auto 13.4 % (25-40); Mean Corpuscular HGB Conc 32.9 % (30-36); Mean Corpuscular Hemoglobin 30.9 PG (26-34); Mean Corpuscular Volume 94.1 fL (80-100); Monocytes Absolute Auto 700 /uL (0-900); Monocytes Percent Auto 7.1 % (3-14); Neutrophils Absolute Auto 7100 /uL (1500-7000); Neutrophils Percent Auto 73.5 % (50-75); Platelet Count 337 X10^3/uL (150-400); Red Blood Cell Count 3.76 X10^6/uL (4.5-5.9); Red Cell Distribution Width 14.6 % (11.6-14.8); White Blood Cell Count 9.7 X10^3/uL (4.5-11.0)
[2023-02-02 19:42] LABS: Alanine Aminotransferase 33 IU/L (<50); Albumin 3.5 g/dL (3.5-5.0); Alkaline Phosphatase 109 U/L (38-126); Aspartate Aminotransferase 31 IU/L (17-59); BUN Creatinine Ratio 26.4 (6-22); Bilirubin Total 1.1 mg/dL (0.2-1.3); Blood Urea Nitrogen 32 mg/dL (9-20); Carbon Dioxide 34 mmol/L (22-32); Chloride 95 mmol/L (98-107); Estimated Glomerular Filt Rate > 60 mL/min (>60); Globulin 3.4 g/dL (1.7-4.1); Glucose 130 mg/dL (80-110); HEMOLYSIS < 15 (0-50); Potassium 4.2 mmol/L (3.4-5.1); Sodium 136 mmol/L (137-145); Total Protein 6.9 g/dL (6.3-8.2)
[2023-02-02 19:57] LABS: Erythrocyte Sedimentation Rate 90 MM/HR (0-15)
== END ==
PROVIDERS: PCP Physician Assistant; Visit Provider Orthopaedic Surgery
DX: R79.82 Elevated C-reactive protein (CRP) (principal); Z01.812 Encounter for preprocedural laboratory examination
CPT/HCPCS: 80053; 85025; 85651; 86140

== ENCOUNTER → 2023-02-28 13:34 | Outpatient (CLI) | payer MEDICARE, OTHER, SELFPAY ==
[2023-01-17 17:21] VITALS: BMI 30.4
[2023-02-28 20:04] LABS: Hemoglobin A1C% w Est Avg Glu 5.4 % (4.0-6.0)
[2023-02-28 20:09] LABS: Uric Acid 4.7 mg/dL (3.5-8.5)
[2023-02-28 20:39] LABS: Creatinine Urine Random 50.5 mg/dL
[2023-02-28 20:44] LABS: Microalbumi Creatinin Ratio Ur 25.7 ug/mg CR (<30); Microalbumin Urine Random 1.3 mg/dL (0-1.6)
== END ==
PROVIDERS: Family Medicine; PCP Physician Assistant; Visit Provider Physician Assistant
DX: E11.69 Type 2 diabetes mellitus with other specified complication (principal); E66.9 Obesity, unspecified; I10 Essential (primary) hypertension; I27.20 Pulmonary hypertension, unspecified; N17.9 Acute kidney failure, unspecified; M10.072 Idiopathic gout, left ankle and foot
CPT/HCPCS: 82043; 82570; 83036; 84550

== ENCOUNTER → 2023-06-14 10:59 | Outpatient (CLI) | payer MEDICARE, OTHER, SELFPAY ==
[2023-01-17 17:21] VITALS: BMI 30.4
[2023-06-14 19:21] LABS: Add Manual Diff / Slide Review NO; Basophils Absolute Auto 0 /uL (0-100); Basophils Percent Auto 0.4 % (0-2); Eosinophils Absolute Auto 300 /uL (0-450); Eosinophils Percent Auto 3.8 % (2-4); Hematocrit 40.5 % (41-53); Hemoglobin 13.2 g/dL (13.5-17.5); Lymphocytes Absolute Auto 1400 /uL (1100-4500); Mean Corpuscular HGB Conc 32.7 % (30-36); Mean Corpuscular Hemoglobin 28.6 PG (26-34); Mean Corpuscular Volume 87.5 fL (80-100); Monocytes Absolute Auto 800 /uL (0-900); Neutrophils Absolute Auto 6100 /uL (1500-7000); Neutrophils Percent Auto 70.8 % (50-75); Platelet Count 177 X10^3/uL (150-400); Red Blood Cell Count 4.62 X10^6/uL (4.5-5.9); Red Cell Distribution Width 17.6 % (11.6-14.8); White Blood Cell Count 8.6 X10^3/uL (4.5-11.0)
[2023-06-14 19:23] LABS: BUN Creatinine Ratio 37.7 (6-22); Blood Urea Nitrogen 43 mg/dL (9-20); Calcium 9.8 mg/dL (8.4-10.2); Carbon Dioxide 30 mmol/L (22-32); Chloride 98 mmol/L (98-107); Estimated Glomerular Filt Rate > 60 mL/min (>60); Glucose 114 mg/dL (80-110); HEMOLYSIS < 15 (0-50); Potassium 4.5 mmol/L (3.4-5.1); Sodium 138 mmol/L (137-145)
[2023-06-14 19:33] LABS: NT-proBNP (BNP-Adult 18+) 384 pg/mL (<450)
== END ==
PROVIDERS: PCP Physician Assistant; Visit Provider Internal Medicine Cardiovascular Disease
DX: D64.9 Anemia, unspecified (principal); I50.812 Chronic right heart failure; I48.0 Paroxysmal atrial fibrillation; Z95.5 Presence of coronary angioplasty implant and graft
CPT/HCPCS: 80048; 83880; 85025

== ENCOUNTER → 2023-07-27 13:27 | Outpatient (CLI) | payer MEDICARE, OTHER, SELFPAY ==
[2023-01-17 17:21] VITALS: BMI 30.4
[2023-07-27 20:26] LABS: HEMOLYSIS < 15 (0-50); Iron 95 ug/dL (49-181)
[2023-07-27 20:27] LABS: BUN Creatinine Ratio 43.9 (6-22); Blood Urea Nitrogen 61 mg/dL (9-20); Calcium 9.1 mg/dL (8.4-10.2); Carbon Dioxide 27 mmol/L (22-32); Chloride 97 mmol/L (98-107); Estimated Glomerular Filt Rate 52 mL/min (>60); Glucose 117 mg/dL (80-110); HEMOLYSIS < 15 (0-50); Potassium 4.8 mmol/L (3.4-5.1); Sodium 136 mmol/L (137-145)
[2023-07-27 20:42] LABS: Percent Iron Saturation 27 % (20-50); Total Iron Binding Capacity 351 ug/dL (261-462); Transferrin 302 mg/dL (206-381)
[2023-07-27 21:01] LABS: TSH w/ Reflex to FT4 0.72 uIU/mL (0.47-4.68)
[2023-07-27 21:35] LABS: Folate 12.7 ng/mL (2.76-20.0); Vitamin B12 466 pg/mL (239-931)
== END ==
PROVIDERS: PCP Family Medicine; Visit Provider Family Medicine
DX: E11.9 Type 2 diabetes mellitus without complications (principal); D64.9 Anemia, unspecified; I50.9 Heart failure, unspecified; I48.0 Paroxysmal atrial fibrillation; F17.200 Nicotine dependence, unspecified, uncomplicated; I10 Essential (primary) hypertension
CPT/HCPCS: 80048; 82607; 82746; 83540; 83550; 84443

== ENCOUNTER → 2023-08-23 10:53 | Outpatient (CLI) | payer MEDICARE, OTHER, SELFPAY ==
[2023-01-17 17:21] VITALS: BMI 30.4
== END ==
LOC: RESP 10:54
PROVIDERS: PCP Family Medicine; Referring Provider Internal Medicine Cardiovascular Disease; Visit Provider Internal Medicine Cardiovascular Disease
DX: R06.02 Shortness of breath (principal); F17.210 Nicotine dependence, cigarettes, uncomplicated; J98.8 Other specified respiratory disorders
CPT/HCPCS: 94060; 94726; 94729

== ENCOUNTER → 2023-08-23 12:05 | Outpatient (CLI) | payer MEDICARE, OTHER, SELFPAY ==
[2023-01-17 17:21] VITALS: BMI 30.4
--- NOTE | 2023-08-23 12:06 | DI.ECHO.S_ITS ---
[facility] +---------+ Hospital +---------+ : : [address] [place] : : : : [id number] : : : : Phone: [phone] +---------+ Echocardiogram Report + + :Name: JENNIFER CARLOS Study Date: 08/23/2023 Height: 71 in : :[facility] ReadingLocation: Weight: 226 lb: : Gender: Male BSA: 2.2 m2 : :: 1945 Age: 78 yrs BP: 91/70 mmHg: :Reason For Study: RIGHT SIDED HEART FAILURE : :Ordering Physician: SHANNON, : :BEATRIS Performed By: Ada Hester : :Referring: BEATRIS ORTEGA : + + Interpretation Summary The study quality was technically difficult. The patient was in atrial fibrillation with heart rates between 105-115 bpm during the exam. Left ventricular ejection fraction is estimated to be 40 +/- 5%. The interventricular septum is flattened, consistent with a right ventricular pressure/volume condition. Diastolic function could not be accurately assessed due to atrial fibrillation. The right ventricle is severely dilated. Right ventricular systolic function is mild to moderately reduced. The right atrium is moderately dilated. There is mild to moderate tricuspid regurgitation. Right ventricular systolic pressure is estimated to be 37 mmHg plus the clinically estimated CVP which cannot be estimated on this exam. Compared to the prior study dated 11/25/2022, the right ventricle has increased in size and its systolic function reduced. the LV function has slightly decreased as well. Procedure: A two-dimensional transthoracic echocardiogram with color flow and Doppler was performed. The study quality was technically difficult. Comparison is made with the echocardiogram of 11/25/2022. The patient was in atrial fibrillation with heart rates between 105-115 bpm during the exam. Left Ventricle: The left ventricle is normal in size and wall thickness. Left ventricular ejection fraction is estimated to be 40 +/- 5%. The interventricular septum is flattened, consistent with a right ventricular pressure/volume condition. Diastolic function could not be accurately assessed due to atrial fibrillation. Right Ventricle: The right ventricle is severely dilated. Right ventricular systolic function is mild to moderately reduced. Atria: The left atrium grossly appears normal in size. The right atrium is moderately dilated. There is no Doppler evidence for an interatrial shunt. Mitral Valve: The mitral valve is normal in structure and function. There is no mitral regurgitation noted. Aortic Valve: The aortic valve is trileaflet. The aortic valve is mildly calcified. There is mild aortic valve sclerosis. There is no aortic valve stenosis. No aortic regurgitation is present. Tricuspid Valve: The tricuspid valve is not well visualized, but is grossly normal. There is mild to moderate tricuspid regurgitation. Right ventricular systolic pressure is estimated to be 37 mmHg plus the clinically estimated CVP which cannot be estimated on this exam. Pulmonic Valve: The pulmonic valve leaflets are thin and pliable; valve motion is normal. There is mild pulmonic regurgitation. Great Vessels: The aortic root is normal size. The dimensions of the ascending aorta are normal. The inferior vena cava was not well visualized. Pericardium/ Pleura There is no pericardial effusion. There is no pleural effusion. MMode/2D Measurements & Calculations LVIDd: 4.3 cm LVOT diam: 2.2 cm LVIDs: 3.4 cm Ao root diam: 3.3 cm FS: 20.5 % asc Aorta Diam: 3.2 cm IVSd: 1.0 cm Ao Arch Diam (Prox Trans): 3.1 cm LVPWd: 1.0 cm LV alonzo. diameter/BSA (cm/m^2): 1.9 LV sys. diameter/BSA (cm/m^2): 1.5 LA A2 area: 13.4 cm2 RA long axis: 5.5 cm LA A4 area: 15.2 cm2 RA area: 21.9 cm2 LA length (vol): 4.7 cm RA vol: 74.2 ml LA vol: 37.0 ml RA : 33.4 ml/m2 LA vol index: 16.7 ml/m2 RVD1 (basal): 4.7 cm RVD2 (mid): 4.5 cm TAPSE: 1.5 cm Doppler Measurements & Calculations Ao V2 max: 128.6 cm/sec LVOT Max Chris: 65.8 cm/sec Ao V2 mean: 99.6 cm/sec LV V1 max P.7 mmHg Ao max P.7 mmHg LV V1 VTI: 10.1 cm Ao mean P.3 mmHg ERIC(I,D): 2.1 cm2 Ao V2 VTI: 19.5 cm ERIC(V,D): 2.0 cm2 sev ratio: 0.52 ERIC indexed to BSA (cm^2/m^2): 0.93 MV E max chris: 96.3 cm/sec TR max chris: 301.5 cm/sec MV A max chris: 0.79 cm/sec TR max P.4 mmHg MV E/A: 121.7 PA V2 max: 98.7 cm/sec Med Peak E' Chris: 12.4 cm/sec PA V2 mean: 68.5 cm/sec E/E' med: 7.8 PA mean P.1 mmHg Lat Peak E' Chris: 10.8 cm/sec PA pr(Accel): 50.7 mmHg E/E' lat: 9.0 E/e' average: 8.4 MV dec time: 0.16 sec SV(LVOT): 40.2 ml Reading Physician:07:07 PM
== END ==
PROVIDERS: PCP Family Medicine; Referring Provider Internal Medicine Cardiovascular Disease; Visit Provider Internal Medicine Cardiovascular Disease
DX: I50.812 Chronic right heart failure (principal); I08.2 Rheumatic disorders of both aortic and tricuspid valves; J98.8 Other specified respiratory disorders; R06.02 Shortness of breath; F17.210 Nicotine dependence, cigarettes, uncomplicated
CPT/HCPCS: 93306; 94060; 94726; 94729

== ENCOUNTER → 2023-09-07 08:51 | Outpatient (CLI) | payer MEDICARE, OTHER, SELFPAY ==
[2023-01-17 17:21] VITALS: BMI 30.4
[2023-09-07 18:53] LABS: Add Manual Diff / Slide Review NO; Basophils Absolute Auto 0 /uL (0-100); Basophils Percent Auto 0.4 % (0-2); Eosinophils Absolute Auto 300 /uL (0-450); Eosinophils Percent Auto 3.7 % (2-4); Hematocrit 39.9 % (41-53); Hemoglobin 13.1 g/dL (13.5-17.5); Lymphocytes Absolute Auto 1000 /uL (1100-4500); Lymphocytes Percent Auto 12.7 % (25-40); Mean Corpuscular HGB Conc 32.9 % (30-36); Mean Corpuscular Hemoglobin 30.8 PG (26-34); Mean Corpuscular Volume 93.6 fL (80-100); Monocytes Absolute Auto 600 /uL (0-900); Monocytes Percent Auto 8.4 % (3-14); Neutrophils Absolute Auto 5700 /uL (1500-7000); Neutrophils Percent Auto 74.8 % (50-75); Platelet Count 158 X10^3/uL (150-400); Red Blood Cell Count 4.26 X10^6/uL (4.5-5.9); Red Cell Distribution Width 16.2 % (11.6-14.8); White Blood Cell Count 7.7 X10^3/uL (4.5-11.0)
[2023-09-07 19:18] LABS: BUN Creatinine Ratio 43.2 (6-22); Blood Urea Nitrogen 60 mg/dL (9-20); Calcium 9.7 mg/dL (8.4-10.2); Carbon Dioxide 27 mmol/L (22-32); Chloride 102 mmol/L (98-107); Cholesterol 132 mg/dL (140-199); Estimated Glomerular Filt Rate 52 mL/min (>60); Glucose 110 mg/dL (80-110); HDL Cholesterol 43 mg/dL (40-60); HEMOLYSIS < 15 (0-50); LDL Cholesterol Calculated 62 mg/dL (<100); Potassium 4.8 mmol/L (3.4-5.1); Sodium 137 mmol/L (137-145); Triglycerides 133 mg/dL (35-150)
[2023-09-07 19:21] LABS: Hemoglobin A1C% w Est Avg Glu 5.6 % (4.0-6.0)
== END ==
PROVIDERS: PCP Family Medicine; Visit Provider Family Medicine
DX: E11.9 Type 2 diabetes mellitus without complications (principal); D64.9 Anemia, unspecified; I10 Essential (primary) hypertension; E78.2 Mixed hyperlipidemia; I48.0 Paroxysmal atrial fibrillation
CPT/HCPCS: 80048; 80061; 83036; 85025

== ENCOUNTER → 2023-11-15 12:38 | Outpatient (CLI) | payer MEDICARE, OTHER, SELFPAY ==
[2023-10-02 13:18] VITALS: BMI 30.4
--- NOTE | 2023-11-15 12:39 | DI.RAD.S_ITS ---
PROCEDURE: FL FLUOROSCOPY >1HR COMPARISON: None. INDICATIONS: Sniff test, chest fluoroscopy FINDINGS: There is asymmetric elevation of the right hemidiaphragm. The right hemidiaphragm demonstrates mildly diminished motion with inspiration compared to the left. No paradoxical motion of the diaphragm with sniff test. No pleural effusion. IMPRESSION: No paradoxical motion of the diaphragm with sniff test. Asymmetric elevation of the right hemidiaphragm is unchanged. Dictated by: Mehul Hoffman M.D. on 11/15/2023 at 17:01 Approved by: Mehul Hoffman M.D. on 11/15/2023 at 17:03
== END ==
PROVIDERS: PCP Family Medicine; Referring Provider Internal Medicine; Visit Provider Internal Medicine
DX: J98.6 Disorders of diaphragm (principal); J96.11 Chronic respiratory failure with hypoxia; R06.02 Shortness of breath
CPT/HCPCS: 76000

== ENCOUNTER → 2023-11-16 11:20 | Outpatient (CLI) | payer MEDICARE, OTHER, SELFPAY ==
[2023-10-02 13:18] VITALS: BMI 30.4
[2023-11-16 19:15] LABS: Alanine Aminotransferase 19 IU/L (<50); Albumin 4.1 g/dL (3.5-5.0); Albumin Globulin Ratio 1.3 (1.0-2.8); Alkaline Phosphatase 108 U/L (38-126); Aspartate Aminotransferase 25 IU/L (17-59); BUN Creatinine Ratio 57.1 (6-22); Bilirubin Total 1.8 mg/dL (0.2-1.3); Carbon Dioxide 24 mmol/L (22-32); Chloride 100 mmol/L (98-107); Estimated Glomerular Filt Rate 35 mL/min (>60); Globulin 3.1 g/dL (1.7-4.1); Glucose 125 mg/dL (80-110); HEMOLYSIS 15 (0-50); Sodium 133 mmol/L (137-145); Total Protein 7.2 g/dL (6.3-8.2)
[2023-11-16 19:25] LABS: NT-proBNP (BNP-Adult 18+) 428 pg/mL (<450)
[2023-11-16 19:31] LABS: Hematocrit 43.2 % (41-53); Mean Corpuscular HGB Conc 32.5 % (30-36); Mean Corpuscular Hemoglobin 31.5 PG (26-34); Mean Corpuscular Volume 97.1 fL (80-100); Platelet Count 167 X10^3/uL (150-400); Potassium 5.6 mmol/L (3.4-5.1); Red Blood Cell Count 4.45 X10^6/uL (4.5-5.9); Red Cell Distribution Width 15.3 % (11.6-14.8)
[2023-11-16 19:43] LABS: Blood Urea Nitrogen 109 mg/dL (9-20)
[2023-11-16 19:46] LABS: Add Manual Diff / Slide Review YES
[2023-11-16 19:58] LABS: Neutrophils Absolute Manual 14220 /uL (3000-5900); Total Cells Counted 100
[2023-11-16 19:59] LABS: RBC Morphology Normal Morphology
[2023-11-16 20:05] LABS: Vitamin B12 408 pg/mL (239-931)
== END ==
PROVIDERS: PCP Family Medicine; Visit Provider Family Medicine
DX: J96.11 Chronic respiratory failure with hypoxia (principal); I50.9 Heart failure, unspecified; G62.9 Polyneuropathy, unspecified; I27.81 Cor pulmonale (chronic); J20.9 Acute bronchitis, unspecified; J42 Unspecified chronic bronchitis; E11.9 Type 2 diabetes mellitus without complications; I27.20 Pulmonary hypertension, unspecified; D64.9 Anemia, unspecified; I10 Essential (primary) hypertension
CPT/HCPCS: 80053; 82607; 83880; 85007; 85025

== ENCOUNTER → 2023-11-21 10:08 | Outpatient (CLI) | payer MEDICARE, OTHER, SELFPAY ==
[2023-10-02 13:18] VITALS: BMI 30.4
[2023-11-21 20:37] LABS: Hematocrit 40.8 % (41-53); Hemoglobin 13.4 g/dL (13.5-17.5); Mean Corpuscular HGB Conc 32.7 % (30-36); Mean Corpuscular Hemoglobin 32.1 PG (26-34); Mean Corpuscular Volume 97.9 fL (80-100); Platelet Count 134 X10^3/uL (150-400); Red Blood Cell Count 4.17 X10^6/uL (4.5-5.9); Red Cell Distribution Width 14.9 % (11.6-14.8); White Blood Cell Count 14.2 X10^3/uL (4.5-11.0)
[2023-11-21 20:38] LABS: Add Manual Diff / Slide Review YES; Alanine Aminotransferase 23 IU/L (<50); Albumin 3.8 g/dL (3.5-5.0); Albumin Globulin Ratio 1.3 (1.0-2.8); Alkaline Phosphatase 79 U/L (38-126); Aspartate Aminotransferase 28 IU/L (17-59); BUN Creatinine Ratio 48.6 (6-22); Blood Urea Nitrogen 51 mg/dL (9-20); Calcium 9.1 mg/dL (8.4-10.2); Carbon Dioxide 26 mmol/L (22-32); Chloride 102 mmol/L (98-107); Estimated Glomerular Filt Rate > 60 mL/min (>60); Globulin 2.9 g/dL (1.7-4.1); Glucose 99 mg/dL (80-110); HEMOLYSIS 16 (0-50); Sodium 132 mmol/L (137-145); Total Protein 6.7 g/dL (6.3-8.2)
[2023-11-21 20:40] LABS: Potassium 5.6 mmol/L (3.4-5.1)
[2023-11-21 20:46] LABS: NT-proBNP (BNP-Adult 18+) 524 pg/mL (<450)
[2023-11-21 20:52] LABS: Neutrophils Absolute Manual 12070 /uL (3000-5900); RBC Morphology Normal Morphology; Total Cells Counted 100
[2023-11-21 21:27] LABS: Vitamin B12 591 pg/mL (239-931)
== END ==
PROVIDERS: PCP Family Medicine; Visit Provider Family Medicine
DX: N17.9 Acute kidney failure, unspecified (principal); I50.9 Heart failure, unspecified; E11.9 Type 2 diabetes mellitus without complications
CPT/HCPCS: 80053; 82607; 83880; 85007; 85025

== ENCOUNTER → 2023-12-05 10:57 | Outpatient (CLI) | payer MEDICARE, OTHER, SELFPAY ==
[2023-10-02 13:18] VITALS: BMI 30.4
[2023-12-05 20:54] LABS: Add Manual Diff / Slide Review NO; Basophils Absolute Auto 0 /uL (0-100); Basophils Percent Auto 0.5 % (0-2); Eosinophils Absolute Auto 200 /uL (0-450); Eosinophils Percent Auto 3.2 % (2-4); Hematocrit 37.2 % (41-53); Hemoglobin 12.4 g/dL (13.5-17.5); Lymphocytes Absolute Auto 1000 /uL (1100-4500); Lymphocytes Percent Auto 15.6 % (25-40); Mean Corpuscular HGB Conc 33.5 % (30-36); Mean Corpuscular Hemoglobin 32.8 PG (26-34); Monocytes Absolute Auto 600 /uL (0-900); Monocytes Percent Auto 8.7 % (3-14); Neutrophils Absolute Auto 4600 /uL (1500-7000); Platelet Count 177 X10^3/uL (150-400); Red Blood Cell Count 3.79 X10^6/uL (4.5-5.9); Red Cell Distribution Width 14.6 % (11.6-14.8); White Blood Cell Count 6.4 X10^3/uL (4.5-11.0)
[2023-12-05 20:55] LABS: HEMOLYSIS < 15 (0-50); Iron 126 ug/dL (49-181)
[2023-12-05 20:59] LABS: Alanine Aminotransferase 20 IU/L (<50); Albumin 3.9 g/dL (3.5-5.0); Albumin Globulin Ratio 1.2 (1.0-2.8); Alkaline Phosphatase 79 U/L (38-126); Aspartate Aminotransferase 29 IU/L (17-59); BUN Creatinine Ratio 38.2 (6-22); Bilirubin Total 1.2 mg/dL (0.2-1.3); Bilirubin Unconjugated 0.9 mg/dL (0.0-1.1); Blood Urea Nitrogen 52 mg/dL (9-20); Calcium 8.9 mg/dL (8.4-10.2); Carbon Dioxide 30 mmol/L (22-32); Chloride 97 mmol/L (98-107); Estimated Glomerular Filt Rate 53 mL/min (>60); Globulin 3.2 g/dL (1.7-4.1); Glucose 106 mg/dL (80-110); HEMOLYSIS < 15 (0-50); Potassium 5.2 mmol/L (3.4-5.1); Sodium 135 mmol/L (137-145); Total Protein 7.1 g/dL (6.3-8.2)
[2023-12-05 21:07] LABS: Percent Iron Saturation 37 % (20-50); Total Iron Binding Capacity 338 ug/dL (261-462); Transferrin 263 mg/dL (206-381)
[2023-12-05 21:14] LABS: NT-proBNP (BNP-Adult 18+) 1020 pg/mL (<450)
[2023-12-05 21:33] LABS: Creatinine Urine Random 58.42 mg/dL
[2023-12-05 21:37] LABS: Microalbumin Urine Random 1.4 mg/dL (0-1.6)
[2023-12-05 22:12] LABS: Folate 18.9 ng/mL (2.76-20.0); Vitamin B12 553 pg/mL (239-931)
== END ==
PROVIDERS: PCP Family Medicine; Visit Provider Family Medicine
DX: N17.9 Acute kidney failure, unspecified (principal); I50.9 Heart failure, unspecified; D64.9 Anemia, unspecified; R79.89 Other specified abnormal findings of blood chemistry; E11.9 Type 2 diabetes mellitus without complications; R06.02 Shortness of breath
CPT/HCPCS: 80053; 80076; 82043; 82570; 82607; 82746; 83540; 83550; 83880; 85025

== ENCOUNTER → 2023-12-20 13:39 | Outpatient (CLI) | payer MEDICARE, OTHER, SELFPAY ==
[2023-10-02 13:18] VITALS: BMI 30.4
[2023-12-20 19:38] LABS: Add Manual Diff / Slide Review NO; Basophils Absolute Auto 100 /uL (0-100); Basophils Percent Auto 0.9 % (0-2); Eosinophils Absolute Auto 100 /uL (0-450); Eosinophils Percent Auto 1.7 % (2-4); Hematocrit 37.4 % (41-53); Hemoglobin 12.4 g/dL (13.5-17.5); Lymphocytes Absolute Auto 1300 /uL (1100-4500); Lymphocytes Percent Auto 15.6 % (25-40); Mean Corpuscular HGB Conc 33.1 % (30-36); Mean Corpuscular Hemoglobin 33.3 PG (26-34); Mean Corpuscular Volume 100.7 fL (80-100); Monocytes Absolute Auto 800 /uL (0-900); Monocytes Percent Auto 10.1 % (3-14); Neutrophils Absolute Auto 5900 /uL (1500-7000); Neutrophils Percent Auto 71.7 % (50-75); Platelet Count 166 X10^3/uL (150-400); Red Blood Cell Count 3.72 X10^6/uL (4.5-5.9); Red Cell Distribution Width 15.6 % (11.6-14.8); White Blood Cell Count 8.3 X10^3/uL (4.5-11.0)
[2023-12-20 19:45] LABS: BUN Creatinine Ratio 37.2 (6-22); Blood Urea Nitrogen 54 mg/dL (9-20); Calcium 9.4 mg/dL (8.4-10.2); Carbon Dioxide 32 mmol/L (22-32); Chloride 98 mmol/L (98-107); Estimated Glomerular Filt Rate 49 mL/min (>60); Glucose 113 mg/dL (80-110); HEMOLYSIS < 15 (0-50); Potassium 5.1 mmol/L (3.4-5.1); Sodium 139 mmol/L (137-145)
[2023-12-20 19:48] LABS: NT-proBNP (BNP-Adult 18+) 1220 pg/mL (<450)
== END ==
PROVIDERS: PCP Family Medicine; Visit Provider Family Medicine
DX: R06.02 Shortness of breath (principal); N17.9 Acute kidney failure, unspecified; J96.11 Chronic respiratory failure with hypoxia; I27.20 Pulmonary hypertension, unspecified; I50.9 Heart failure, unspecified; D64.9 Anemia, unspecified
CPT/HCPCS: 80048; 83880; 85025

== ENCOUNTER → 2024-01-05 11:01 | Outpatient (CLI) | payer MEDICARE, OTHER, SELFPAY ==
[2023-12-26 12:57] VITALS: BMI 30.4
[2024-01-05 19:04] LABS: Add Manual Diff / Slide Review NO; Basophils Absolute Auto 100 /uL (0-100); Basophils Percent Auto 0.7 % (0-2); Eosinophils Absolute Auto 200 /uL (0-450); Eosinophils Percent Auto 2.8 % (2-4); Hematocrit 39.6 % (41-53); Hemoglobin 12.9 g/dL (13.5-17.5); Lymphocytes Absolute Auto 600 /uL (1100-4500); Mean Corpuscular HGB Conc 32.6 % (30-36); Mean Corpuscular Hemoglobin 33.3 PG (26-34); Mean Corpuscular Volume 102.1 fL (80-100); Monocytes Absolute Auto 600 /uL (0-900); Monocytes Percent Auto 7.1 % (3-14); Neutrophils Absolute Auto 6500 /uL (1500-7000); Neutrophils Percent Auto 81.4 % (50-75); Platelet Count 173 X10^3/uL (150-400); Red Blood Cell Count 3.88 X10^6/uL (4.5-5.9); Red Cell Distribution Width 15.5 % (11.6-14.8)
[2024-01-05 19:14] LABS: BUN Creatinine Ratio 40.9 (6-22); Blood Urea Nitrogen 63 mg/dL (9-20); Calcium 9.3 mg/dL (8.4-10.2); Carbon Dioxide 28 mmol/L (22-32); Chloride 102 mmol/L (98-107); Estimated Glomerular Filt Rate 46 mL/min (>60); Glucose 101 mg/dL (80-110); HEMOLYSIS 15 (0-50); Potassium 5.2 mmol/L (3.4-5.1); Sodium 139 mmol/L (137-145)
[2024-01-05 19:21] LABS: NT-proBNP (BNP-Adult 18+) 753 pg/mL (<450)
== END ==
PROVIDERS: PCP Family Medicine
DX: R06.09 Other forms of dyspnea (principal)
CPT/HCPCS: 80048; 83880; 85025

== ENCOUNTER → 2024-03-04 12:33 | Outpatient (CLI) | payer MEDICARE, OTHER, SELFPAY ==
[2023-12-26 12:57] VITALS: BMI 30.4
--- NOTE | 2024-03-04 12:35 | DI.ECHO.S_ITS ---
[facility] +---------+ Hospital : : [address] : : [place] : : [id number] : : Phone: [phone] Echocardiogram Report + + :Name: JENNIFER CARLOS Study Date: 03/04/2024 Height: 71 in : :Hospital ReadingLocation: Weight: 233 lb: : Gender: Male BSA: 2.3 m2 : :: 1945 Age: 78 yrs BP: 82/56 mmHg: :Reason For Study: CHRONIC RT SIDED HEART FAILURE : :Ordering Physician: SHANNON, : :BEATRIS Performed By: Ada Hester : :Referring: BEATRIS YEUNG : + + Interpretation Summary technology professional notes: Patient blood pressure taken multiple times with readings of: 74/54mmHg, 77/54mmHg, 82/56mmHg. Patient denies any symptoms of dizziness, lightheaded, syncope or near syncope. Patient family memeber says he had an appointment with primary care doctor approximately 1 month ago which also had very low/ concerning readings without symptoms. Patient was instructed to start taking blood pressure recordings at home until follow up with Dr. Yeung. If any new symptoms develop he should come in to be seen. 1) Normal left ventricular size and thickness with mildly reduced systolic function (EF about 45%). 2) The interventricular septum is flattened, consistent with a right ventricular pressure/volume condition. 3) Severely enlarged right ventricle with moderately reduced function. 4) There is mild to moderate tricuspid regurgitation. 5) The right ventricular systolic pressure is estimated to be at least 37 mmHg based on an estimated right atrial pressure of 3 mm Hg. 6) Compared to the Echo done 08/23/2023, no significant change. Procedure: A two-dimensional transthoracic echocardiogram with color flow and Doppler was performed. Comparison is made with the echocardiogram of 08/23/2023. The study quality was technically difficult. The patient was in atrial fibrillation with heart rates between 108-115 bpm during the exam. Left Ventricle: The left ventricle is normal in size and wall thickness. Left ventricular ejection fraction is estimated to be 45 +/- 5%. The interventricular septum is flattened, consistent with a right ventricular pressure/volume condition. Diastolic function could not be accurately assessed due to atrial fibrillation. Right Ventricle: The right ventricle is severely dilated. Right ventricular systolic function is moderately reduced. Atria: The left atrium is small. The right atrium is mildly dilated. There is no Doppler evidence for an interatrial shunt. Mitral Valve: The mitral valve leaflets appear mildly thickened, but open well. There is no mitral regurgitation noted. Aortic Valve: The aortic valve is trileaflet. The aortic valve is mildly calcified. There is mild aortic valve sclerosis. There is no aortic valve stenosis. No aortic regurgitation is present. Tricuspid Valve: The tricuspid valve is not well visualized, but is grossly normal. There is mild to moderate tricuspid regurgitation. The right ventricular systolic pressure is estimated to be at least 37 mmHg based on an estimated right atrial pressure of 3 mm Hg. Pulmonic Valve: The pulmonic valve is not well visualized. There is trace pulmonic regurgitation. Great Vessels: The aortic root is normal size. The dimensions of the ascending aorta are normal. The IVC is of normal diameter and collapses greater than 50% with a sniff. This suggests a low right atrial pressure of 3 mm Hg. Pericardium/ Pleura There is a trivial pericardial effusion noted. There is an anterior echo-free space consistent with a fat pad. There is no pleural effusion. MMode/2D Measurements & Calculations LVIDd: 4.9 cm LVOT diam: 2.1 cm LVIDs: 3.8 cm Ao root diam: 3.3 cm FS: 23.6 % asc Aorta Diam: 3.2 cm IVSd: 0.80 cm Ao Arch Diam (Prox Trans): 2.8 cm LVPWd: 0.72 cm LV alonzo. diameter/BSA (cm/m^2): 2.2 LV sys. diameter/BSA (cm/m^2): 1.7 LA A2 area: 13.9 cm2 RA long axis: 6.2 cm LA A4 area: 10.0 cm2 RA area: 21.7 cm2 LA length (vol): 5.0 cm RA vol: 64.6 ml LA vol: 23.5 ml RA : 28.7 ml/m2 LA vol index: 10.4 ml/m2 IVC diam: 1.6 cm RVD1 (basal): 4.4 cm RVD2 (mid): 4.6 cm TAPSE: 1.5 cm Doppler Measurements & Calculations Ao V2 max: 149.1 cm/sec LVOT Max Chris: 63.5 cm/sec Ao V2 mean: 110.4 cm/sec LV V1 max P.6 mmHg Ao max P.9 mmHg LV V1 VTI: 7.8 cm Ao mean P.3 mmHg ERIC(I,D): 1.3 cm2 Ao V2 VTI: 20.9 cm ERIC(V,D): 1.4 cm2 sev ratio: 0.37 ERIC indexed to BSA (cm^2/m^2): 0.56 MV E max chris: 74.4 cm/sec TR max chris: 292.2 cm/sec MV A max chris: 0.50 cm/sec TR max P.2 mmHg MV E/A: 148.0 PA pr(Accel): 41.7 mmHg Med Peak E' Chris: 11.7 cm/sec E/E' med: 6.4 Lat Peak E' Chris: 9.3 cm/sec E/E' lat: 8.0 E/e' average: 7.2 MV dec time: 0.18 sec SV(LVOT): 26.2 ml Reading Physician:07:26 PM
== END ==
PROVIDERS: PCP Family Medicine; Referring Provider Internal Medicine Cardiovascular Disease; Visit Provider Internal Medicine Cardiovascular Disease
DX: I08.2 Rheumatic disorders of both aortic and tricuspid valves (principal); I50.812 Chronic right heart failure; I42.9 Cardiomyopathy, unspecified
CPT/HCPCS: 93306

== ENCOUNTER → 2024-03-07 08:37 | Outpatient (CLI) | payer MEDICARE, OTHER, SELFPAY ==
[2024-03-06 08:20] VITALS: BMI 30.4
== END ==
LOC: LAB 08:38
PROVIDERS: PCP Family Medicine; Visit Provider Family Medicine
DX: L03.119 Cellulitis of unspecified part of limb (principal)
CPT/HCPCS: 87070; 87075; 87205

== ENCOUNTER → 2024-03-14 10:34 | Outpatient (CLI) | payer MEDICARE, OTHER, SELFPAY ==
[2024-03-06 08:20] VITALS: BMI 30.4
[2024-03-14 19:49] LABS: Hematocrit 43.8 % (41-53); Hemoglobin 14.5 g/dL (13.5-17.5); Mean Corpuscular Hemoglobin 32.3 PG (26-34); Mean Corpuscular Volume 97.8 fL (80-100); Platelet Count 215 X10^3/uL (150-400); Red Blood Cell Count 4.48 X10^6/uL (4.5-5.9); Red Cell Distribution Width 13.7 % (11.6-14.8); White Blood Cell Count 7.9 X10^3/uL (4.5-11.0)
[2024-03-14 20:01] LABS: BUN Creatinine Ratio 45.2 (6-22); Blood Urea Nitrogen 61 mg/dL (9-20); Calcium 9.8 mg/dL (8.4-10.2); Carbon Dioxide 30 mmol/L (22-32); Chloride 98 mmol/L (98-107); Cholesterol 141 mg/dL (140-199); Estimated Glomerular Filt Rate 53 mL/min (>60); Glucose 99 mg/dL (80-110); HDL Cholesterol 39 mg/dL (40-60); HEMOLYSIS 32 (0-50); LDL Cholesterol Calculated 82 mg/dL (<100); Sodium 135 mmol/L (137-145); Triglycerides 102 mg/dL (35-150)
[2024-03-14 20:05] LABS: NT-proBNP (BNP-Adult 18+) 663 pg/mL (<450)
== END ==
PROVIDERS: PCP Family Medicine; Visit Provider Internal Medicine Cardiovascular Disease
DX: E78.5 Hyperlipidemia, unspecified (principal); R06.09 Other forms of dyspnea
CPT/HCPCS: 80048; 80061; 83880; 85027

== ENCOUNTER → 2024-08-19 10:46 | Outpatient (CLI) | payer MEDICARE, OTHER, SELFPAY ==
[2024-03-06 08:20] VITALS: BMI 30.4
[2024-08-19 18:54] LABS: Add Manual Diff / Slide Review NO; Basophils Absolute Auto 0 /uL (0-100); Basophils Percent Auto 0.5 % (0-2); Eosinophils Absolute Auto 300 /uL (0-450); Eosinophils Percent Auto 3.8 % (2-4); Hematocrit 49.6 % (41-53); Hemoglobin 16.3 g/dL (13.5-17.5); Lymphocytes Absolute Auto 1500 /uL (1100-4500); Lymphocytes Percent Auto 17.2 % (25-40); Mean Corpuscular HGB Conc 32.9 % (30-36); Mean Corpuscular Volume 97.4 fL (80-100); Monocytes Absolute Auto 700 /uL (0-900); Monocytes Percent Auto 8.5 % (3-14); Neutrophils Absolute Auto 5900 /uL (1500-7000); Platelet Count 155 X10^3/uL (150-400); Red Blood Cell Count 5.09 X10^6/uL (4.5-5.9); Red Cell Distribution Width 15.2 % (11.6-14.8); White Blood Cell Count 8.5 X10^3/uL (4.5-11.0)
[2024-08-19 19:07] LABS: Hemoglobin A1C% w Est Avg Glu 5.5 % (4.0-6.0)
[2024-08-19 19:12] LABS: BUN Creatinine Ratio 31.9 (6-22); Blood Urea Nitrogen 46 mg/dL (9-20); Calcium 9.1 mg/dL (8.4-10.2); Carbon Dioxide 29 mmol/L (22-32); Chloride 97 mmol/L (98-107); Estimated Glomerular Filt Rate 49 mL/min (>60); Glucose 102 mg/dL (80-110); HEMOLYSIS < 15 (0-50); Potassium 4.8 mmol/L (3.4-5.1); Sodium 138 mmol/L (137-145)
[2024-08-19 19:53] LABS: Creatinine Urine Random 60.92 mg/dL
[2024-08-19 19:57] LABS: Microalbumin Urine Random 1.6 mg/dL (0-1.6)
== END ==
PROVIDERS: PCP Family Medicine; Visit Provider Family Medicine
DX: D64.9 Anemia, unspecified (principal); E11.9 Type 2 diabetes mellitus without complications; I50.9 Heart failure, unspecified; J96.11 Chronic respiratory failure with hypoxia; N18.31 Chronic kidney disease, stage 3a; R79.89 Other specified abnormal findings of blood chemistry; I48.0 Paroxysmal atrial fibrillation; G62.9 Polyneuropathy, unspecified; I27.20 Pulmonary hypertension, unspecified
CPT/HCPCS: 80048; 82043; 82570; 83036; 85025

== ENCOUNTER → 2025-04-10 13:23 | Outpatient (CLI) | payer MEDICARE, OTHER, SELFPAY ==
[2024-03-06 08:20] VITALS: BMI 30.4
[2025-04-10 19:09] LABS: Blood Urea Nitrogen 53 mg/dL (9-20); Calcium 9.5 mg/dL (8.4-10.2); Carbon Dioxide 29 mmol/L (22-32); Chloride 96 mmol/L (98-107); Estimated Glomerular Filt Rate 50 mL/min (>60); Glucose 95 mg/dL (70-99); HEMOLYSIS < 15 (0-50); Potassium 4.9 mmol/L (3.4-5.1); Sodium 136 mmol/L (137-145)
[2025-04-10 19:20] LABS: NT-proBNP (BNP-Adult 18+) 806 pg/mL (<450)
[2025-04-10 19:30] LABS: Hemoglobin A1C% w Est Avg Glu 5.7 % (4.0-6.0)
[2025-04-10 19:43] LABS: Microalbumi Creatinin Ratio Ur 199.0 ug/mg CR (<30)
[2025-04-10 20:00] LABS: Vitamin B12 490 pg/mL (239-931)
== END ==
PROVIDERS: PCP Family Medicine; Visit Provider Family Medicine
DX: E11.9 Type 2 diabetes mellitus without complications (principal); I50.9 Heart failure, unspecified; D64.9 Anemia, unspecified; J96.11 Chronic respiratory failure with hypoxia; N18.31 Chronic kidney disease, stage 3a
CPT/HCPCS: 80048; 82043; 82570; 82607; 83036; 83880